=== PATIENT | female | born 1945 | race Caucasian/White ===

== ENCOUNTER 2024-08-25 22:38 | Emergency (ER) | payer MEDICARE, SELFPAY ==
[2024-08-25 22:47] VITALS: BP 171/92; PULSE 97; TEMP 36.4; O2SAT 100; BMI 27.4
--- NOTE | 2024-08-25 23:03 | ED_ITS ---
HPI HPI - General Adult General Chief complaint: Nausea/Vomiting/Diarrhea Stated complaint: HEADACHE, NAUSEA Time Seen by Provider: 08/25/24 22:52 Source: patient Mode of arrival: walk-in History of Present Illness HPI narrative: 79-year-old female to the emergency department with chief complaint of left- sided facial pressure, nasal congestion, nausea, and mild dizziness. Symptoms began this morning. They gradually got worse throughout the day. She denies any vision changes or eye pain. It is a pressure-like feeling in her frontal region. She has been sick for several days with URI type symptoms. She denies any vision changes, numbness, weakness, tingling, difficulty walking or speaking. She does have a history of migraines but reports that this is not a headache or similar to a migraine. She denies any fever, sweats, chills. She reports nausea without vomiting. Related Data Previous Rx's ?Medication ?Instructions ?Recorded amoxicillin 875 mg-potassium 1 tab PO Q12H #14 tabs 08/26/24 clavulanate 125 mg tablet ondansetron 4 mg disintegrating 4 mg PO Q8H PRN nausea and 08/26/24 tablet vomiting 4 days #16 tabs Allergies Allergy/AdvReac Type Severity Reaction Status Date / Time No Known Drug Allergies Allergy Verified 08/25/24 22:51 Opioid HPI Opioid Management Most Recent Opioid Data: No Data to Display Review of Systems ROS Status of ROS 10 or more systems reviewed and unremark able except as noted in history and below PFSH PFSH Social History Little interest or pleasure in doing things: not at all Feeling down, depressed, or hopeless: not at all Exam Narrative Exam Narrative: VITALS: I have reviewed the triage vital signs. GENERAL: Well developed, well appearing adult female in no acute distress. NEURO: Alert and oriented. Moves all extremities. Face is symmetric and expressive. EYES: PERRL. No scleral icterus or conjunctival injection. No discharge. Globes soft bilaterally. HENT: Normocephalic, atraumatic. Hearing is grossly intact. Nares grossly patent and without discharge. Mucous membranes moist. Tenderness with percussion over the frontal sinuses. Left TM effusion, right TM normal. No temporal tenderness. Cardio: Regular rate and rhythm. No JVD. No lower extremity swelling. Respiratory: Lung sounds clear. Easy respirations. No increased work of breathing. NECK: No JVD. Patient moves neck without restriction. EXTREMITIES: Symmetric muscle bulk. No joint swelling. No clubbing, cyanosis, or deformity. SKIN: Warm and dry. Normal turgor. No rash or lesions appreciated. PSYCH: Anxious Constitutional Vital Signs, click to edit/add: Last Vital Signs Temp 97.5 F L 08/25/24 22:47 Pulse 88 08/26/24 01:03 Resp 16 08/26/24 01:03 BP 138/90 08/26/24 01:03 Pulse Ox 96 08/26/24 01:04 O2 Del Method Room Air 08/26/24 01:04 O2 Flow Rate 0 08/25/24 23:53 Course Vital Signs Vital signs: Vital Signs Temperature 97.5 F L 08/25/24 22:47 Pulse Rate 97 H 08/25/24 22:47 Respiratory Rate 24 H 08/25/24 22:47 Blood Pressure 171/92 H 08/25/24 22:47 Pulse Oximetry 100 08/25/24 22:47 Oxygen Delivery Method Room Air 08/25/24 22:47 Temperature 97.5 F L 08/25/24 22:47 Pulse Rate 88 08/26/24 01:03 Respiratory Rate 16 08/26/24 01:03 Blood Pressure 138/90 08/26/24 01:03 Pulse Oximetry 96 08/26/24 01:04 Oxygen Delivery Method Room Air 08/26/24 01:04 Oxygen Delivery Flow Rate 0 08/25/24 23:53 Medical Decision Making MDM Narrative Medical decision making narrative: 79-year-old female to the emergency department with chief complaint of nasal congestion, left-sided sinus pain, dizziness. Vital stable, the patient is afebrile. History and exam are concerning for acute sinusitis. No other evidence of acute process. She is tender to percussion over the sinus, not a headache. Not tender over the adventism. Do not believe this represents giant cell arteritis. No focal neurologic deficits. I discussed my suspicion with the patient and her daughter. They are agreeable with treatment. Toradol and dexamethasone for symptoms. Augmentin for sinusitis. Zofran for mild nausea. While awaiting her medications the patient complained of some shortness of breath. When evaluated the patient at the bedside. She was very anxious and appeared to be having a panic attack. Her lungs were clear to auscultation. Her pulse ox was normal. After discussing with the patient and she was able to relax and was no longer experiencing shortness of breath. Chest x-ray and EKG were ordered to make sure we are not missing anything. Patient agreed with this plan. Chest x-ray without acute findings. EKG without evidence of ischemia. COVID test is positive Patient reexamined at the bedside. She feels much improved. She would like discharge which I believe is reasonable. Zofran for nausea. She is instructed to use Tylenol or ibuprofen for her pain and fever. Zofran for nausea. Return precautions were discussed. All questions were answered. The patient was discharged home Medical Records Medical records reviewed: Yes I reviewed the patient's medical records Lab Data Lab results reviewed: Yes I reviewed the patient's lab results Labs: Lab Results 08/25/24 Range/Units 23:57 Influenza Type A Ag Negative Influenza Type B Ag Negative SARS-CoV-2 Ag (CV2AG) Positive A (NEGATIVE) Imaging Data Chest x-ray: Radiologist's impression: ITS Impressions Chest X-Ray 08/25/24 23:19 IMPRESSION: 1. No acute cardiopulmonary process. 2. Hyperexpanded lungs suggestive of COPD. Electronically authenticated by: REGAN HERMAN Date: 08/25/2024 23:53 ECG Data Attestation: I personally reviewed and interpreted this ECG as follows: (Normal sinus rhythm at a rate of 78. No STEMI. Normal QTc) Discharge Plan Discharge Chief Complaint: Nausea/Vomiting/Diarrhea Clinical Impression: Acute frontal sinusitis, COVID-19 Patient Disposition: Home, Self-Care Time of Disposition Decision: 01:15 Condition: Good Mode of Transportation: Private Vehicle Prescriptions / Home Meds: New ondansetron 4 mg tablet,disintegrating 4 mg PO Q8H PRN (Reason: nausea and vomiting) 4 Days Qty: 16 0RF amoxicillin-pot clavulanate 875-125 mg tablet 1 tab PO Q12H Qty: 14 0RF Print Language: [place] Instructions: Sinusitis (ED), COVID-19 (Coronavirus Disease 2019) (ED) Additional Instructions: Call the office of your primary care doctor to arrange for follow-up within the above-stated timeframe. Your ED visit was focused on your acute issue and does not replace primary care. You should review your labs, imaging, and diagnoses from this ED visit with your primary care physician. There may be non-emergent/ incidental findings that need further evaluation. You should review your vital signs including blood pressure with your PCP. If you were prescribed medications you should discuss possible side-effects and drug interactions with your pharmacist. Call 911 or go to the nearest Emergency Department if you develop any new or worsening symptoms. Seek immediate medical attention if you develop: worsening shortness of breath, difficulty breathing, chest pain, nausea, vomiting, weakness, numbness, tingling, excessive sweating, loss of motion in your arms or legs, or any new or worsening symptoms. Referrals: MUSHTAQ FERRARO [Primary Care Provider] - 1 week
[2024-08-25 23:07] VITALS: O2SAT 100
--- NOTE | 2024-08-25 23:19 | ECG_ITS ---
The [facility] Test Date: 2024-08-25 Pat Name: MIHAI FENTON Department: Room: - Gender: Female Educational Psychologist: : 1945 Requested By: MUSHTAQ FERRARO Order Number: [id number] Reading MD: KATIE SEAY Measurements Intervals [place] Rate: 78 P: 69 MA: 146 QRS: 79 QRSD: 82 T: 65 QT: 382 QTc: 416 Interpretive Statements 1100 Sinus rhythm 9110 normal ECG Compared to ECG 12/14/2020 08:28:28 No significant changes Electronically Signed On 08-28-2024 8:13:24 EST by KATIE SEAY
--- NOTE | 2024-08-25 23:19 | XR_ITS ---
The [address] [address] Patient Name: MIHAI FENTON MRN: [id number] date: 1945 Sex: F Assigned Patient Location: ER Current Patient Location: ER Accession/Order Number: [id number] Exam Date: 08/25/2024 23:30 Report Date: 08/25/2024 23:53 At the request of: FRAN TRACEY Procedure: XR chest 2V EXAMINATION: XR chest 2V HISTORY: shortness of breath COMPARISON: No relevant comparison available. FINDINGS: LUNGS: No significant pulmonary parenchymal abnormalities. VASCULATURE: No increased pulmonary vasculature. PLEURA: No pneumothorax, effusion, or pleural thickening. CARDIAC: No cardiomegaly or cardiac silhouette abnormality. MEDIASTINUM: No visible mass or adenopathy. BONES: No fracture or visible bone lesion. OTHER: Negative. XR/XR chest 2V IMPRESSION: 1. No acute cardiopulmonary process. 2. Hyperexpanded lungs suggestive of COPD. Electronically authenticated by: REGAN HERMAN Date: 08/25/2024 23:53
[2024-08-25] MEDS: ONDANSETRON 4 MG RAPDIS TABLET SL (23:50)
[2024-08-25] MEDS: DEXAMETHASONE SOD PHOS 10 MG/ML VIAL PO (23:51)
[2024-08-25] MEDS: AMOXICILLIN/POT CLAV 875-125 MG TABLET 1 TAB PO (23:52)
[2024-08-25] MEDS: KETOROLAC TROMETHAMINE 30 MG/ML VIAL IM (23:52)
[2024-08-25 23:53] VITALS: O2SAT 95
--- NOTE | 2024-08-25 23:53 | PC.NURSE ---
placed on 1L nc for comfort
[2024-08-26 00:44] LABS: Influenza Virus A Antigen Negative; Influenza Virus B Antigen Negative; Internal Control Within Normal Limits
[2024-08-26 00:45] LABS: SARS-CoV-2 Ag POSITIVE (NEGATIVE)
[2024-08-26 01:03] VITALS: BP 138/90; PULSE 88; O2SAT 96
[2024-08-26 01:04] VITALS: O2SAT 96
--- NOTE | 2024-08-26 01:04 | PC.NURSE ---
NC removed to monitor pt, pt states feeling better at this time
== END 2024-08-26 01:30 | disposition home or self-care (01) ==
PROVIDERS: Emergency Provider Student in an Organized Health Care Education/Training Program; PCP Family Medicine
DX: U07.1 COVID-19 (principal); J01.10 Acute frontal sinusitis, unspecified
CPT/HCPCS: 71046; 87804; 87811; 93005; 96372; 99285; J1100; J1885; Q0162

== ENCOUNTER 2025-06-17 18:19 | Emergency (ER) | payer MEDICARE, SELFPAY ==
[2025-06-17 18:28] VITALS: BP 159/98; PULSE 91; TEMP 37.3; O2SAT 96; BMI 21.6
--- NOTE | 2025-06-17 18:42 | ED.EXTPRO1 ---
HPI - Extremity Problem General Chief complaint: Extremity Problem, Nontraumatic Stated complaint: RIGHT FOOT HURTS Time Seen by Provider: 06/17/25 18:29 Source: patient Mode of arrival: walk-in History of Present Illness HPI Narrative: Patient presents to the emergency department with complaints of right foot and ankle pain that is began to radiate into the calf and lower leg. Patient states that symptoms been ongoing over the past 2 months. Patient initially had seen her doctor who prescribed a cream which she applied however pain was not improving so he obtained x-rays approximately 1 week ago that showed no obvious fracture. Patient referred to podiatry and has a follow-up appointment on Friday however she states that the pain is persisting despite the use of Tylenol and was looking up possibilities online and is concerned that it could be a blood clot. Patient denies any chest pain or shortness of breath MD Complaint: Reports extremity pain Onset (ago): month(s) Pain Consistency: Reports intermittent Location: Reports right and lower extremity Radiation: Reports proximal Relieving factors: Reports rest Exacerbating factors: Reports range of motion, weight bearing and walking Associated symptoms: Reports denies other symptoms; Denies chest pain or shortness of breath Related Data Previous Rx's ?Medication ?Instructions ?Recorded amoxicillin 875 mg-potassium 1 tab PO Q12H #14 tabs 08/26/24 clavulanate 125 mg tablet ondansetron 4 mg disintegrating 4 mg PO Q8H PRN nausea and 08/26/24 tablet vomiting 4 days #16 tabs Allergies Allergy/AdvReac Type Severity Reaction Status Date / Time No Known Drug Allergies Allergy Verified 08/25/24 22:51 Review of Systems ROS Status of ROS 10 or more systems reviewed and unremarkable except as noted in history and below Constitutional Denies: fever or chills Cardiovascular Denies: chest pain Respiratory Denies: shortness of breath Musculoskeletal Reports: joint pain and joint swelling; Denies: muscle weakness Integumentary/Breast Denies: rash, redness, skin pain, skin tenderness or skin swelling PFSH PFSH Social History Little interest or pleasure in doing things: not at all Feeling down, depressed, or hopeless: not at all Exam Constitutional Vital Signs, click to edit/add: Last Vital Signs Temp 99.1 F 06/17/25 18:28 Pulse 91 H 06/17/25 18:28 Resp 18 06/17/25 18:28 BP 159/98 H 06/17/25 18:28 Pulse Ox 96 06/17/25 18:28 O2 Del Method Room Air 06/17/25 18:28 Documenting provider has reviewed patient's vital signs: yes Common normals: no apparent distress, oriented x3, no limitations, healthy appearing and alert Respiratory Common normals: normal respiratory effort Cardio Peripheral pulses: pulses 2+ throughout, posterior tibial pulses present and dorsalis pedis pulses present Extremity Common normals: normal to inspection, full ROM, normal capillary refill and no clubbing, cyanosis or edema Course Vital Signs Vital signs: Vital Signs Temperature 99.1 F 06/17/25 18:28 Pulse Rate 91 H 06/17/25 18:28 Respiratory Rate 18 06/17/25 18:28 Blood Pressure 159/98 H 06/17/25 18:28 Pulse Oximetry 96 06/17/25 18:28 Oxygen Delivery Method Room Air 06/17/25 18:28 Temperature 99.1 F 06/17/25 18:28 Pulse Rate 91 H 06/17/25 18:28 Respiratory Rate 18 06/17/25 18:28 Blood Pressure 159/98 H 06/17/25 18:28 Pulse Oximetry 96 06/17/25 18:28 Oxygen Delivery Method Room Air 06/17/25 18:28 MDM - Extremity (Nontraumatic) MDM Narrative Medical decision making narrative: Patient presented to the emergency department with a 2-month history of right foot and ankle pain. Patient had outpatient x-rays done 1 week ago without acute fractures. Patient presented due to persisting pain with difficulty with ambulation and associated pain and swelling moving proximal to the ankle. Ultrasound of the right lower extremity was obtained and negative for DVT. Patient will be placed in orthotic boot advised to keep her follow-up with podiatry scheduled for Friday Differential Diagnosis Differential diagnosis: Likely gout, deep vein thrombosis of lower extremity and other Imaging Data Venous US: Attestation: I have reviewed the pertinent imaging results. Radiologist's impression: Negative for DVT Discharge Plan Discharge Chief Complaint: Extremity Problem, Nontraumatic Clinical Impression: Moderate right ankle sprain Patient Disposition: Home, Self-Care Time of Disposition Decision: 19:42 Condition: Good Mode of Transportation: Private Vehicle Prescriptions / Home Meds: No Action ondansetron 4 mg tablet,disintegrating 4 mg PO Q8H PRN (Reason: nausea and vomiting) 4 Days Qty: 16 0RF amoxicillin-pot clavulanate 875-125 mg tablet 1 tab PO Q12H Qty: 14 0RF Print Language: Ma[place] Instructions: Ankle Sprain (ED), Walking Boot (ED) Referrals: MUSHTAQ FERRARO [Primary Care Provider, Family Practice] - 1 week Discharge Date/Time: 06/17/25 20:13
--- OUTSIDE RECORDS SUMMARY | 2025-06-17 19:01 | XMS_ITS | CCD ---
Author Organization [facility] CliniSynj Care Team Providers Care Curtain Stitcher Name Role Phone RUFINA, DR AMANDA Galicia Attending Unavailable RUFINA, DR AMANDA Galicia Consulting Unavailable JASMINE, DR LANDIN Primary Care Unavailable RUFINA, DR AMANDA Galicia Admitting Unavailable ZIEBER, DR REGAN Mcgregor Consulting Unavailable TERESA, LUIS FELIPE Consulting Unavailable Onel, Brennon Consulting Unavailable Jennifer, Amira Consulting Unavailable YAMEL FERRARI Consulting Unavailable SHAWN FERRARO Primary Care Physician SHAWN FERRARO Primary Care Physician Unavail able Amira Flaherty Attending Unavailable Flaherty, Amira Walsh Admitting Unavailable Flaherty, Amira Walsh Referring Unavailable Flaherty, Amira Walsh Attending Unavailable Flaherty, Amira Walsh Admitting Unavailable Flaherty, Amira T Referring Unavailable Flaherty, Amira Walsh Attending Unavailable Flaherty, Amira Walsh Admitting Unavailable Flaherty, Amira Walsh Referring Unavailable Shawn Ferraro MD Primary Care Provider Shawn Ferraro MD Unavailable Shawn Ferraro MD Primary Care Provider Shawn Ferraro MD Unavailable Anthony Lopez DO Emergency Provider Shawn Ferraro MD Primary Care Provider Isha Salazar APRN Emergency Provider Amira Sparks MD Emergency Provider [phone] Shawn Ferraro Primary Care Unavailable Anthony Lopez Admitting Unavailable Anthony Lopez Attending Unavailable Isha Salazar Attending Unavailable Shawn Ferraro Primary Care Unavailable Isha Salazar Admitting Unavailable Amira Sparks Admitting Unavailable Amira Sparks Attending Unavailable Shawn Ferraro Primary Care Unavailable Black CLARITY DEVELOPER, Ruthy Unavailable Shawn Ferraro MD Unavailable [phone] SHAWN FERRARO Attending Unavailable SAMANTHA BAIN Attending Unavailable AMIRA FLAHERTY Attending Unavailable AMIRA FLAHERTY Referring Unavailable AMIRA FLAHERTY Referring Unavailable RAIMUNDO LOMAX Attending Unavailable SAMANTHA BAIN Attending Unavailable SAMANTHA BAIN Attending Unavailable RAIMUNDO LOMAX Attending Unavailable SHAWN FERRARO Attending Unavailable SHAWN FERRARO Referring Unavailable SHAWN FERRARO Referring Unavailable Medications Current Medications MedicationDrug Class(es)DatesSig (Normalized)Sig (Original)acetaminophen 325 mg / oxyCODONE hydrochloride 5 mg oral tablet (1 source)Opioid AgonistStart: 28-80-5093fjns 1-2 tablets by mouth every four hours as needed for painPercocet 5 mg-325 mg oral tablet See Instructions, 50 tab(s), Refill(s) 0, Take 1-2 po q 4 hours prn knee surgery pain, [id number], 157, cm, 09/30/22 11:59:00 EST, Height/Length Dosing, 54.6,kg, 09/30/22 11:59:00 EST, Weight Dosing Start Date: 10/17/22 Status: OrderedAgilease (2 sources)Start: 14-38-0051pncz 1 tablet by mouth twice dailyAgilease Agilease, 1 tab, Oral, BID Start Date: 09/30/22 Status: Orderedamoxicillin 875 mg / clavulanate 125 mg oral tablet (5 sources)Penicillin-class AntibacterialStart: 26-37-2123skag 1 tablet by mouth twice dailyAmoxicillin-Pot Clavulanate 875-125 mg tablet Active 1 TAB PO Twice daily August 29, 2024 12:00amStart: 08-26-2024 End: 50-84-9969zhsn 1 tablet by mouth in the morningamoxicillin-clavulanate (Augmentin) 875-125 MG tablet Take 875 mg by mouth in the morning and 875 mg before bedtime. 08/26/2024 09/14/2024 Discontinued (Therapy completed)ascorbic acid 1000 mg oral tablet (20 sources)Vitamin CAscorbic Acid (vitamin C) 1000 MG tablet 1 (one) time each day at the same time Activeascorbic acid 60 mg / beta carotene 5000 unt / copper sulfate 40 mg / dl-alpha tocopheryl acetate 30 unt / sodium selenite 0.04 mg / zinc oxide 40 mg oral tablet (20 sources)Vitamin CMultiple Vitamin (Multivitamin Adult) tablet 1 (one) time each day at the same time Activeaspirin 325 mg oral tablet (1 source)Platelet Aggregation Inhibitor, Nonsteroidal Anti-inflammatory Drug Start: 10-17-2022 End: 76-48-0442keod 1 tablet by mouth once dailyaspirin 325 mg Tab 325 mg = 1 tab(s), Oral, Daily, Start the day after surgery, X 30 day(s), # 30 tab(s), Refills(s) 0, Pharmacy: [id number], 157, cm, 09/30/22 11:59:00 EST, Height/Length Dosing, 54.6, kg, 09/30/22 11:59:00 EST, Weight Dosing Start Date: 10/17/22 Stop Date: 11/16/22 Status: Orderedatropine sulfate 10 mg/ml ophthalmic solution (15 sources)Anticholinergic, Cholinergic Muscarinic AntagonistStart: 09-16-2024 take 1 drop(s) into the eye(s) in the morningatropine 1 % ophthalmic solution Administer 1 drop into the left eye in the morning and 1 drop before bedtime. 09/16/2024 Activeb complex vitamins capsule (20 sources)take 1 capsule by mouth once dailyb complex vitamins capsule Take 1 capsule by mouth Daily Activebiotin 10 mg oral capsule (5 sources)Start: 11-03-2024 End: 25-43-8926xjua 1 capsule by mouth once dailybiotin 10 MG capsule Indications: PHN (postherpetic neuralgia) (CMS/HCC) Take 1 capsule (10 mg) by m outh Daily 30 capsule 2 11/03/2024 02/01/2025 ActiveBLM (2 sources)Start: 22-47-9426tcsa 1 tablet by mouth once dailyBLM BLM, 1 tab, Oral, Daily Start Date: 09/30/22 Status: Orderedcalcium citrate 950 mg oral tablet (20 sources)take 1 tablet by mouth in the morningcalcium citrate (Calcitrate) 950 (200 Ca) MG tablet Take 475 mg by mouth in the morning and 475 mg before bedtime. Activecarbidopa 10 mg / levodopa 100 mg oral tablet (20 sources)Aromatic Amino Acid Decarboxylation Inhibitor, Aromatic Amino Acid Start: 60-16-8223qism 1 tablet by mouth three times dailyCarbidopa-Levodopa 10- 100 mg tablet Active 1 TAB PO Three times daily August 29, 2024 12:00amStart: 04-09-2024 End: 67-04-3344gwof 1 tablet by mouth in the morning, then take 1 tablet by mouth in the evening, then take 1 tablet by mouth at bedtimecarbidopa-levodopa (Sinemet) 10-100 MG tablet Indications: Parkinson's disease 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 (HCC) Take 1 tablet by mouth in the morning and 1 tablet in the evening and 1 tablet before bedtime. 90 tablet 11 08/04/2024 ActiveCelebrate Multivitamin oral capsule (2 sources)Start: 41-84-6493atrp 1 tablet by mouth once dailyCelebrate Multivitamin oral capsule 1 tab, Oral, Daily, Prophylaxis Start Date: 09/30/22 Status: Orderedcephalexin 500 mg oral capsule (1 source)Cephalosporin AntibacterialStart: 10-17-2022 End: 68-38-1059yyfy 1 capsule by mouth four times dailyKeflex 500 mg Cap 500 mg = 1 cap(s), Oral, QID, Start the day after surgery, X 5 day(s), # 20 cap(s), Refills(s) 0, Pharmacy: [facility]/pharmacy #[id number], 157, cm, 09/30/22 11:59:00 EST, Height/Length Dosing,54.6, kg, 09/30/22 11:59:00 EST, Weight Dosing Start Date: 10/17/22 Stop Date: 10/22/22 Status: Orderedcholecalciferol 0.125 mg oral capsule (20 sources)Vitamin Dtake 1 capsule by mouth once dailycholecalciferol (Vitamin D-3) 125 MCG (5000 UT) capsule Take 5,000 Units by mouth Daily Activetake 1 capsule by mouth in the morningcholecalciferol (Vitamin D-3) 125 MCG (5000 UT) capsule Take 5,000 Units by mouth in the morning. ActiveCitracal Regular 250 mg- 200 intl units oral tablet (2 sources)Start: 96-39-1990gbnd 1 tablet by mouth three times dailyCitracal Regular 250 mg-200 intl units oral tablet 1 tab(s), Oral, TID, Prophylaxis Start Date: 09/30/22 Status: Ordereddocusate sodium 100 mg oral capsule (3 sources)Start: 66-87-8200eqol 1 capsule by mouth twice dailyColace 100 mg Cap 100 mg = 1 cap(s), Oral, BID, # 20 cap(s), Refills(s) 0, Pharmacy: [facility]/pharmacy #[id number], 157, cm, 09/30/22 11:59:00 EST, Height/Length Dosing, 54.6, kg, 09/30/22 11:59:00 EST, Weight Dosing Start Date: 10/17/22 Status: OrderedStart: 09-30-2022 take 1 capsule by mouth once daily as needed for constipationDulcolax Stool Softener 100 mg oral capsule 100 mg = 1 cap(s), Oral, Daily, PRN for constipation Start Date: 09/30/22 Status: Orderedgabapentin 100 mg oral capsule (3 sources)Anti-epileptic AgentStart: 21-44-0350cpqdeyjdfj (Neurontin) 100 MG capsule Indications: Post herpetic neuralgia (CMS/HCC) Titrate from 1to 4 capsules three times daily as needed for pain 100 capsule 09/14/2024 ActiveKRILL OIL PO (20 sources)take 1 capsule by mouth once dailyKRILL OIL PO Take 1 capsule by mouth Daily Activelife 9 (2 sources)Start: 84-47-7033ndyt 9 tablets by mouth once dailylife 9 life 9, 1 tab, Oral, Daily Start Date: 09/30/22 Status: Orderedmagnesium oxide 500 mg oral capsule (2 sources)Start: 76-05-6249pqpj 1 capsule by mouth once dailymagnesium oxide 500 mg oral capsule 500 mg = 1 cap(s), Oral, Daily, Prophylaxis Start Date: 09/30/22 Status: Orderedmeloxicam 7.5 mg oral tablet (8 sources)Nonsteroidal Anti-inflammatory DrugStart: 08-04-2024 End: 63-28-8887pwvc 1 tablet by mouth once dailymeloxicam (Mobic) 7.5 MG tablet Indications: Primary osteoarthritis of right foot Take 1 tablet (7.5 mg) by mouth Daily 30 tablet 11 04/28/2025 04/28/2026 ActiveNature's Bounty Red Krill Oil 500 mg oral capsule (2 sources)Start: 96-97-0345dvhf 1 capsule by mouth once dailyNature's Bounty Red Krill Oil 500 mg oral capsule 500 mg, 1 cap(s), Oral, Daily, Prophylaxis Start Date: 09/30/22 Status: Orderedondansetron 4 mg oral tablet (6 sources)Serotonin-3 Receptor AntagonistStart: 08-27-2024 End: 94-36-1594Tqttvnuqrdm Hcl 4 mg tablet Active 4 MG PO every 6 to 8 hours as needed for nausea and vomiting August 27, 2024 12:00ampolyvinyl alcohol 0.005 ml/ml / povidone 6 mg/ml ophthalmic solution (8 sources)Start: 61-04-2987yvgy 5-6 mg into the eye(s) every four hours Polyvinyl Alcohol-Povidone (Clear Eyes Natural Tears) 5-6 MG/ML solution Indications: PHN (postherpetic neuralgia) Administer 2 drops into affected eye(s) every 4 (four) hours if needed (dry eye) 15 mL 3 11/03/2024 Active predniSONE 50 mg oral tablet (3 sources)Start: 23-21-1995eemf 1 tablet by mouth once dailyPrednisone 50 mg tablet Active 50 MG PO Daily 5 5 August 27, 2024 12:00ampsyllium 400 mg oral capsule (2 sources)Start: 27-43-4197khcx 1 capsule by mouth once dailyMetamucil 400 mg oral capsule 400 mg = 1 cap(s), Oral, Daily, Refills(s) 0, Constipation Start Date: 09/30/22 Status: OrderedStrontium (2 sources)Start: 15-23-3399ilxl 1 tablet by mouth once dailyStrontium Strontium, 1 tab, Oral, Daily Start Date: 09/30/22 Status: OrderedSuper B-50 oral capsule (2 sources)Start: 43-21-6291vcdk 1 capsule by mouth once dailySuper B-50 oral capsule 1 cap(s), Oral, Daily, Prophylaxis Start Date: 09/30/22 Status: Ordered thiamine 100 mg oral tablet (11 sources)Start: 10-11-2024 End: 52-47-0216ikan 1 tablet by mouth once dailythiamine (Vitamin B-1) 100 MG tablet Indications: PHN (postherpetic neuralgia) Take 1 tablet (100 mg) by mouth Daily 90 tablet 3 10/11/2024 10/11/2025 ActivetraMADol hydrochloride 50 mg oral tablet (3 sources)Opioid AgonistStart: 09-14-2024 End: 84-29-2720ronu 1 tablet by mouth three times daily as needed for pain traMADol (Ultram) 50 MG tablet Indications: Post herpetic neuralgia (CMS/HCC) Take 1 tablet (50 mg)by mouth 3 (three) times a day as needed for moderate pain for up to 7 days 21 tablet 09/14/2024 09/21/2024 ActivevalACYclovir 1000 mg oral tablet (5 sources)Herpesvirus Nucleoside Analog DNA Polymerase Inhibitor, Herpes Simplex Virus Nucleoside Analog DNA Polymerase Inhibitor, Herpes Zoster Virus Nucleoside Analog DNA Polymerase InhibitorStart: 84-52-2080axiOKFprjbuu (Valtrex) 1 g tablet Take 1,000 mg by mouth in the morning and 1,000 mg in the eveningand 1,000 mg before bedtime. 09/03/2024 ActiveVitamin C 100 mg oral tablet, chewable (2 sources)Start: 17-14-7964iwqp 1 tablet by mouth once dailyVitamin C 100 mg oral tablet, chewable 1 tab, Oral, Daily, Prophylaxis Start Date: 09/30/22 Status: OrderedVitamin D3 5000 intl units (125 mcg) oral tab (2 sources)Start: 98-69-0635nrbc 1 tablet by mouth once dailyVitamin D3 5000 intl units (125 mcg) oral tab 125 mcg = 1 tab(s), Oral, Daily, Prophylaxis Start Date: 09/30/22 Status: OrderedVitamin K2 100 mcg oral tablet (2 sources)Start: 77-47-2767fmfq 1 tablet by mouth once dailyVitamin K2 100 mcg oral tablet 100 mcg, 1 tab(s), Oral, Daily, Prophylaxis Start Date: 09/30/22 Status: Orderedzinc acetate 25 mg oral capsule (2 sources)Start: 35-13-9853nzco 1 capsule by mouth once dailyzinc acetate 25 mg oral capsule 25 mg = 1 cap(s), Oral, Daily, on an empty stomach 1 hour before or 2 hours after eating, Prophylaxis Start Date: 09/30/22 Status: Ordered Completed/Discontinued Medications MedicationDrug Class(es)DatesSig (Normalized)Sig (Original)12 hr carBAMazepine 100 mg extended release oral tablet (8 sources)Mood StabilizerStart: 11-03-2024 End: 17-43-5319qkqu 1 tablet by mouth in the morning, then take 1 tablet by mouth every twelve hours at bedtimecarBAMazepine XR (TEGretol XR) 100 MG 12 hr tablet Indications: PHN (postherpetic neuralgia) Take 1tablet (100 mg) by mouth in the morning and 1 tablet (100 mg) before bedtime. Do not crush, chew, or split.. 60 tablet 2 11/03/2024 05/02/2025 Discontinued (Med list cleanup) dexamethasone 2 mg oral tablet (11 sources)CorticosteroidStart: 10-11-2024 End: 05-49-5145rxog 1 tablet by mouth once dailydexAMETHasone (Decadron) 2 MG tablet Indications: PHN (postherpetic neuralgia) Take 1 tablet (2 mg)by mouth Daily for 7 days 7 tablet 10/11/2024 05/02/2025 Discontinued (Med list cleanup) difluprednate 0.5 mg/ml ophthalmic suspension (15 sources)Start: 09-15-2024 End: 54-77-3809oixbgpmffjbgc (Durezol) 0.05 % ophthalmic solution Administer 1 drop into the left eye 09/15/2024 05/02/2025 Discontinued (Med list cleanup) erythromycin 0.005 mg/mg ophthalmic ointment (17 sources)Macrolide, Macrolide AntimicrobialStart: 09-10-2024 End: 02-55-4445stxqrfokyziy (Romycin) 5 MG/GM ophthalmic ointment Apply to left eye 3 (three) times a day 09/10/2024 05/02/2025 Discontinued (Med list cleanup) moxifloxacin 5 mg/ml ophthalmic solution (17 sources)Quinolone AntimicrobialStart: 09-10-2024 End: 26-31-7042zedxxkcydfcr (Vigamox) 0.5 % ophthalmic solution Administer 1 drop into the left eye in the morningand 1 drop at noon and 1 drop in the evening and 1 drop before bedtime. 09/10/2024 05/02/2025 Discontinued (Med list cleanup)prednisoLONE acetate 10 mg/ml ophthalmic suspension (17 sources)CorticosteroidStart: 09-10-2024 End: 35-68-1757jczt 1 drop(s) into the eye(s) every two hoursprednisoLONE acetate (Pred-Forte) 1 % ophthalmic suspension Administer 1 drop into the left eye Seeadministration instructions Every 2 hours 09/10/2024 05/02/2025 Discontinued (Med list cleanup)pregabalin 25 mg oral capsule (13 sources)Start: 09-27-2024 End: 27-74-7858jqlk 1 capsule by mouth in the morningpregabalin (Lyrica) 25 MG capsule Indications: PHN (postherpetic neuralgia) Take 1 capsule (25 mg) by mouth in the morning and 1 capsule (25 mg) before bedtime. 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; Translations: [Zoster iridocyclitis]22-71-5714MvrzqkobGvshknercwh deficiencies (20 sources)Vitamin D deficiency; Translations: [Vitamin D deficiency, unspecified]Onset: 676946-66-4457RchbbdxYssrsdkqagfomr (20 sources)Osteoarthritis of knee; Translations: [Unilateral primary osteoarthritis, right knee]Onset: 752553-59-9408ZevkgdnDqyuxvimraof (20 sources)Osteoporosis; Translations: [Age-related osteoporosis without current pathological fracture]Onset: 320510-11-7102WqmuwjvQulcd connective tissue disease (20 sources)Artificial knee joint present; Translations: [Presence of right artificial knee joint]Onset: 503884-02-5070ZbgnjjzGwpti lower respiratory disease (1 source)Wheezing; Translations: [Wheezing]Onset: 20-59-2503TdkaurpiGnzyy lower respiratory disease (1 source)Shortness of breath; Translations: [Shortness of breath]Onset: 81-40-3058OmljbpngCtjzn nervous system disorders (4 sources)Perez's palsy; 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]Onset: 67-69-9979Aoxzjyxu Other non-traumatic joint disorders (2 sources)Pain in left knee; Translations: [Pain in joint, lower leg]10-14-2024 EpisodicOther non-traumatic joint disorders (2 sources)Acute ankle pain; Translations: [Pain in right ankle and joints of right foot]06-12-2610JoqhaszkZxljz non-traumatic joint disorders (2 sources)Swollen ankle region; Translations: [Effusion, right ankle]05-02-2025 EpisodicOther skin disorders (1 source)Rash and other nonspecific skin eruption; Translations: [Rash and other nonspecific skin eruption]Onset: 17-33-2229OxonaogtJxgnosij codes; unclassified (2 sources)Body mass index 20-24 - normal; Translations: [Body mass index (BMI) 22.0-22.9, adult]56-53-9742IihcjxtpHzkpyvfehchi (20 sources)Parkinson's disease; Translations: [Parkinson's disease 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]Onset: hronic Unclassified (1 source)CONTACT W/AND (SUSP) EXPOS COVID-19; Translations: [CONTACT W/AND (SUSP) EXPOS COVID-19]Onset: 12-18-2020 Past or Other Problems Problem ClassificationProblemDateDocumented DateEpisodic/ChronicBlindness and vision defects (16 sources)Photophobia; Translations: [Visual discomfort, unspecified]Onset: 900037-40-0910SyochjuuCaymx valve disorders (20 sources)Heart murmur; Translations: [Cardiac murmur, unspecified]Onset: 937544-72-7364UkulbjwxSeke disorders (20 sources)Mood disordersOnset: Other aftercare (20 sources)Long-term current use of antiplatelet drug; Translations: [halfway (current) use of antithrombotics/antiplatelets]Onset: 08-14-2016 Resolved: 968767-79-7361SwjknintXqenk bone disease and musculoskeletal deformities (20 sources)Disorder of bone; Translations: [Other specified disorders of bone density and structure, right thigh]Onset: 061640-88-5404WjlslinzVhaoa connective tissue disease (20 sources)History of right total knee replacement; Translations: [Presence of right artificial knee joint]Onset: 02-17-2023 Resolved: 177764-87-6793DjnntsuOnecn connective tissue disease (20 sources)Muscle weakness; Translations: [Muscle weakness (generalized)]Onset: 822203-38-4154UrpfkikgArwvewpw codes; unclassified (20 sources)Postmenopausal state; Translations: [Asymptomatic menopausal state] Onset: 285158-13-8933KsqnicndKisrm infection (20 sources)Disease caused by 2019-nCoV; Translations: [COVID-19]Onset: 805166-52-8005Vatehmno Results Test NameValueInterpretationReference RangeFacilityXR ANKLE 3+ VIEWS RIGHTon 20-17-7148WF ANKLE 3+ VIEWS RIGHTXR ANKLE 3+ VIEWS RIGHT : 05/26/2025 9:25 AM CLINICAL HISTORY: ankle pain. COMPARISON: None available. TECHNIQUE: ROUTINE FINDINGS: There is swelling seen over the ankle. Is most prominent over the medial aspect of the ankle. The mortise joint is preserved. No radiopaque foreign body is seen. No periostitis is noted to suggest stress fracture. No radiopaque foreign body is seen in the soft tissues. A small spur is seen over theplantar aspect of the calcaneus. IMPRESSION: NO ACUTE FRACTURE OR DISLOCATION IS SEEN. THERE IS SWELLING SEEN OVER THE ANKLE AND LIGAMENTOUS INJURY CANNOT BE EXCLUDED. A SMALL HEEL SPUR IS NOTED. ELECTRONICALLY SIGNED BY: Spike FinleymalNot AvailableXR Knee - left 3 Viewson 11-92-8515Hcoivbo Result: Xrays taken in the office today saved to the permanent record, AP, sunrise and lateral weightbearing films, show stable position and alignment of the right TKA prosthesis. No sign of loosening, fracture or infection. Left knee moderate [facility] HealthcareRadiology Study observation (narrative)[facility] HealthcareXR Knee - right 3 Viewson 68-32-0594Flrswdr Result: Xrays taken in the office today saved to the permanent record, AP, sunrise and lateral weightbearing films, show stable position and alignment of the right TKA prosthesis. No sign of loosening, fracture or infection. Left knee moderate [facility] HealthcareRadiology Study observation (narrative)[facility] HealthcareAlanine aminotransferase [Enzymatic activity/volume] in Serum or PlasmaOrdered By: Amira Sparks on 47-69-7167CON [Catalytic activity/Vol]Alanine aminotransferase [Enzymatic activity/volume] in Serum or Plasma7-52[facility] Health SystemAlbumin [Mass/volume] in Serum or Plasma by Bromocresol green (BCG) dye binding methoOrdered By: Amira Sparks on 39-79-4648Eqqrskh BCG dye [Mass/Vol]Albumin [Mass/volume] in Serum or Plasma by Bromocresol green (BCG) dye binding metho3.5-5.7FOhioHealth Berger HospitalAlkaline phosphatase [Enzymatic activity/volume] in Serum or PlasmaOrdered By: Amira Sparks on 37-17-8669WGO [Catalytic activity/Vol]Alkaline phosphatase [Enzymatic activity/volume] in Serum or Cnbcjq66-601ZltalrktiOhio State Health SystemAmphetamine Screen Ql (U)Ordered By: Amira Sparks on 09-22-2024 Amphetamines Ql (U)Amphetamines screenNegativeOhio State Health System Appearance of UrineOrdered By: Amiar Sparks on 52-09-8466Oxztvvrdtd (U)Urine appearanceAbnormalClearOhio State Health SystemAspartate aminotransferase [Enzymatic activity/volume] in Serum or PlasmaOrdered By: Amira Sparks on 95-24-4631EOW [Catalytic activity/Vol]Aspartate aminotransferase [Enzymatic activity/volume] in Serum or BtrurxFih97-39UsageklnrOhio State Health SystemBacteria [Presence] in Urine by AutomatedOrdered By: Amira Sparks on 89-53-6456Fcebewzo Auto Ql (U)Bacteria [Presence] in Urine by AutomatedNone SeenOhio State Health SystemBarbiturates [Presence] in Urine by Screen methodOrdered By: Amira Sparks on 16-64-9328Mgrpbezoedri Screen Ql (U)Barbiturates [Presence] in Urine by Screen methodNegativeOhio State Health SystemBasophils Auto (Bld) [#/Vol]Ordered By: Amira Sparks on 14-32-2176Qcnizwpyi (Bld) [#/Vol]Automated basophil count0.0-0.2FOhioHealth Berger HospitalBasophils/100 WBC Auto (Bld)Ordered By: Amira Sparks on 51-56-2899Bwmqdrgra/100 WBC (Bld)Automated basophil %.Ohio [facility] Health SystemBenzodiazepines Screen Ql (U)Ordered By: Amira Sparks on 95-76-0881Gktziyyzdnplyub Ql (U)Benzodiazepines [Presence] in Urine by Screen methodNegativeOhio State Health SystemBenzoylecgonine [Presence] in Urine by Screen methodOrdered By: Amira Sparks on 07-56-7153Wxygjwueafosvap Screen Ql (U)Benzoylecgonine [Presence] in Urine by Screen methodNegative [facility] SystemBilirubin Test strip Ql (U)Ordered By: Amira Sparks on 85-94-2109Fgioxkvcl Ql (U)Bilirubin.total [Presence] in Urine by Test stripNegativeOhio State Health SystemBilirubin.total [Mass/volume] in Serum or PlasmaOrdered By: Amira Sparks on 12-69-3311Gljuqrodf [Mass/Vol] Bilirubin.total [Mass/volume] in Serum or Plasma0.3-1.0[facility] Health SystemCT head/brain wo conon 48-91-9364WQ head/[place] [address] CT Scan Report Signed Patient: Gela Fenton MR#: [id number] : 1945 Acct:[id number] Age/Sex: 79 / F ADM Date: 09/22/24 Loc: ER Room: Type: [facility] ER Attending Dr: Copies to: Amira Sparks MD Ordering Provider: Amira Sparks MD Date of Service: 09/22/24 CT/CT head/brain wo con: altered mental status Unenhanced head CT TECHNIQUE: Contiguous axial imaging of the head. The CT exam was performed using one or more the following dose reduction techniques: Automated exposure control, adjustment of the MA and/or Kv according to patient size, or use of the iterative reconstruction technique. COMPARISON: None HISTORY: Altered mental status. VENTRICLES: Within normal limits ATROPHY: None BRAIN PARENCHYMA: Adequate rg-white matter differentiation identified. HEMORRHAGE: None HERNIATION: No mass effect or herniation INFARCTION: No recent vascular distribution infarction is seen. EXTRA-AXIAL FLUID COLLECTIONS None MIDBRAIN: Unremarkable [place]: Unremarkable MEDULLA: Unremarkable SINUSES: Unremarkable ORBITS: Grossly unremarkable MASTOIDS: Unremarkable BONY STRUCTURES Intact ADDITIONAL FINDINGS: CT/CT head/brain wo con IMPRESSION: No acute findings. Impression dictated by: Lawson Mckeon M.D.09/22/2024 4:32 PM Dictation Location: [place] [address] Transcribed By: [facility] [facility] 09/22/24 1632 Dictated By: Lawson Mckeon DO 09/22/24 1631 Signed By: 09/22/24 1632[facility] Phys[facility] GroupCalcium [Mass/volume] in Serum or PlasmaOrdered By: Amira Sparks on 11-46-0780Vksijur [Mass/Vol]Calcium [Mass/volume] in Serum or Plasma8.6-10.3FOhioHealth Berger Hospital Cannabinoids [Presence] in Urine by Screen methodOrdered By: Amira Sparks on 42-01-6200Biwniudjtojg Screen Ql (U)Cannabinoids [Presence] in Urine by Screen methodNegativeOhio State Health SystemComment on above:These are unconfirmed results and should not be used for legal purposes. Drug Cut-Off Concentration: AMPH 1000 ng/mL RONI 200 ng/mL TIAGO 200 ng/mL COCM 300 ng/mL OP 300 ng/mL PCP 25 ng/mL THC 20 ng/mLCarbon dioxide, total [Moles/volume] in Serum or PlasmaOrdered By: Amira Sparks on 24-68-7127BQ6 [Moles/Vol]Carbon dioxide, total [Moles/volume] in Serum or Mjlhmg95.0-31.0[facility] Health SystemChloride [Moles/volume] in Serum or PlasmaOrdered By: Amira Sparks on 56-23-1226Csssftcu [Moles/Vol]Chloride [Moles/volume] in Serum or PlasmaLow 98-107[facility] Health SystemColor Auto (U)Ordered By: Amira Spraks on 97-66-7397Vxgcg (U)Color of Urine by AutoYellowOhio State Health SystemComplete Blood Count Auto Diffon 72-19-9676Ysspxtgqt (Bld) [#/Vol]0.0 10*3/uLNormal0.0-0.2The [facility] Physician GroupComment on above:Performed By: #### CK, BNP, HS TROP, CBC, CMP #### [place] [address] USABasophils/100 WBC (Bld)0.6 %Normal.[facility] Physician GroupComment on above:Performed By: #### CK, BNP, HS TROP, CBC, CMP #### [place] [address] USAEosinophils (Bld) [#/Vol]0.1 10*3/uLNormal0.0-0.45The [facility] Physician GroupComment on above:Performed By: #### CK, BNP, HS TROP, CBC, CMP #### [place] [address] USAEosinophils/100 WBC (Bld)1.4 %Normal.[facility] Physician GroupComment on above:Performed By: #### CK, BNP, HS TROP, CBC, CMP #### [place] [address] USAErythrocyte distribution width (RBC) [Ratio]14.3 %Normal 11.9-15.3The [facility] Physician GroupComment on above:Performed By: #### CK, BNP, HS TROP, CBC, CMP #### [place] [address] USAHematocrit (Bld) [Volume fraction]39.2 %Aqxqri70.0-46.4The [facility] Physician GroupComment on above:Performed By: #### CK, BNP, HS TROP, CBC, CMP #### [place] [address] USAHemoglobin (Bld) [Mass/Vol]13.6 g/wXPvpvqh75.8-15.4The [facility] Physician GroupComment on above:Performed By: #### CK, BNP, HS TROP, CBC, CMP #### [place] [address] USALymphocytes (Bld) [#/Vol]0.9 10*3/uLLow1.00-4.8The [facility] Physician GroupComment on above:Performed By: #### CK, BNP, HS TROP, CBC, CMP #### [place] [address] USALymphocytes/100 WBC (Bld)16.6 %Normal.The [facility] Physician GroupComment on above:Performed By: #### CK, BNP, HS TROP, CBC, CMP #### [address] (RBC) [Entitic mass]32.8 aaPtfsin95.7-34.3The [facility] Physician GroupComment on above:Performed By: #### CK, BNP, HS TROP, CBC, CMP #### [address] (RBC) [Entitic vol]94.6 kIVffscx65-300Wsr [facility] Physician GroupComment on above:Performed By: #### CK, BNP, HS TROP, CBC, CMP #### [place] [address] USAMean Corpuscular HGB Conc34.7 g/zLQgkkxx32.0-35.0The [facility] Physician GroupComment on above:Performed By: #### CK, BNP, HS TROP, CBC, CMP #### [place] [address] USAMonocytes (Bld) [#/Vol]0.8 10*3/uLNormal0.0-0.8The [facility] Physician GroupComment on above:Performed By: #### CK, BNP, HS TROP, CBC, CMP #### [place] [address] USAMonocytes/100 WBC (Bld)15.66 %Normal0.00-20.00The [facility] Physician GroupComment on above:Performed By: #### CK, BNP, HS TROP, CBC, CMP #### [place] [address] USAMonocytes/100 WBC (Bld)14.7 %Normal.[facility] Physician GroupComment on above:Performed By: #### CK, BNP, HS TROP, CBC, CMP #### [place] [address] USANeutrophils (Bld) [#/Vol]3.7 10*3/uLNormal1.8-7.7The [facility] Physician GroupComment on above:Performed By: #### CK, BNP, HS TROP, CBC, CMP #### [place] [address] USANeutrophils/100 WBC (Bld)66.7 %Normal.The [facility] Physician GroupComment on above:Performed By: #### CK, BNP, HS TROP, CBC, CMP #### [place] [address] USANRBC%0.1 /100{WBC}Normal0-0.5The [facility]ician Group Comment on above:Performed By: #### CK, BNP, HS TROP, CBC, CMP #### [place] [address] USAPlatelet mean volume (Bld) [Entitic vol]6.8 fLNormal 6.3-10.7The [facility] Physician GroupComment on above:Performed By: #### CK, BNP, HS TROP, CBC, CMP #### [place] [address] USAPlatelets (Bld) [#/Vol]235 10*3/zAEtxpgh758-866Chk [facility] Physician GroupComment on above:Performed By: #### CK, BNP, HS TROP, CBC, CMP #### [place] [address] USARBC (Bld) [#/Vol]4.14 10*6/uLNormal3.60-5.00The [facility] Physician GroupComment on above:Performed By: #### CK, BNP, HS TROP, CBC, CMP #### [place] [address] USAWBC (Bld) [#/Vol]5.6 10*3/uLNormal3.8-11.6The [facility] Physician GroupComment on above:Performed By: #### CK, BNP, HS TROP, CBC, CMP #### [place] [address] USAComprehensive Metabolic Panelon 69-68-8491Aelejuk [Mass/Vol]4.2 g/dLNormal3.5-5.7The [facility] Physician GroupComment on above: Performed By: #### CK, BNP, HS TROP, CBC, CMP #### [place] [address] USAAlbumin/Globulin [Mass ratio]1.4 {ratio}NormalThe [facility] Physician GroupComment on above:Performed By: #### CK, BNP, HS TROP, CBC, CMP #### [place] [address] USAALP [Catalytic activity/Vol]49 U/PVehzix06-383Zxt [facility] Physician GroupComment on above:Performed By: #### CK, BNP, HS TROP, CBC, CMP #### [place] [address] USAALT [Catalytic activity/Vol]7 U/LNormal7-52The [facility] Physician GroupComment on above:Performed By: #### CK, BNP, HS TROP, CBC, CMP #### [place] [address] USAAnion gap [Moles/Vol]8.8 mmol/LNormal6.0-15.0The [facility] Physician GroupComment on above:Performed By: #### CK, BNP, HS TROP, CBC, CMP #### [place] [address] USAAST [Catalytic activity/Vol]12 U/KYbm04-71Drw [facility] Physician GroupComment on above:Performed By: #### CK, BNP, HS TROP, CBC, CMP #### [place] [id number] USABilirubin [Mass/Vol]0.4 mg/dLNormal0.3-1.0The [facility] Physician GroupComment on above:Performed By: #### CK, BNP, HS TROP, CBC, CMP #### [facility] [address] [place] [address] USACalcium [Mass/Vol]9.2 mg/dLNormal8.6-10.3The [facility] Physician GroupComment on above:Performed By: #### CK, BNP, HS TROP, CBC, CMP #### [place] [address] USAChloride [Moles/Vol]97 mmol/IRih91-011Nxq [facility] Physician GroupComment on above:Performed By: #### CK, BNP, HS TROP, CBC, CMP #### [place] [address] USACO2 [Moles/Vol]28.3 mmol/HGwfgwk14.0-31.0The [facility] Physician GroupComment on above:Performed By: #### CK, BNP, HS TROP, CBC, CMP #### [place] [address] USACreatinine [Mass/Vol]0.71 mg/dLNormal0.60-1.20The [facility] Physician GroupComment on above:Performed By: #### CK, BNP, HS TROP, CBC, CMP #### [place] [address] USACreatinine Clr Calc Klaotexk05.58NormalThe [facility] Physician GroupComment on above:Performed By: #### CK, BNP, HS TROP, CBC, CMP #### [place] [address] USAGFR/1.73 sq M.predicted MDRD (S/P/Bld) [Vol rate/Area] mL/min/{1.73_m2}NormalThe [facility] Physician GroupComment on above:Performed By: #### CK, BNP, HS TROP, CBC, CMP #### [place] [address] USAGlobulin (S) [Mass/Vol]3.0 g/dLNormalThe [facility] Physician GroupComment on above:Performed By: #### CK, BNP, HS TROP, CBC, CMP #### [place] [address] USAGlucose [Mass/Vol]96 mg/nNKgsgjt49-916Bdq [facility] Physician GroupComment on above:Result Comment: Random Glucose Reference Range is dependent on time and content of last meal. Glucose of more than 200 mg/dL in a nonstressed, ambulatory subject supports the diagnosis of Diabetes Mellitus. ADA recommended reference rangePerformed By: #### CK, BNP, HS TROP, CBC, CMP #### [place] [address] USAPotassium [Moles/Vol]4.1 mmol/LNormal3.5-5.1The [facility] Physician GroupComment on above:Performed By: #### CK, BNP, HS TROP, CBC, CMP #### [place] [address] USAProtein [Mass/Vol]7.2 g/dLNormal6.4-8.9The [facility] Physician GroupComment on above:Performed By: #### CK, BNP, HS TROP, CBC, CMP #### [place] [address] USASodium [Moles/Vol]130 mmol/NWgc823-571Sek [facility] Physician GroupComment on above:Performed By: #### CK, BNP, HS TROP, CBC, CMP #### [place] [address] USAUrea nitrogen [Mass/Vol]17 mg/dLNormal7-25The [facility] Physician GroupComment on above:Performed By: #### CK, BNP, HS TROP, CBC, CMP #### [place] [address] USACreatine Kinaseon 78-96-4413VE [Catalytic activity/Vol]18 U/UNdn43-093Tdi [facility] Physician GroupComment on above:Result Comment: PERFORMED BY: [place] [address] PATHOLOGIST PETROLOGIST HANNAH EMERSON M.D.Performed By: #### CK, BNP, HS TROP, CBC, CMP #### [facility] [address] [place] [address] USACreatine kinase [Enzymatic activity/volume] in Serum or PlasmaOrdered By: Amira Sparks on 66-16-3188IM [Catalytic activity/Vol] Creatine kinase [Enzymatic activity/volume] in Serum or NrmlqpVsf61-265MyotzfspzOhio State Health SystemCreatinine [Mass/volume] in Serum or PlasmaOrdered By: Amira Sparks on 48-87-1240Vowoqzjodm [Mass/Vol]Creatinine [Mass/volume] in Serum or Plasma0.60-1.20[facility] Health SystemDipstick and Microscopicon 12-46-1293Trxexrobwr (U)CloudyCritically abnormalClearThe [facility] Physician GroupComment on above:Order Comment: Name Collection Type:: Clean-Voided MidstreamPerformed By: #### CUU, ADDONUAPLUS, URDS #### [place] [address] USABacteria,UrineNone SeenNormalNone SeenThe [facility] Physician GroupComment on above:Order Comment: Name Collection Type:: Clean- Voided MidstreamPerformed By: #### CUU, ADDONUAPLUS, URDS #### [place] [address] USABilirubin,UrineNegativeNormalNegativeThe [facility] Physician GroupComment on above:Order Comment: Name Collection Type:: Clean- Voided MidstreamPerformed By: #### CUU, ADDONUAPLUS, URDS #### [place] [address] USAColor (U)Light-YellowNormalYellowThe [facility] Physician GroupComment on above:Order Comment: Name Collection Type:: Clean-Voided MidstreamPerformed By: #### CUU, ADDONUAPLUS, URDS #### [place] [address] USAGlucose Ql (U)NormalNormalNormalThe [facility] Physician GroupComment on above:Order Comment: Name Collection Type:: Clean-Voided MidstreamPerformed By: #### CUU, ADDONUAPLUS, URDS #### [place] [address] USAHyaline Casts,UrineNoneNormal0-8The [facility] Physician GroupComment on above:Order Comment: Name Collection Type:: Clean-Voided MidstreamPerformed By: #### CUU, ADDONUAPLUS, URDS #### [place] [address] USAKetones Ql (U)NegativeNormalNegativeSouth [facility] Hospital Physician GroupComment on above:Order Comment: Name Collection Type:: Clean- Voided MidstreamPerformed By: #### CUU, ADDONUAPLUS, URDS #### [place] [address] USALeukocyte esterase Test strip Ql (U)3+HighNegativeThe [facility] Physician GroupComment on above:Order Comment: Name Collection Type:: Clean-Voided MidstreamPerformed By: #### CUU, ADDONUAPLUS, URDS #### [place] [address] USAMucus,UrineRareNormalThe [facility] Physician GroupComment on above:Order Comment: Name Collection Type:: Clean-Voided MidstreamResult Comment: PERFORMED BY: [place] [address] PATHOLOGIST PETROLOGIST HANNAH EMERSON M.D.Performed By: #### CUU, ADDONUAPLUS, URDS #### [place] [address] USANitrite,UrineNegativeNormalNegativeSouth [facility] Physician GroupComment on above:Order Comment: Name Collection Type:: Clean-Voided MidstreamPerformed By: #### CUU, ADDONUAPLUS, URDS #### [place] [address] USAOccult Blood,UrineNegativeNormalNegativeThe [facility] Physician GroupComment on above:Order Comment: Name Collection Type:: Clean- Voided MidstreamResult Comment: PERFORMED BY: [place] [address] PATHOLOGIST PETROLOGIST HANNAH EMERSON M.D.Performed By: #### CUU, ADDONUAPLUS, URDS #### [place] [address] USApH (U)6.5 [pH]Normal5.0-9.0The [facility]ician Group Comment on above:Order Comment: Name Collection Type:: Clean-Voided Midstream Performed By: #### CUU, ADDONUAPLUS, URDS #### [place] [address] USAProtein,UrineNegativeNormalNegativeThe [facility] Physician GroupComment on above:Order Comment: Name Collection Type:: Clean-Voided MidstreamPerformed By: #### CUU, ADDONUAPLUS, URDS #### [place] [address] USARBC,Urine1 [HPF]Normal0-4The [facility]ician Group Comment on above:Order Comment: Name Collection Type:: Clean-Voided Midstream Performed By: #### CUU, ADDONUAPLUS, URDS #### [place] [address] USASpecificy Eden,Urine1.374Owzewm8.001-1.030The [facility] Physician GroupComment on above:Order Comment: Name Collection Type:: Clean- Voided MidstreamPerformed By: #### CUU, ADDONUAPLUS, URDS #### [place] [address] USASquamous Epithelial Cell,Urine1 [HPF]Normal0-2The [facility] Physician GroupComment on above:Order Comment: Name Collection Type:: Clean-Voided MidstreamPerformed By: #### CUU, ADDONUAPLUS, URDS #### [place] [address] USAUrobilinogen,UrineNormalNormalNormalThe [facility] Physician GroupComment on above:Order Comment: Name Collection Type:: Clean- Voided MidstreamPerformed By: #### CUU, ADDONUAPLUS, URDS #### [place] [address] USAWBC,Urine5 [HPF]High0-4The [facility]ician Group Comment on above:Order Comment: Name Collection Type:: Clean-Voided Midstream Performed By: #### CUU, ADDONUAPLUS, URDS #### [place] [address] USADrug Screen,Urineon 52-39-7681Pfmvavctzxc Screen,Urine NegativeNormalNegativeThe [facility] Physician GroupComment on above:Performed By: #### CK, BNP, HS TROP, CBC, CMP #### [place] [address] USABarbiturate Screen,UrineNegativeNormalNegativeThe [facility] Physician GroupComment on above:Performed By: #### CK, BNP, HS TROP, CBC, CMP #### [place] [address] USABenzodiazepines Screen,UrineNegativeNormalNegativeThe [facility] Physician GroupComment on above:Performed By: #### CK, BNP, HS TROP, CBC, CMP #### [place] [address] USACannabinoid Screen,UrineNegativeNormalNegativeThe [facility] Physician GroupComment on above:Result Comment: These are unconfirmed results and should not be used for legal purposes. Drug Cut-Off Concentration: AMPH 1000 ng/mL RONI 200 ng/mL TIAOG 200 ng/mL COCM 300 ng/mL OP 300 ng/mL PCP 25 ng/mL THC 20 ng/mL PERFORMED BY: [place] [address] PATHOLOGIST PETROLOGIST HANNAH EMERSON M.D.Performed By: #### CK, BNP, HS TROP, CBC, CMP #### [place] [address] USACocaine Screen,UrineNegativeNormalNegativeThe [facility] Physician GroupComment on above:Performed By: #### CK, BNP, HS TROP, CBC, CMP #### [facility] [address] [place] [address] USAOpiate Screen,UrineNegativeNormalNegativeThe [facility] Physician GroupComment on above:Performed By: #### CK, BNP, HS TROP, CBC, CMP #### [facility] [address] [place] [address] USAPhencyclidine Screen,UrineNegativeNormalNegativeThe [facility] Physician GroupComment on above:Performed By: #### CK, BNP, HS TROP, CBC, CMP #### [facility] [address] [place] [address] USAEosinophils Auto (Bld) [#/Vol]Ordered By: Amira Sparks on 35-92-3163Xsncfionuxm (Bld) [#/Vol]Automated eosinophil count0.0-0.45 [facility] SystemEosinophils/100 WBC Auto (Bld)Ordered By: Amira Sparks on 61-69-5401Kjfgoncgtay/100 WBC (Bld)Automated eosinophil %. [facility] Health SystemEpithelial cells.squamous [#/area] in Urine sediment by Automated countOrdered By: Amira Sparks on 63-77-9270Dhpoupqapr cells.squamous Auto (Urine sed) [#/Area]Epithelial cells.squamous [#/area] in Urine sediment by Automated count0-2FOhioHealth Berger HospitalErythrocyte Sedimentation Rateon 86-45-9243ORS (Bld) [Velocity]18 mm/hNormalThe [facility] Physician GroupComment on above:Result Comment: PERFORMED BY: [place] [address] PATHOLOGIST PETROLOGIST HANNAH EMERSON M.D.Performed By: #### CK, BNP, HS TROP, CBC, CMP #### [place] [address] USAErythrocyte distribution width Auto (RBC) [Ratio]Ordered By: Amira Sparks on 09-08-4860Aubudxpgoao distribution width (RBC) [Ratio] Erythrocyte distribution width [Ratio] by Automated count11.9-15.3FOhioHealth Berger HospitalErythrocyte sedimentation rate by Photometric method Ordered By: Amira Sparks on 86-02-3219FHF Photometric method (Bld) [Velocity] Erythrocyte sedimentation rate by Photometric methodOhio State Health SystemErythrocytes [#/area] in Urine sediment by Automated countOrdered By: Amira Sparks on 15-33-3457AZT Auto (Urine sed) [#/Area]Erythrocytes [#/area] in Urine sediment by Automated count0OhioHealth Berger HospitalGlobulin Calc (S) [Mass/Vol]Ordered By: Amira Sparks on 09-22-2024 Globulin (S) [Mass/Vol]Serum globulin measurement by calculation (mass/volume) [facility] Health SystemGlucose [Mass/volume] in Serum or PlasmaOrdered By: Amira Sparks on 29-38-3199Nmpnzyy [Mass/Vol]Glucose [Mass/volume] in Serum or Bdsxqg63-052ZbnofjtcnOhio State Health SystemComment on above:ADA recommended reference rangeRandom Glucose Reference Range is dependent on time and content of last meal. Glucose of more than 200 mg/dL in a nonstressed, ambulatory subject supports the diagnosisof Diabetes Mellitus.Glucose [Mass/volume] in Urine by Test stripOrdered By: Amira Sparks on 09-22-2024 Glucose Test strip (U) [Mass/Vol]Glucose [Mass/volume] in Urine by Test strip NormalOhio State Health SystemHematocrit Auto (Bld) [Volume fraction] Ordered By: Amira Sparks on 55-36-8908Bjlnvcgdtc (Bld) [Volume fraction] Hematocrit [Volume Fraction] of Blood by Automated count34.0-46.4FOhioHealth Berger HospitalHemoglobin Test strip Ql (U)Ordered By: Amira Sparks on 60-30-9214Wwvopiynlr Ql (U)Hemoglobin [Presence] in Urine by Test stripNegative [facility] SystemHemoglobin [Mass/volume] in BloodOrdered By: Amira Sparks on 12-09-0717Igxfogcmbw (Bld) [Mass/Vol]Hemoglobin [Mass/volume] in Blood11.8-15.4FOhioHealth Berger HospitalHyaline casts [#/area] in Urine sediment by Automated countOrdered By: Amira Sparks on 89-97-4340Skjpjnr casts Auto (Urine sed) [#/Area]Hyaline casts [#/area] in Urine sediment by Automated count0-8[facility] Health SystemKetones Test strip Ql (U) Ordered By: Amira Spraks on 76-64-3042Yonwsvr Ql (U)Ketones [Presence] in Urine by Test stripNegUniversity Hospitals St. John Medical CenterLeukocyte esterase [Presence] in Urine by Test stripOrdered By: Amira Sparks on 09-22-2024 Leukocyte esterase Test strip Ql (U)Leukocyte esterase [Presence] in Urine by Test stripHighNegUniversity Hospitals St. John Medical CenterLeukocytes [#/area] in Urine sediment by Automated countOrdered By: Amira Sparks on 98-76-8186NRK Auto (Urine sed) [#/Area]Leukocytes [#/area] in Urine sediment by Automated countHigh04FOhioHealth Berger HospitalLeukocytes [#/volume] corrected for nucleated erythrocytes in Blood by Automated counOrdered By: Amira Sparks on 98-82-9430JXE corrected for nucl RBC Auto (Bld) [#/Vol]Leukocytes [#/volume] corrected for nucleated erythrocytes in Blood by Automated coun3.8-11.6FOhioHealth Berger HospitalLymphocytes Auto (Bld) [#/Vol]Ordered By: Amira Sparks on 24-05-9009Qlgwlxbabtd (Bld) [#/Vol]Lymphocytes [#/volume] in Blood by Automated countLow1.00-4.8[facility] SystemLymphocytes/100 WBC Auto (Bld)Ordered By: Amira Sparks on 02-21-2504Znobnfetbfi/100 WBC (Bld) Lymphocytes/100 leukocytes in Blood by Automated count.[facility] Auto (RBC) [Entitic mass]Ordered By: Amira Sparks on 08-72-5949CKY (RBC) [Entitic mass]MCH [Entitic mass] by Automated count24.7-34.3 [facility] SystemHC Auto (RBC) [Mass/Vol]Ordered By: Amira Sparks on 98-55-9308VMFE (RBC) [Mass/Vol]MCHC [Mass/volume] by Automated count 32.0-35.0[facility] SystemMCV Auto (RBC) [Entitic vol]Ordered By: Amira Sparks on 71-81-2193BRC (RBC) [Entitic vol]MCV [Entitic volume] by Automated ipsfs43-499FplpqsckeOhio State Health SystemMonocyte distribution width [Entitic volume] in Blood by AutomatedOrdered By: Amira Sparks on 25-02-8899Pnnqgqze distribution width Auto (Bld) [Entitic vol]Monocyte distribution width [Entitic volume] in Blood by Automated0.00-20.00[facility] SystemMonocytes Auto (Bld) [#/Vol]Ordered By: Amira Sparks on 59-86-6813Emicfnflx (Bld) [#/Vol]Automated blood monocyte count0.0-0.8[facility] SystemMonocytes/100 WBC Auto (Bld)Ordered By: Amira Sparks on 32-47-5556Expinlkdb/100 WBC (Bld)Automated monocyte %.[facility] Health SystemMucus [Presence] in Urine by AutomatedOrdered By: Amira Sparks on 99-21-5472Bhdrf Auto Ql (U)Mucus [Presence] in Urine by AutomatedOhio State Health SystemNeutrophils Auto (Bld) [#/Vol]Ordered By: Amira Sparks on 80-13-7085Ejjxeybvtsw (Bld) [#/Vol]Neutrophils [#/volume] in Blood by Automated count1.8-7.7FOhioHealth Berger HospitalNeutrophils/100 WBC Auto (Bld)Ordered By: Amira Sparks on 51-96-9829Wyrrekzjecn/100 WBC (Bld)Automated neutrophil %.[facility] Health SystemNitrite Test strip Ql (U)Ordered By: Amira Sparks on 69-77-3647Hxsukwg Ql (U)Nitrite [Presence] in Urine by Test stripNegativeOhio State Health SystemNo Panel InformationOrdered By: Amira Sparks on 46-84-6149Vxepdrmae GFR (CKD-EPI)> 60.0 mL/MinOhio State Health SystemPharmacy Creatinine Clearance (Chem46.58[facility] Health SystemNucleated erythrocytes [Presence] in Blood by Automated countOrdered By: Amira Sparks on 68-16-9900Njumjlcox RBC Auto Ql (Bld) Nucleated erythrocytes [Presence] in Blood by Automated count0-0.5[facility] Medical CenterOpiates [Presence] in Urine by Screen methodOrdered By: Amira Sparks on 36-24-2435Olmihtd Screen Ql (U)Opiates [Presence] in Urine by Screen methodNegativeOhio State Health SystemPhencyclidine Screen Ql (U)Ordered By: Amira Sparks on 28-17-6518Qkibiemykvqfh Ql (U)Phencyclidine [Presence] in Urine by Screen methodNegativeOhio State Health System Platelet mean volume Auto (Bld) [Entitic vol]Ordered By: Amira Sparks on 49-15-6245Upelortt mean volume (Bld) [Entitic vol]Platelet mean volume [Entitic volume] in Blood by Automated count6.3-10.7FOhioHealth Berger Hospital Platelets Auto (Bld) [#/Vol]Ordered By: Amira Sparks on 53-83-7676Hajsnhdjr (Bld) [#/Vol]Platelets [#/volume] in Blood by Automated ciyvg071-229RhkaqtebdOhio State Health SystemPotassium [Moles/volume] in Serum or PlasmaOrdered By: Amira Sparks on 48-05-1629Xcfbzkuxy [Moles/Vol]Potassium [Moles/volume] in Serum or Plasma3.5-5.1FOhioHealth Berger HospitalProtein Test strip (U) [Mass/Vol]Ordered By: Amira Sparks on 17-01-8366Uawtgtr (U) [Mass/Vol]Protein [Mass/volume] in Urine by Test stripNegUniversity Hospitals St. John Medical Center Protein [Mass/volume] in Serum or PlasmaOrdered By: Amira Sparks on 09-22-2024 Protein [Mass/Vol]Protein [Mass/volume] in Serum or Plasma6.4-8.9[facility] Health SystemRBC Auto (Bld) [#/Vol]Ordered By: Amira Sparks on 45-89-9422SBU (Bld) [#/Vol]Erythrocytes [#/volume] in Blood by Automated count 3.60-5.00TriHealtherum or plasma albumin/globulin mass ratioOrdered By: Amira Sparks on 32-92-6071Ymspsxe/Globulin [Mass ratio]Serum or plasma albumin/globulin mass ratioTriHealtherum or plasma anion gap determinationOrdered By: Amira Sparks on 09-85-3794Kdofo gap [Moles/Vol]Serum or plasma anion gap determination6.0-15.0TriHealthodium [Moles/volume] in Serum or PlasmaOrdered By: Amira Sparks on 37-73-6465Dbvlcp [Moles/Vol]Sodium [Moles/volume] in Serum or PlasmaLow 136-145TriHealthpecific gravity Test strip (U) [Rel density]Ordered By: Amira Sparks on 51-49-8253Dfmefzxp gravity (U) [Rel density]Specific gravity of Urine by Test strip1.001-1.030[facility] Health SystemThyroid Stimulating Hormoneon 89-98-9251RFJ Qn1.35 m[IU]/LNormal 0.45-5.33[facility] Physician GroupComment on above:Result Comment: PERFORMED BY: [address] [address] PATHOLOGIST PETROLOGIST HANNAH EMERSON M.D.Performed By: #### CK, BNP, HS TROP, CBC, CMP #### [facility] [address] [place] [address] USAThyrotropin [Units/volume] in Serum or PlasmaOrdered By: Amira Sparks on 83-91-2085GME QnThyrotropin [Units/volume] in Serum or Plasma 0.45-5.33[facility] Health SystemUrea nitrogen [Mass/volume] in Serum or PlasmaOrdered By: Amira Sparks on 61-30-6929Lzlx nitrogen [Mass/Vol]Urea nitrogen [Mass/volume] in Serum or Plasma7-25[facility] Urine Cultureon 17-62-6405Dssksuwb identified Cx Nom (U)<9,000 colonies/ml mixed bacterial skin contaminants 2 Days PERFORMED BY: [address] [address] PATHOLOGIST PETROLOGIST HANNAH EMERSON M.D.NormalThe [facility] Physician GroupComment on above: Performed By: #### CK, BNP, HS TROP, CBC, CMP #### [facility] [address] [place] [address] USAUrobilinogen Test strip (U) [Mass/Vol]Ordered By: Amira Sparks on 38-79-3342Nnyjgafysiyx (U) [Mass/Vol]Urobilinogen [Mass/volume] in Urine by Test stripNoMartin Memorial HospitalWBC Auto (Bld) [#/Vol] Ordered By: Amira Sparks on 63-36-6665YXI (Bld) [#/Vol]Leukocytes [#/volume] in Blood by Automated count3.8-11.6FOhioHealth Berger HospitalpH Test strip (U)Ordered By: Amira Sparks on 33-61-9019qK (U)pH of Urine by Test strip 5.0-9.0[facility] Health SystemECG 12 lead ECGon 29-43-6294ZFG 12 lead ECGDUNLAP [place] [place] [address] Electrocardiograph Report Signed Patient: Gela Fenton MR#: [id number] : 1945 Acct:[id number] Age/Sex: 79 / F ADM Date: 08/29/24 Loc: ER Room: Type: [facility] ER Attending Dr: Ordering Provider: Isha Salazar APRN Date of Service: 08/29/2401/16/1349 ECG/ECG 12 lead ECG: Skin/Abscess/Foreign Body Copies to: Test Reason : Blood Pressure : */* mmHG Vent. Rate : 108 BPM Atrial Rate : 108 BPM P-R Int : 138 ms QRS Dur : 74 ms QT Int : 346 ms P-R-T Axes : 69 89 64 degrees QTcB Int : 463 ms Sinus tachycardia with premature supraventricular complexes Confirmed by Brandon Allan DO ([id number]) on 08/29/2024 8:00:27 PM Referred By: Electronically Signed By: Brandon Allan DO Transcribed By: MUS Signed By Brandon Allan DO [address] [place] [address] Physician GroupAlanine aminotransferase [Enzymatic activity/volume] in Serum or PlasmaOrdered By: Anthony Lopez on 78-23-8872STV [Catalytic activity/Vol]Alanine aminotransferase [Enzymatic activity/volume] in Serum or Plasma[address] [place], [place] [address]Albumin [Mass/volume] in Serum or Plasma by Bromocresol green (BCG) dye binding metho Ordered By: Anthony Lopez on 07-92-6357Hsjcmoh BCG dye [Mass/Vol]Albumin [Mass/volume] in Serum or Plasma by Bromocresol green (BCG) dye binding metho 3.5-5.7FOhioHealth Berger HospitalAlkaline phosphatase [Enzymatic activity/volume] in Serum or PlasmaOrdered By: Anthony Lopez on 95-90-8956IGG [Catalytic activity/Vol]Alkaline phosphatase [Enzymatic activity/volume] in Serum or Mvfiik08-057EbinhnmypOhio State Health SystemAspartate aminotransferase [Enzymatic activity/volume] in Serum or PlasmaOrdered By: Anthony Lopez on 38-75-4883YZL [Catalytic activity/Vol]Aspartate aminotransferase [Enzymatic activity/volume] in Serum or Fzuofj57-96JfsaosofwOhio State Health SystemB-Type Natriuretic Peptideon 59-02-2734Syciurxqftx peptide B (Bld) [Mass/Vol]157.0 pg/mLHigh5-100The [facility] Physician GroupComment on above:Result Comment: PERFORMED BY: [place] [address] PATHOLOGIST PETROLOGIST HANNAH EMERSON M.D.Performed By: #### CK, BNP, HS TROP, CBC, CMP #### [place] [address] USABasophils Auto (Bld) [#/Vol]Ordered By: Anthony Lopez on 64-02-3366Llmtmegod (Bld) [#/Vol]Automated basophil count0.0-0.2FOhioHealth Berger HospitalBasophils/100 WBC Auto (Bld)Ordered By: Anthony Lopez on 13-21-3438Tvwlhjtfd/100 WBC (Bld)Automated basophil %.[facility] Health SystemBilirubin.total [Mass/volume] in Serum or PlasmaOrdered By: Anthony Lopez on 41-57-0751Ersevebhz [Mass/Vol]Bilirubin.total [Mass/volume] in Serum or Plasma0.3-1.0[facility] Health SystemCalcium [Mass/volume] in Serum or PlasmaOrdered By: Anthony Lopez on 35-27-1988Alimpyg [Mass/Vol]Calcium [Mass/volume] in Serum or Plasma8.6-10.3FOhioHealth Berger HospitalCarbon dioxide, total [Moles/volume] in Serum or PlasmaOrdered By: Anthony Lopez on 22-24-1663GR9 [Moles/Vol]Carbon dioxide, total [Moles/volume] in Serum or Plasma 21.0-31.0[facility] Health SystemChloride [Moles/volume] in Serum or PlasmaOrdered By: Anthony Lopez on 90-41-2652Bgymfmnt [Moles/Vol]Chloride [Moles/volume] in Serum or Klejch34-503BabmeycojOhio State Health SystemComplete Blood Count Auto Diffon 74-15-7396Mhhmeyrmx (Bld) [#/Vol]0.0 10*3/uLNormal 0.0-0.2[facility] Physician GroupComment on above:Result Comment: PERFORMED BY: [place] [address] PATHOLOGIST PETROLOGIST HANNAH EMERSON M.D.Performed By: #### CK, BNP, HS TROP, CBC, CMP #### [facility] [address] [place] [address] USABasophils/100 WBC (Bld)0.2 %Normal.[facility] Physician GroupComment on above:Performed By: #### CK, BNP, HS TROP, CBC, CMP #### [facility] [address] [place] [address] USAEosinophils (Bld) [#/Vol]0.0 10*3/uLNormal0.0-0.45The [facility] Physician GroupComment on above:Performed By: #### CK, BNP, HS TROP, CBC, CMP #### [facility] [address] [place] [address] USAEosinophils/100 WBC (Bld)0.1 %Normal.[facility] Physician GroupComment on above:Performed By: #### CK, BNP, HS TROP, CBC, CMP #### [facility] [address] [place] [address] USAErythrocyte distribution width (RBC) [Ratio]13.1 %Normal 11.9-15.3[facility] Physician GroupComment on above:Performed By: #### CK, BNP, HS TROP, CBC, CMP #### [place] [address] USAHematocrit (Bld) [Volume fraction]36.9 %Lebjfd91.0-46.4The [facility] Physician GroupComment on above:Performed By: #### CK, BNP, HS TROP, CBC, CMP #### [place] [address] USAHemoglobin (Bld) [Mass/Vol]12.6 g/eSKlvjkt52.8-15.4The [facility] Physician GroupComment on above:Performed By: #### CK, BNP, HS TROP, CBC, CMP #### [place] [address] USALymphocytes (Bld) [#/Vol]0.6 10*3/uLLow1.00-4.8The [facility] Physician GroupComment on above:Performed By: #### CK, BNP, HS TROP, CBC, CMP #### [place] [address] USALymphocytes/100 WBC (Bld)6.6 %Normal.The [facility] Physician GroupComment on above:Performed By: #### CK, BNP, HS TROP, CBC, CMP #### [address]H (RBC) [Entitic mass]31.2 otZlamjw62.7-34.3The [facility] Physician GroupComment on above:Performed By: #### CK, BNP, HS TROP, CBC, CMP #### [place] [address] USAV (RBC) [Entitic vol]91.0 fTQfztdz34-648Uvp [facility] Physician GroupComment on above:Performed By: #### CK, BNP, HS TROP, CBC, CMP #### [place] [address] USAMean Corpuscular HGB Conc34.3 g/xNTtcdgg82.0-35.0The [facility] Physician GroupComment on above:Performed By: #### CK, BNP, HS TROP, CBC, CMP #### [place] [address] USAMonocytes (Bld) [#/Vol]0.5 10*3/uLNormal0.0-0.8The [facility] Physician GroupComment on above:Performed By: #### CK, BNP, HS TROP, CBC, CMP #### [place] [address] USAMonocytes/100 WBC (Bld)15.19 %Normal0.00-20.00The [facility] Physician GroupComment on above:Performed By: #### CK, BNP, HS TROP, CBC, CMP #### [place] [address] USAMonocytes/100 WBC (Bld)5.8 %Normal.[facility] Physician GroupComment on above:Performed By: #### CK, BNP, HS TROP, CBC, CMP #### [place] [address] USANeutrophils (Bld) [#/Vol]7.9 10*3/uLHigh1.8-7.7The [facility] Physician GroupComment on above:Performed By: #### CK, BNP, HS TROP, CBC, CMP #### [place] [address] USANeutrophils/100 WBC (Bld)87.3 %Normal.The [facility] Physician GroupComment on above:Performed By: #### CK, BNP, HS TROP, CBC, CMP #### [place] [address] USANRBC%0.1 /100{WBC}Normal0-0.5The [facility] Physician Group Comment on above:Performed By: #### CK, BNP, HS TROP, CBC, CMP #### [place] [address] USAPlatelet mean volume (Bld) [Entitic vol]7.3 fLNormal 6.3-10.7The [facility] Physician GroupComment on above:Performed By: #### CK, BNP, HS TROP, CBC, CMP #### [facility] [address] [place] [address] USAPlatelets (Bld) [#/Vol]238 10*3/xLCnsaxg210-253Kab [facility] Physician GroupComment on above:Performed By: #### CK, BNP, HS TROP, CBC, CMP #### [place] [address] USARBC (Bld) [#/Vol]4.05 10*6/uLNormal3.60-5.00The [facility] Physician GroupComment on above:Performed By: #### CK, BNP, HS TROP, CBC, CMP #### [place] [address] USAWBC (Bld) [#/Vol]9.1 10*3/uLNormal3.8-11.6The [facility] Physician GroupComment on above:Performed By: #### CK, BNP, HS TROP, CBC, CMP #### [place] [address] USAComprehensive Metabolic Panelon 64-01-7482Qtlzteo [Mass/Vol]4.2 g/dLNormal3.5-5.7The [facility] Physician GroupComment on above: Performed By: #### CK, BNP, HS TROP, CBC, CMP #### [place] [address] USAAlbumin/Globulin [Mass ratio]1.3 {ratio}NormalThe [facility] Physician GroupComment on above:Performed By: #### CK, BNP, HS TROP, CBC, CMP #### [place] [address] USAALP [Catalytic activity/Vol]56 U/VQqzhqj29-418Wnb [facility] Physician GroupComment on above:Performed By: #### CK, BNP, HS TROP, CBC, CMP #### [place] [address] USAALT [Catalytic activity/Vol]16 U/LNormal7-52The [facility] Physician GroupComment on above:Performed By: #### CK, BNP, HS TROP, CBC, CMP #### [facility] [address] [place] [address] USAAnion gap [Moles/Vol]11.8 mmol/LNormal6.0-15.0The [facility] Physician GroupComment on above:Performed By: #### CK, BNP, HS TROP, CBC, CMP #### [facility] [address] [place] [address] USAAST [Catalytic activity/Vol]15 U/RNdimrv66-41Vpv [facility] Physician GroupComment on above:Performed By: #### CK, BNP, HS TROP, CBC, CMP #### [facility] [address] [place] [address] USABilirubin [Mass/Vol]0.6 mg/dLNormal0.3-1.0The [facility] Physician GroupComment on above:Performed By: #### CK, BNP, HS TROP, CBC, CMP #### [facility] [address] [place] [address] USACalcium [Mass/Vol]9.3 mg/dLNormal8.6-10.3The [facility] Physician GroupComment on above:Performed By: #### CK, BNP, HS TROP, CBC, CMP #### [place] [address] USAChloride [Moles/Vol]103 mmol/CAzkfxl40-476Rxf [facility] Physician GroupComment on above:Performed By: #### CK, BNP, HS TROP, CBC, CMP #### [facility] [address] [place] [address] USACO2 [Moles/Vol]23.1 mmol/HMqwqyb90.0-31.0The [facility] Physician GroupComment on above:Performed By: #### CK, BNP, HS TROP, CBC, CMP #### [facility] [address] [place] [address] USACreatinine [Mass/Vol]0.73 mg/dLNormal0.60-1.20The [facility] Physician GroupComment on above:Performed By: #### CK, BNP, HS TROP, CBC, CMP #### [place] [address] USACreatinine Clr Calc Jxyvzyot62.58NormBaptist Medical Center Physician GroupComment on above:Result Comment: PERFORMED BY: [place] [address] PATHOLOGIST PETROLOGIST HANNAH EMERSON M.D.Performed By: #### CK, BNP, HS TROP, CBC, CMP #### [place] [address] USAGFR/1.73 sq M.predicted MDRD (S/P/Bld) [Vol rate/Area] mL/min/{1.73_m2}NormalThe [facility] Physician GroupComment on above:Performed By: #### CK, BNP, HS TROP, CBC, CMP #### [place] [address] USAGlobulin (S) [Mass/Vol]3.3 g/dLNoLifeBrite Community Hospital of Stokes Physician GroupComment on above:Performed By: #### CK, BNP, HS TROP, CBC, CMP #### [place] [address] USAGlucose [Mass/Vol]130 mg/yHDxlp52-545Qya [facility] Physician GroupComment on above:Result Comment: Random Glucose Reference Range is dependent on time and content of last meal. Glucose of more than 200 mg/dL in a nonstressed, ambulatory subject supports the diagnosis of Diabetes Mellitus. ADA recommended reference rangePerformed By: #### CK, BNP, HS TROP, CBC, CMP #### [place] [address] USAPotassium [Moles/Vol]3.9 mmol/LNormal3.5-5.1The [facility] Physician GroupComment on above:Performed By: #### CK, BNP, HS TROP, CBC, CMP #### [place] [address] USAProtein [Mass/Vol]7.5 g/dLNormal6.4-8.9The [facility] Physician GroupComment on above:Performed By: #### CK, BNP, HS TROP, CBC, CMP #### [facility] [address] [place] [address] USASodium [Moles/Vol]134 mmol/PCtu927-574Vhe [facility] Physician GroupComment on above:Performed By: #### CK, BNP, HS TROP, CBC, CMP #### [facility] [address] [place] [address] USAUrea nitrogen [Mass/Vol]28 mg/dLHigh7-25The [facility] Physician GroupComment on above:Performed By: #### CK, BNP, HS TROP, CBC, CMP #### [facility] [address] [place] [address] USACreatine Kinaseon 16-82-0788ZJ [Catalytic activity/Vol]36 U/PKwpjjm71-806Rpg [facility] Physician GroupComment on above:Performed By: #### CK, BNP, HS TROP, CBC, CMP #### [facility] [address] [place] [address] USACreatine kinase [Enzymatic activity/volume] in Serum or PlasmaOrdered By: Anthony Lopez on 55-53-8376YW [Catalytic activity/Vol]Creatine kinase [Enzymatic activity/volume] in Serum or Xlhids17-971PttqxojljOhio State Health SystemCreatinine [Mass/volume] in Serum or PlasmaOrdered By: Anthony Lopez on 66-55-2962Pfwlnphuvd [Mass/Vol]Creatinine [Mass/volume] in Serum or Plasma 0.60-1.20[facility] Health SystemECG 12 lead ECGon 67-38-3016YVD 12 lead ECGDUNLAP MEMORIAL [facility] [place] [address] [place] [address] Electrocardiograph Report Signed Patient: Gela Fenton MR#: [id number] : 1945 Acct:[id number] Age/Sex: 79 / F ADM Date: 08/27/24 Loc: ER Room: Type: [facility] ER Attending Dr: Ordering Provider: Anthony Lopez DO Date of Service: 08/27/2411/17/551 ECG/ECG 12 lead ECG: Shortness of Breath/Dyspnea Copies to: Test Reason : Blood Pressure : 183/89 mmHG Vent. Rate : 74 BPM Atrial Rate : 74 BPM P-R Int : 150 ms QRS Dur : 80 ms QT Int : 390 ms P-R-T Axes : 71 80 71 degrees QTcB Int : 432 ms Normal sinus rhythm Normal ECG No previous ECGs available Confirmed by Anthony Lopez DO ([id number]) on 08/27/2024 2:48:02 PM Referred By: Electronically Signed By: Anthony Lopez DO Transcribed By: MUS Signed By Anthony Lopez DO 5 [address] Physician GroupEosinophils Auto (Bld) [#/Vol]Ordered By: Anthony Lopez on 84-05-4483Jahglhjvtbw (Bld) [#/Vol]Automated eosinophil count 0.0-0.45[facility] Health SystemEosinophils/100 WBC Auto (Bld)Ordered By: Anthony Lopez on 39-39-0536Jidavuuxlft/100 WBC (Bld)Automated eosinophil %. [facility] Health SystemErythrocyte distribution width Auto (RBC) [Ratio]Ordered By: Anthony Lopez on 67-03-7008Awtxyrjtsrl distribution width (RBC) [Ratio]Erythrocyte distribution width [Ratio] by Automated count11.9-15.3 [facility] Health SystemGlobulin Calc (S) [Mass/Vol]Ordered By: Anthony Lopez on 80-42-7874Txrbjsee (S) [Mass/Vol]Serum globulin measurement by calculation (mass/volume)[facility] Health SystemGlucose [Mass/volume] in Serum or PlasmaOrdered By: Anthony Lopez on 99-82-2514Nkjigmh [Mass/Vol]Glucose [Mass/volume] in Serum or LayzmuGqms56-039WdeyvtbbvOhio State Health System Comment on above:ADA recommended reference rangeRandom Glucose Reference Range is dependent on time and content of last meal. Glucose of more than 200 mg/dL in a nonstressed, ambulatory subject supports the diagnosisof Diabetes Mellitus. Hematocrit Auto (Bld) [Volume fraction]Ordered By: Anthony Lopez on 08-27-2024 Hematocrit (Bld) [Volume fraction]Hematocrit [Volume Fraction] of Blood by Automated count34.0-46.4FOhioHealth Berger HospitalHemoglobin [Mass/volume] in BloodOrdered By: Anthony Lopez on 75-97-9100Fapksykzit (Bld) [Mass/Vol]Hemoglobin [Mass/volume] in Blood11.8-15.4FOhioHealth Berger HospitalLeukocytes [#/volume] corrected for nucleated erythrocytes in Blood by Automated counOrdered By: Anthony Lopez on 58-00-6236RBF corrected for nucl RBC Auto (Bld) [#/Vol]Leukocytes [#/volume] corrected for nucleated erythrocytes in Blood by Automated coun3.8-11.6FOhioHealth Berger HospitalLymphocytes Auto (Bld) [#/Vol]Ordered By: Anthony Lopez on 37-29-8169Zcepfrdmtno (Bld) [#/Vol] Lymphocytes [#/volume] in Blood by Automated countLow1.00-4.8[facility] Health SystemLymphocytes/100 WBC Auto (Bld)Ordered By: Anthony Lopez on 51-92-7558Ykgdsyagpzh/100 WBC (Bld)Lymphocytes/100 leukocytes in Blood by Automated count.[facility] Health SystemMCH Auto (RBC) [Entitic mass] Ordered By: Anthony Lopez on 75-02-2100CQM (RBC) [Entitic mass]MCH [Entitic mass] by Automated count24.7-34.3FOhioHealth Berger HospitalMCHC Auto (RBC) [Mass/Vol]Ordered By: Anthony Lopez on 91-29-5283YCOH (RBC) [Mass/Vol]MCHC [Mass/volume] by Automated count32.0-35.0[facility] Health SystemMCV Auto (RBC) [Entitic vol]Ordered By: Anthony Lopez on 47-76-8554PGJ (RBC) [Entitic vol]MCV [Entitic volume] by Automated fugwj68-178MdepadycbOhio State Health SystemMonocyte distribution width [Entitic volume] in Blood by AutomatedOrdered By: Anthony Lopez on 71-81-6058Cgtxipwy distribution width Auto (Bld) [Entitic vol]Monocyte distribution width [Entitic volume] in Blood by Automated0.00-20.00 [facility] SystemMonocytes Auto (Bld) [#/Vol]Ordered By: Anthony Lopez on 36-59-0491Nlebhlrcp (Bld) [#/Vol]Automated blood monocyte count0.0-0.8 [facility] SystemMonocytes/100 WBC Auto (Bld)Ordered By: Anthony Lopez on 54-17-9690Zfsempoew/100 WBC (Bld)Automated monocyte %.[facility] Health SystemNatriuretic peptide B [Mass/Vol]Ordered By: Anthony Lopez on 41-99-4554Anzzdsuzfxo peptide B (Bld) [Mass/Vol]BNP ser/plasHigh5-100 [facility] SystemNeutrophils Auto (Bld) [#/Vol]Ordered By: Anthony Lopez on 23-69-0782Kvpeygtbqso (Bld) [#/Vol]Neutrophils [#/volume] in Blood by Automated countHigh1.8-7.7FOhioHealth Berger HospitalNeutrophils/100 WBC Auto (Bld)Ordered By: Anthony Lopez on 32-44-3535Dpldbptgpjp/100 WBC (Bld) Automated neutrophil %.[facility] SystemNo Panel Information Ordered By: Anthony Lopez on 79-28-6414Zasiztgfz GFR (CKD-EPI)> 60.0 mL/Min [facility] SystemPharmacy Creatinine Clearance (Chem46.58 [facility] SystemNucleated erythrocytes [Presence] in Blood by Automated countOrdered By: Anthony Lopez on 21-49-6330Sfxrwsdlz RBC Auto Ql (Bld) Nucleated erythrocytes [Presence] in Blood by Automated count0-0.5FOhioHealth Berger HospitalPlatelet mean volume Auto (Bld) [Entitic vol]Ordered By: Anthony Lopez on 13-85-5049Ghgjnzic mean volume (Bld) [Entitic vol]Platelet mean volume [Entitic volume] in Blood by Automated count6.3-10.7FOhioHealth Berger HospitalPlatelets Auto (Bld) [#/Vol]Ordered By: Anthony Lopez on 08-27-2024 Platelets (Bld) [#/Vol]Platelets [#/volume] in Blood by Automated igofu566-280 [facility] SystemPotassium [Moles/volume] in Serum or Plasma Ordered By: Anthony Lopez on 90-02-3764Ppasmoipq [Moles/Vol]Potassium [Moles/volume] in Serum or Plasma3.5-5.1FOhioHealth Berger HospitalProtein [Mass/volume] in Serum or PlasmaOrdered By: Anthony Lopez on 77-88-9367Botsrvu [Mass/Vol]Protein [Mass/volume] in Serum or Plasma6.4-8.9[facility] Health SystemRBC Auto (Bld) [#/Vol]Ordered By: Anthony Lopez on 39-90-1473MXT (Bld) [#/Vol]Erythrocytes [#/volume] in Blood by Automated count3.60-5.00 TriHealtherum or plasma albumin/globulin mass ratio Ordered By: Anthony Lopez on 52-06-6668Axrjdsc/Globulin [Mass ratio]Serum or plasma albumin/globulin mass ratioTriHealtherum or plasma anion gap determinationOrdered By: Anthony Lopez on 54-84-7210Ikizq gap [Moles/Vol]Serum or plasma anion gap determination6.0-15.0TriHealthodium [Moles/volume] in Serum or PlasmaOrdered By: Anthony Lopez on 03-64-3192Gfqoxy [Moles/Vol]Sodium [Moles/volume] in Serum or VjlgpjUtt739-696 [facility] SystemTroponin I High Sensitivityon 08-27-2024 Troponin I High Sensitivity3.1 pg/mLNormal0.0-15.0[facility] Comment on above:Result Comment: PERFORMED BY: [place] [address] PATHOLOGIST PETROLOGIST HANNAH EMERSON M.D.Performed By: #### CK, BNP, HS TROP, CBC, CMP #### [place] [address] USATroponin I.cardiac [Mass/volume] in Serum or Plasma by Detection limit <= 0.01 ng/Ordered By: Anthony Lopez on 57-29-4804Oxrlwice I.cardiac DL <= 0.01 ng/mL [Mass/Vol]Troponin I.cardiac [Mass/volume] in Serum or Plasma by Detection limit <= 0.01 ng/0.0-15.0[facility] Health SystemUrea nitrogen [Mass/volume] in Serum or PlasmaOrdered By: Anthony Lopez on 80-27-8167Gcmw nitrogen [Mass/Vol]Urea nitrogen [Mass/volume] in Serum or Plasma High7-25[facility] Health SystemWBC Auto (Bld) [#/Vol]Ordered By: Anthony Lopez on 69-70-3185LNX (Bld) [#/Vol]Leukocytes [#/volume] in Blood by Automated count3.8-11.6FOhioHealth Berger HospitalX-ray reportOrdered By: Lawson Mckeon on 37-59-6591Qzvbv reportDUNLAP MEM[place]IAL [place] [address] XRay Report Signed Patient: Gela Fenton MR#: [id number] : 1945 Acct:[id number] Age/Sex: 79 / F ADM Date: 5 Loc: ER Room: Type: [facility] ER Attending Dr: Copies to: Anthony Lopez DO~ Ordering Provider: Anthony Lopez DO Date of Service: 08/27/24 XR/XR chest 1V portable: Shortness of Breath/Dyspnea Plain film chest Single view HISTORY: History of Covid. Difficulty breathing COMPARISON: None FINDINGS: SUPPORT DEVICES: None POSTSURGICAL CHANGES: None HEART: Within normal limits PULMONARY ULICES: Within normal limits MEDIASTINUM: Unremarkable LUNGS AND PLEURA: No acute lung process, pleural effusion or pneumothorax identified. BONY STRUCTURES: Intact ADDITIONAL FINDINGS None XR/XR chest 1V portable IMPRESSION: No acute process. Impression dictated by: Lawson Mckeon M.D.08/27/2024 9:26 AM Dictation Location: [facility] Transcribed By: [facility] 08/27/24925 Dictated By: Lawson Mckeon DO 08/27/24924 Signed By: 08/27/24925 [facility] SystemXR chest 1V portableon 20-68-2000AJ chest 1V portableDUNLAP MEMORIAL HOSPITAL Main [address] [address] XRay Report Signed Patient: Gela Fenton MR#: [id number] : 1945 Acct:[id number] Age/Sex: 79 / F ADM Date: 08/27/24 Loc: ER Room: Type: [facility] ER Attending Dr: Copies to: Anthony Lopez DO Ordering Provider: Anthony Lopez DO Date of Service: 08/27/24 XR/XR chest 1V portable: Shortness of Breath/Dyspnea Plain film chest Single view HISTORY: History of Covid. Difficulty breathing COMPARISON: None FINDINGS: SUPPORT DEVICES: None POSTSURGICAL CHANGES: None HEART: Within normal limits PULMONARY ULICES: Within normal limits MEDIASTINUM: Unremarkable LUNGS AND PLEURA: No acute lung process, pleural effusion or pneumothorax identified. BONY STRUCTURES: Intact ADDITIONAL FINDINGS None XR/XR chest 1V portable IMPRESSION: No acute process. Impression dictated by: Lawson Mckeon M.D.08/27/2024 9:26 AM Dictation Location: [facility] Transcribed By: [facility] 08/27/24925 Dictated By: Lawson Mckeon DO 08/27/24924 Signed By: 08/27/24 0926[facility] Physician GroupOutside Records Officeon 88-82-2319Luernkl Records Office [id number]#1.00CD:127[facility] HospitalIntraOperative Documentson 29-57-0316GlougLxkautefr Documents [id number]#1.00CD:127Holzer HospitalBlood Bank Slipon 20-88-1269Nvnza Bank Slip [id number]#1.00CD:[address] [place], [place] [address]Coding Summary.on 98-44-2562Losjsh Summary. CD:[id number]+PGhlYWQ+YQ8CYXOaQ36bkMInuL[id number] WP8LUptA1EqxnQk [file] JScg (more content not included)...NormalOn License Of [facility] HospitalConsent for Anesthesiaon 70-06-2581Pxubtib for Anesthesia [id number]#1.00CD:127NoPremier Health Upper Valley Medical CenterDischarge Instructionson 39-01-6049Hfuodomiw Instructions [id number]#1.00CD:127NoPremier Health Upper Valley Medical CenterIntraOperative Documentson 09-68-8381OqucgNtrobemtw Documents [id number]#1.00CD:127NoPremier Health Upper Valley Medical CenterIntraOperative Documents [id number]#1.00CD:127Holzer HospitalOperative Reporton 63-14-6139Ackfhfizb ReportSURGERY DATE: 10/21/2022 PREOPERATIVE DIAGNOSIS: Postoperative pain control requested by patient and surgeon POSTOPERATIVE DIAGNOSIS: Postoperative pain control requested by patient and surgeon OPERATION: Right adductor canal block utilizing ultrasound guidance ANESTHESIA: Local with monitored anesthesia care PROCEDURE: The patient was interviewed and examined. The anesthesia options were discussed including adductor canal block for postoperative analgesia. The discussion included the procedure, risks andbenefits and alternatives to the procedure. The patient's questions were all answered and the patient elected to proceed with the adduction canal block for postoperative pain relief. The patient was placed on the monitors, electrocardiogram, noninvasive blood pressure machine and pulse oximetry. I.V. sedation was then administered with a total of 1 mg of Versed. The mid thigh wasprepped with ChloraPrep and sterilely draped. The anatomy was identified with ultrasound and then under ultrasound guidance, the femoral nerve was identified with a 21 gauge 100 mm needle. After attempted aspiration for blood, a solution of 20 mL of 0.25% ropivacaine was slowly injected with frequent aspirations without signs or symptoms of intravascular injection. The patient tolerated the procedure well. There were signs and symptoms of a block within minutes after completion of the procedure. The patient then proceeded to undergo general anesthesia for the proposed procedure. This block was requested by Dr. Flaherty. LYNN Stanley Dictated: 10/21/2022 [id number] Transcribed: 10/21/2022NoPremier Health Upper Valley Medical CenterComment on above:Result Comment: Electronically Signed By: Zay Bar CRNA\Date and Time Signed: 10/22/2306:55 ESTPreoperative Documentson 05-77-2851Tuglouzxtaer [id number]#1.00CD:127Holzer HospitalPreoperative Documents [id number]#1.00CD:127[facility] HospitalPreoperative [id number]#1.00CD:127 [facility]zer HospitalPreoperative Documents [id number]#1.00CD:127Holzer HospitalABO/Rhon 79-21-5167FCJ/RhPositiveInvalid Interpretation [facility] HospitalComment on above:Performed By: #### [id number], [id number], [id number], [id number] ####[address] [address]YTZ/Rh History Checkon 24-23-9757ORT/Rh History CheckVerified Hx Blood Type [facility]zer HospitalComment on above:Performed By: #### [id number], [id number], [id number], [id number] ####[facility] [address] [employer] [place] [employer], [place] [address]ZVHFjd 99-59-3235RHUX Gel InterpNegativeNoal [facility] HospitalComment on above:Performed By: #### [id number], [id number], [id number], [id number] ####[address] [employer] [place] [employer], [place] [address]KHKYF BANKOrdered By: Magdalena Batres on 60-03-3845DNK/Rh InterpPositiveInvalid Interpretation [facility] SubsectionABSC Gel InterpNegative (10/21/22 9:57 AM)[facility] BB SubsectionBlood Bank ID#on [id number]#[id number] Invalid Interpretation [facility] HospitalComment on above:Performed By: #### [id number], [id number], [id number], [id number] ####[facility] [address] [employer] [place] [employer], [place] [address]Ivrygpm for Treatmenton 10-21-2022 Consent for [id number]#1.00CD:127Normal [facility] HospitalH&P Updateon 10-21-2022H&P Update [id number]#1.00CD:127NormalCleveland Clinic Euclid HospitalInpatient Patient Summaryon 89-42-9911Jkzhkjgun Patient Summary [facility] [address], [place] [address] [facility] Clinical Discharge Instructions PERSON INFORMATION Name: GELA FENTON PHYSICIANS Admitting Physician: Amira Flaherty DO Attending Physician: Amira Flaherty DO PCP: JASMINE COTE, SHAWN Pinedo Discharge Diagnosis: Localized osteoarthritis of right knee Comment: PATIENT EDUCATION INFORMATION Instructions: Post Op Patient Instructions - FT (CUSTOM); Knee Cryocuff Patient Instructions - FT (CUSTOM) Medication Leaflets: Follow up: With: Address: When: Amira Flaherty [address] [place] [address] [facility] (1) 11/19/2022 1:30 PM Comments: Keep scheduled appointment Type Location Start [facility] FT [facility] [place] [facility] 10/21/2022 12:30 PM 10/21/2022 1:45 PM Confirmed MEDICATION LIST New Medications [id number], [address], [place] [id number], [phone] acetaminophen-oxycodone (Percocet 5 mg-325 mg oral tablet) Take 1-2 po q 4 hours prn knee surgery pain. Refills: 0. aspirin (aspirin 325 mg Tab) 1 Tablets By Mouth every day for 30 Days. Start the day after surgery.Refills: 0. cephalexin (Keflex 500 mg Cap) 1 Capsules By Mouth 4 times a day for 5 Days. Start the day after surgery. Refills: 0. docusate (Colace 100 mg Cap) 1 Capsules By Mouth 2 times a day. Refills: 0. Medications to Continue with No Changes Other Medications ascorbic acid (Vitamin C 100 mg oral tablet, chewable) 1 tab By Mouth every day. calcium-vitamin D (Citracal Regular 250 mg-200 intl units oral tablet) 1 Tablets By Mouth 3 times aday. cholecalciferol (Vitamin D3 5000 intl units (125 mcg) oral tab) 1 Tablets By Mouth every day. docusate (Dulcolax Stool Softener 100 mg oral capsule) 1 Capsules By Mouth every day as needed for constipation. magnesium oxide (magnesium oxide 500 mg oral capsule) 1 Capsules By Mouth every day. menaquinone (Vitamin K2 100 mcg oral tablet) 1 Tablets By Mouth every day. multivitamin (Super B-50 oral capsule) 1 Capsules By Mouth every day. multivitamin with minerals (Celebrate Multivitamin oral capsule) 1 tab By Mouth every day. Non-Formulary Medication (Agilease) 1 tab By Mouth 2 times a day., health Non-Formulary Medication (BLM) 1 tab By Mouth every day., health Non-Formulary Medication (life 9) 1 tab By Mouth every day., health Non-Formulary Medication (Strontium) 1 tab By Mouth every day., health omega-3 polyunsaturated fatty acids (Nature's Bounty Red Krill Oil 500 mg oral capsule) 1 Capsules By Mouth every day. psyllium (Metamucil 400 mg oral capsule) 1 Capsules By Mouth every day. zinc acetate (zinc acetate 25 mg oral capsule) 1 Capsules By Mouth every day. on an empty stomach 1hour before or 2 hours after eating. Comment:[facility] HospitalMain OR Intraoperative Recordon 21-46-9843Gtxs OR Intraoperative RecordIntraOp Document Type FT Summary Primary Physician: Amira Flaherty DO Finalized Date/Time: 10/31/22 11:01:54 Pt. Name: GELA FENTON/Sex: 1945 Female Med Rec #: [id number] Physician: Amira Flaherty DO Financial #: [id number] Pt. Type: A Room/Bed: [facility] Admit/Disch: 10/21/22 09:22:45 - 10/21/22 18:20:00 Institution: Case Times FT Entry 1 Patient Times In Room 10/21/22 12:08:00 Out Room 10/21/22 13:22:00 Procedure Times Start 10/21/22 12:29:00 Stop 10/21/22 13:09:00 Anesthesia Times Start 10/21/22 12:08:00 Stop 10/21/22 13:22:00 Block Timeout w10/21/22 11:16:00 Anesthesia Last Modified By: Codie Landaverde CST 10/31/22 11:01:35 General Comments: PREOP BLOCK BY Elisabeth BAR PUBLIC HEALTH EDUCATOR WITH Grayson LITTLEJOHN RN ASSISTING. PATIENT TOLERATED WELL WITH HEART RATE AT 88, AND SPO2 AT 97% ON ROOM AIR. Nico BRAMBILA RN. 10/22/22 Chart opened to review and send charges LRoth CSFA Case Attendance FT Entry 1 Entry 2 Entry 3 Case Attendee Zay Bar CRNA, DO, Michael T Wilhelm CST, Benjamin Role Performed PUBLIC HEALTH EDUCATOR Surgeon - Primary CITY DISPATCHER/SA Time In 10/21/22 12:08:00 10/21/22 12:08:00 10/21/22 12:08:00 Time Out 10/21/22 13:22:00 10/21/22 13:22:00 10/21/22 13:22:00 Procedure KNEE TOTAL KNEE TOTAL KNEE TOTAL ARTHROPLASTY(Right) ARTHROPLASTY(Right) ARTHROPLASTY(Right) Comments Last Modified By: Codie Landaverde CST, Terry T Sweene, Terry T 10/22/22 10:29:46 10/21/22 13:28:04 10/21/22 13:28:04 Entry 4 Entry 5 Entry 6 Case Attendee Juan Brambila Jessica D Troike, Kendall R Role Performed Credit Interviewer - Primary Scrub - Primary Scrub - Primary Time In 10/21/22 12:08:00 10/21/22 12:08:00 10/21/22 12:08:00 Time Out 10/21/22 13:22:00 10/21/22 13:22:00 10/21/22 13:22:00 Procedure KNEE TOTAL KNEE TOTAL KNEE TOTAL ARTHROPLASTY(Right) ARTHROPLASTY(Right) ARTHROPLASTY(Right) Comments IN ORIENTATION PRECEPTOR Last Modified By: Juan Brambila Terry T Sweene, Terry T 10/21/22 13:28:04 10/21/22 13:28:04 10/21/22 13:28:04 Entry 7 Entry 8 Case Attendee Bartolo NELSON, Nik Moreno PA-C Role Performed Staff - Other PA/SEDIMENT REMEDIATION CONSULTANT Time In 10/21/22 12:08:00 10/21/22 12:08:00 Time Out 10/21/22 13:22:00 10/21/22 12:45:00 Procedure KNEE TOTAL KNEE TOTAL ARTHROPLASTY(Right) ARTHROPLASTY(Right) Comments Last Modified By: Juan Brambila Terry T 10/21/22 13:28:04 10/21/22 13:28:04 General Comments: GENA BEE - Traackr REP HERE FOR CASE. Nico BRAMBILA RN. Perioperative Protocols FT Pre-Care Text: Implements protective measures prior to operative or invasive procedure, confirms identity before the operative or invasive procedure, verifies operative procedure, surgical site, and laterality Entry 1 Procedure(s) KNEE TOTAL Patient Identity Birthday, Blood Band, ARTHROPLASTY(Right) Verified (select at ID Band Check, Patient least 2): Participation Consents / H and P Anesthesia Consent, Operative Site Present Verified HandP, Surgery/Procedure Marking Verified Consent, Transfusion Consent Surgical Site Yes Laterality Verified Yes Verified Procedure Verified Yes Correct Patient Yes Position Verified Availability Equipment, Implant, Prep Dry n/a Verified (If Medication Applicable) PreOp Antibiotic Yes Time Out Zay Bar CRNA, Given Participants Cooper AARON, Harjinder Mason CST, Kosta Gold Terry T, Mely Snider, Jeff Srivastava Krupp RN, Nikhil Judd PA-C, Todd D Time Out Complete 10/21/22 12:29:00 Outcomes Met? Yes Last Modified By: Juan Brambila 10/21/22 12:38:43 Post-Care Text: The patient is free from signs and symptoms of injury caused by extraneous objects Allergy Information FT Pre-Care Text: Verifies allergies Entry 1 Allergies Reviewed? Yes Allergies Reviewed Self/Patient With Outcomes Met? Yes Last Modified By: Juan Brambila 10/21/22 11:58:25 Post-Care Text: The patient received appropriate medication(s) safely administered during the perioperative period Surgical Procedures FT Entry 1 Procedure Description Procedure KNEE TOTAL ARTHROPLASTY Modifiers Right Surgeon Description RIGHT TOTAL KNEE ARTHROPLASTY Primary Procedure Yes Primary Surgeon Amira Flaherty DO Start 10/21/22 12:29:00 Stop 10/21/22 13:09:00 Anesthesia Type General Surgical Service Orthopedics Wound Class 1 - Clean Last Modified By: Juan Brambila 10/21/22 13:28:08 General Case Data FT Pre-Care Text: Classifies surgical wound, implements aseptic technique, initiates traffic control Entry 1 Case Information OR OR 7 FT Case Level Level 6 Wound Class 1 - Clean Specialty Orthopedics ASA Class 2 Preop Diagnosis RIGHT KNEE Postop Same As Preop Yes OSTEOARTHRITIS Postop Diagnosis RIGHT KNEE Outcomes Met? Yes OSTEOARTHRITIS Last Modified By: Juan Brambila 10/21/22 13:30:17 Post-Care Text: The patient is free from signs and symptoms of infection Sk (more content not included)...Invalid Interpretation [id number] 21[facility] I Recordon [id number] OR PACU I RecordPACU Phase I Document Type FT Summary Primary Physician: Amira Flaherty DO Finalized Date/Time: 10/21/22 14:45:13 Pt. Name: GELA FENTON/Sex: 1945 Female Med Rec #: [id number] Physician: Amira Flaherty DO Financial #: [id number] Pt. Type: A Room/Bed: [facility]/ Admit/Disch: 10/21/22 09:22:45 - Institution: Case Times PACU I FT Pre-Care Text: Identifies barriers to communication and implements measures to provide psychological support Develops individualized plan of care, and ensures continuity of care Maintains patient's dignity and privacy, and maintains patient confidentiality Identifies and reports philosophical, cultural, and spiritual beliefs and values Identifies individual values and wishes concerning care Implements aseptic technique, and administers prescribed antibiotic therapy and immunizing agents as ordered Evaluates postoperative tissue perfusion Implements thermoregulation measures, and monitors body temperature Evaluates postoperative respiratory status Evaluates postoperative cardiac status Evaluates postoperative neurological status Assesses pain control, collaborated in initiating patient-controlled analgesia and implements alternative methods of pain control Verifies allergies, administers prescribed medications and solutions, evaluates response to medications Entry 1 In PACU I 10/21/22 13:23:00 Discharge from PACU 10/21/22 14:18:00 I Outcomes Met? Yes Last Modified By: Shannan Durbin RN 10/21/22 14:45:03 Post-Care Text: The patient demonstrates knowledge of the expected response to the operative or invasive procedure The patient's care is consistent with the individualized perioperative plan of care The patient's rightto privacy is maintained The patient's value system, lifestyle, ethnicity, and culture are considered, respected, and incorporated into the perioperative plan of care The patient participates in decisions affecting his or her perioperative plan of care The patient is free from signs and symptoms of infection The patient has wound/tissue perfusion consistent with or improved from baseline levels established preoperatively The patient is at or returning to normothermia at the conclusion of the immediate postoperative period The patient's respiratory function is consistent with or improved from baseline levels established preoperativelyThe patient's cardiovascular status is consistent with or improved from baseline levels established preoperatively The patient's cardiovascular status is consistent with or improved from baseline levels established preoperatively The patient demonstrates and/or reports adequate pain control throughout the perioperative period The patient received appropriate medication(s), safely administered during the perioperativeperiod Acuity Level PACU I FT Entry 1 Start Time 10/21/22 13:23:00 Stop Time 10/21/22 14:18:00 Acuity Level Acuity Level I Last Modified By: Shannan Durbin RN 10/21/22 14:45:12 Finalized By: Shannan Durbin RN Document Signatures Signed By: Shannan Durbin RN 10/21/22 14:45[facility]Main OR PACU II Recordon [id number] OR PACU II RecordPACU Phase II Document Type FT Summary Primary Physician: Amira Flaherty DO Finalized Date/Time: 10/21/22 18:24:46 Pt. Name: GELA FENTON/Sex: 1945 Female Med Rec #: [id number] Physician: Amira Flaherty DO Financial #: [id number] Pt. Type: A Room/Bed: [facility] Admit/Disch: 10/21/22 09:22:45 - Institution: Case Times PACU II FT Pre-Care Text: Identifies barriers to communication and implements measures to provide psychological support and determines knowledge level Develops individualized plan of care, and ensures continuity of care Maintains patient's dignity and privacy, and maintains patient confidentiality Identifies and reports philosophical, cultural, and spiritual beliefs and values Identifies individual values and wishes concerning care administers prescribed antibiotic therapy and immunizing agents as ordered, Evaluates postoperative tissue perfusion Implements thermoregulation measures, and monitors body temperature Evaluates postoperative respiratory statusEvaluates postoperative cardiac status Evaluates postoperative neurological status Assesses pain control, collaborated in initiating patient-controlled analgesia and implements alternative methods of pain control Verifies allergies, administers prescribed medications and solutions, evaluates response to medications Entry 1 In PACU II 10/21/22 14:20:00 Discharge from PACU 10/21/22 18:20:00 II Outcomes Met? Yes Last Modified By: Shira Singh 10/21/22 18:24:45 Post-Care Text: The patient demonstrates knowledge of the expected response to the operative or invasive procedure The patient's care is consistent with the individualized perioperative plan of care The patient's rightto privacy is maintained The patient's value system, lifestyle, ethnicity, and culture are considered, respected, and incorporated into the perioperative plan of care The patient participates in decisions affecting his or her perioperative plan of care. The patient is free from signs and symptoms of infection The patient has wound/tissue perfusion consistent with or improved from baseline levels established preoperatively The patient is at or returning to normothermia at the conclusion of the immediate postoperative period The patient's respiratory function is consistent with or improved from baseline levels established preoperativelyThe patient's cardiovascular status is consistent with or improved from baseline levels established preoperatively The patient's neurological status is consistent with or improved from baseline levels established preoperatively The patient demonstrates and/or reports adequate pain control throughout the perioperative period The patient received appropriate medication(s), safely administered during the perioperativeperiod Finalized By: Shira Singh Document Signatures Signed By: Shira Singh 10/21/22 18:24NormalCleveland Clinic Euclid HospitalMonitor Record on 69-48-5461Bcfldif [id number]#1.00CD:127 PaulieCleveland Clinic Euclid HospitalOperative Reporton [id number] Report SURGERY DATE: 10/21/2022 STAPLE CUTTER: Nik Tejeda PA-C PREOPERATIVE DIAGNOSIS: Right knee end-stage osteoarthritis with antalgic gait with varus deformity, failure of conservative injection care POSTOPERATIVE DIAGNOSIS: 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 She had severe grade 4 findings on the x- ray. The pros, cons, risks, benefits, reasonable expectations of above procedure were discussed. Consent form signed and charted. The site is marked preoperatively. All questions were answered preoperatively. Antibiotics provided weight-basedper protocol. Physician housekeeper/laundry assistant Nik Tejeda was integral in the case improving time, flow and efficiency diminishing Gela's risk to anesthesia and operative time. He was involved with positioning,intraoperative prep and drape, exposure, implantation. The pros, cons, risks, benefits reviewed. Consent form signed and witnessed. Antibiotics are weight-based. PROCEDURE: Gela is taken to the Operating Room and placed in supine position. Anesthesia provided. A well-padded tourniquet was placed on the right upper thigh. The leg was prepped and draped in sterile fashion. A time-out procedure occurred consistent with the consent form, History and Physical,preoperative marked site. Landmarks were identified. Once the leg was exsanguinated, tourniquet wasinflated to 300 mmHg. A time-out procedure is confirmed consistent with the consent form, History and Physical, preoperative marked site. Landmarks were identified. Midline incision was made. Of note, she does have fairly thin skin as well as subcutaneous tissue. Medial parapatellar arthrotomy was performed and moderate sized sterile appearing effusion was evacuated. There was cryl-bm-lpjh disease throughout all three compartments but in particular the medial patellofemoral joint with exposed grade 4 bone. The patella was appropriately cut and retracted. The Irrisept antibiotic solution was allowed to soak per protocol. The knee was flexed. Intramedullary drill and jig device was placed in the femur. A 5 degree valgus cut taking off 11 mm was performed. This was sized at a DePuy Attune size 5 PS. Anterior, posterior chamfer cuts as well as posterior stabilized box cut was performed. Anterior cruciate ligament and posterior cruciate ligament were resected. Collateral ligaments were protected and balanced. Meniscal remnants removed. Intramedullary drill and jig device was placed to the tibia. The tibia was cut. Gaps were symmetrical. Posterior gutters were cleaned and free. Tibia was prepared for a #4 fixed tray. Trial components were placed with full extension, excellent flexion.Patellofemoral tracking and height were appropriate with a 32 mm trial. All trial components were removed. Copious irrigation was performed with a pulse lavage fan installer. Irrisept antibiotic solutionas well as the Exparel was injected and applied per protocol. The Kai Simplex cement was mixed.All components were cemented in place and allowed to harden for 16 minutes. All cement osteophytes were removed. It was taken through an arc of motion and deemed stable. After copious irrigation, 2 gm of tranexamic acid was placed subfascially. Fascial layer was closed with #2 Quill suture in a running fashion, 2-0 Quill suture closed the subcutaneous tissues and zaire were applied. A 10-inch Mepilex dressing with soft roll wrap was provided. The tourniquet was deflated. The patient was awaken from anesthesia and transferred to the Recovery Room in stable and satisfactory condition. CASE: Clean and elective COUNTS: Sponge and needle count correct SPECIMEN: Bone CONDITION: The patient's condition satisfactory Bella Savage Dictated: 10/21/2022 [id number] Transcribed: 10/21/2022NoPremier Health Upper Valley Medical CenterComment on above:Result Comment: Electronically Signed By: Amira Flaherty DO\.br\Date and Time Signed: 10/21/22 14:59 ESTOutpatient Surgery Discharge Instructionon 10-21-2022 Outpatient Surgery Discharge Instruction [address] [address] Patient Discharge Instructions PERSON INFORMATION Name: GELA FENTON Date of : 1945 Current Date: 10/21/2022 08:42:47 PHYSICIANS Admitting Physician: Amira Flaherty DO Discharge Diagnosis: Localized osteoarthritis of right knee GELA FENTON has been given the following list of follow-up instructions, prescriptions, and patient education materials: PATIENT FOLLOW-UP INFORMATION Diet: Regular, Drink liquids and eat a light meal Discharge Activity: Ambulate as tolerated, Arrange for a responsible adult supervision for 24 hours, Expect mild pain, Expect minimal amount of drainage and/or bleeding, Do not lift more than 5 lbs Discharge Restrictions: No driving, Do not operate machinery or tools, Do not make important decisions for 24 hours, Do not drink alcoholic beverages for 24 hours Call Your Doctor For: Persistent or heavy bleeding, Temperature above 101.5 degrees, Redness, swelling, or pus at operative site, Severe pain at the operative site, Persistent vomiting Wound Care Instructions: Remove dressing as instructed Remove Your Dressing In 10 Days IF UNABLE TO CONTACT YOUR PHYSICIAN AND YOU FEEL IT IS AN EMERGENCY, GO TO THE NEAREST EMERGENCY ROOM OR CALL 911 I, GELA FENTON, have received the attached patient education materials/instructions and have verbalized understanding: May we do a follow up call? Yes No I was present when discharge instructions were given Patient Signature Date Clinican/Nurse Signature Date Follow up: With: Address: When: Amira Flaherty [address] [place] [address] Business (1) 11/19/2022 1:30 PM Comments: Keep scheduled appointment Type Location Start [facility] Surgery [facility] 10/21/2022 12:30 PM 10/21/2022 1:45 PM Confirmed Pharmacy Information: You may receive a survey from Josefina Parham asking you to rate your care experience. Your feedback is important and will help us understand what we do well and how we can improve the quality of care we provide to you, your loved ones and our community. It?s an honor to serve you. Thank you for choosing [facility] HERE ARE THE MEDICATION CHANGES THAT OCCURRED DURING YOUR HOSPITAL STAY New Medications [id number], [address], [place] [id number], [phone] acetaminophen-oxycodone (Percocet 5 mg-325 mg oral tablet) Take 1-2 po q 4 hours prn knee surgery pain. Refills: 0. aspirin (aspirin 325 mg Tab) 1 Tablets By Mouth every day for 30 Days. Start the day after surgery.Refills: 0. cephalexin (Keflex 500 mg Cap) 1 Capsules By Mouth 4 times a day for 5 Days. Start the day after surgery. Refills: 0. docusate (Colace 100 mg Cap) 1 Capsules By Mouth 2 times a day. Refills: 0. Medications to Continue with No Changes Other Medications ascorbic acid (Vitamin C 100 mg oral tablet, chewable) 1 tab By Mouth every day. calcium-vitamin D (Citracal Regular 250 mg-200 intl units oral tablet) 1 Tablets By Mouth 3 times aday. cholecalciferol (Vitamin D3 5000 intl units (125 mcg) oral tab) 1 Tablets By Mouth every day. docusate (Dulcolax Stool Softener 100 mg oral capsule) 1 Capsules By Mouth every day as needed for constipation. magnesium oxide (magnesium oxide 500 mg oral capsule) 1 Capsules By Mouth every day. menaquinone (Vitamin K2 100 mcg oral tablet) 1 Tablets By Mouth every day. multivitamin (Super B-50 oral capsule) 1 Capsules By Mouth every day. multivitamin with minerals (Celebrate Multivitamin oral capsule) 1 tab By Mouth every day. Non-Formulary Medication (Agilease) 1 tab By Mouth 2 times a day., health Non-Formulary Medication (BLM) 1 tab By Mouth every day., health Non-Formulary Medication (life 9) 1 tab By Mouth every day., health Non-Formulary Medication (Strontium) 1 tab By Mouth every day., health omega-3 polyunsaturated fatty acids (Nature's Bounty Red Krill Oil 500 mg oral capsule) 1 Capsules By Mouth every day. psyllium (Metamucil 400 mg oral capsule) 1 Capsules By Mouth every day. zinc acetate (zinc acetate 25 mg oral capsule) 1 Capsules By Mouth every day. on an empty stomach 1hour before or 2 hours after eating. PATIENT EDUCATION INFORMATION Instructions: Medication Leaflets:[facility] HospitalPatient Education - Texton [phone] Education - Text [facility] HospitalProgress Note-Physicianon [id number] Note-PhysicianPatient: GELA FENTON Age: 77 years Sex: Female : 1945 Associated Diagnoses: None Author: Juan Jose Lucero Jr., DO Postoperative Information Postoperative disposition: Postoperative disposition: Home. Optimetrix number: Optimetrix number [id number]. Anesthetic utilized: General. Physical Examination Vital Signs 10/21/2022 14:24 EST Heart Rate Monitored 89 bpm SpO2 100 % 10/21/2022 14:23 EST Systolic Blood Pressure 151 mmHg HI Diastolic Blood Pressure 77 mmHg Mean Arterial Pressure, Monitered 102 mmHg 10/21/2022 14:23 EST Temperature Oral 36.5 DegC 10/21/2022 14:12 EST SpO2 88 % LOW 10/21/2022 14:08 EST Heart Rate Monitored 81 bpm Respiratory Rate Monitored 10 br/min Systolic Blood Pressure 155 mmHg HI Diastolic Blood Pressure 73 mmHg Blood Pressure Location Right arm Mean Arterial Pressure, Cuff 100 mmHg SpO2 100 % 10/21/2022 13:53 EST Heart Rate Monitored 82 bpm Respiratory Rate Monitored 12 br/min Systolic Blood Pressure 144 mmHg HI Diastolic Blood Pressure 73 mmHg Blood Pressure Location Right arm Mean Arterial Pressure, Cuff 97 mmHg SpO2 98 % 10/21/2022 13:43 EST Heart Rate Monitored 92 bpm Respiratory Rate Monitored 11 br/min Systolic Blood Pressure 146 mmHg HI Diastolic Blood Pressure 76 mmHg Blood Pressure Location Right arm Mean Arterial Pressure, Cuff 99 mmHg SpO2 99 % 10/21/2022 13:41 EST SpO2 88 % LOW 10/21/2022 13:38 EST Heart Rate Monitored 91 bpm Respiratory Rate Monitored 11 br/min Systolic Blood Pressure 135 mmHg Diastolic Blood Pressure 73 mmHg Blood Pressure Location Right arm Mean Arterial Pressure, Cuff 94 mmHg SpO2 94 % 10/21/2022 13:33 EST Heart Rate Monitored 78 bpm Respiratory Rate Monitored 17 br/min Systolic Blood Pressure 126 mmHg Diastolic Blood Pressure 71 mmHg Blood Pressure Location Right arm Mean Arterial Pressure, Cuff 89 mmHg SpO2 98 % 10/21/2022 13:28 EST Heart Rate Monitored 81 bpm Respiratory Rate Monitored 16 br/min Systolic Blood Pressure 115 mmHg Diastolic Blood Pressure 71 mmHg Blood Pressure Location Right arm Mean Arterial Pressure, Cuff 86 mmHg SpO2 100 % 10/21/2022 13:23 EST Temperature Axillary 36.3 DegC Heart Rate Monitored 66 bpm Respiratory Rate Monitored 19 br/min Systolic Blood Pressure 92 mmHg Diastolic Blood Pressure 52 mmHg LOW Blood Pressure Location Right arm Mean Arterial Pressure, Cuff 65 mmHg SpO2 99 % Pain Assessment: Controlled, Pain assessment from flowsheet : Results 10/21/2022 14:23 EST Pain Symptoms Self Report No, able to self report Preliminary Pain Scale 0 Patient Preferred Pain Tool Numeric rating Numeric Pain Scale 0 = No pain Numeric Pain Score 0 10/21/2022 14:08 EST Pain Symptoms Self Report No, able to self report 10/21/2022 13:43 EST Primary Pain Location Knee Primary Pain Laterality Right Patient Preferred Pain Tool Verbal descriptor scale Verbal Descriptor Pain Scale Mild pain FLACC Face No particular expression or smile FLACC Legs Normal position or relaxed FLACC Activity Lying quietly, normal position, moves easily FLACC Cry Moans or whimpers, occasional complaint FLACC Consolability Content, relaxed FLACC Score 1 10/21/2022 13:28 EST Pain Symptoms Self Report No, able to self report 10/21/2022 13:23 EST FLACC Face No particular expression or smile FLACC Legs Normal position or relaxed FLACC Activity Lying quietly, normal position, moves easily FLACC Cry No cry, awake or asleep FLACC Consolability Content, relaxed FLACC Score 0 . General: Awake, Alert, Appropriate. Respiratory: Adequate air exchange, Non-labored. Cardiovascular: Stable, Normal peripheral perfusion. Neurological: Neurologic exam at baseline. No changes.. Assessment Anesthetic outcome No anesthetic complications noted. No nausea/vomiting. Review / Management Condition: Stable. Plan Transfer/Discharge: Transfer/Discharge Discharge when meets criteria ( From PACU to Ambulatory Surgery Unit, and To home ).[facility] Comment on above:Result Comment: Electronically Signed By: Juan Jose Lucero Jr., DO\.br\Date and Time Signed: 10/21/22 14:41 ESTProgress Note-PhysicianPatient: GELA FENTON Age: 77 years Sex: Female : 1945 Associated Diagnoses: None Author: Juan Jose Lucero Jr., DO Preoperative Information Anesthesia Preop Info NPO since midnight Anesthesia history: Patient history: No prior anesthetic problems. Informed consent: Signed by patient. Re-evaluation prior to induction: Initial evaluation reviewed: No significant change. Health Status Allergies: Allergic Reactions (Selected) No Known Allergies, Allergies (1) Active Reaction No Known Allergies None Documented Current medications: (Selected) Inpatient Medications Ordered Arixtra 2.5 mg/0.5 mL Injection: 2.5 mg = 0.5 mL, Injection, SubCutaneous, qAM for 10 day(s), Stop date 11/01/22 6:29:00 EST, Routine, Start date 10/22/22 6:30:00 EST, Start AM postop day 1, 236:30:00 EST Colace 100 mg Cap: 100 mg = 1 cap(s), Cap, Oral, BID, Routine, Start date 10/21/22 21:00:00 EST, 10/21/22 12:00:00 EST Dulcolax 5 mg Tab-EC: 10 mg = 2 tab(s), Tab-EC, Oral, Daily PRN Constipation, Routine, Start date 10/23/22 12:00:00 EST, 10/23/22 12:00:00 EST HYDROmorphone 1 mg/mL injectable solution: 0.4 mg = 0.4 mL, Injection, IV Push, q4min PRN Pain for 5 dose(s), Stop date Limited # of times, Routine, Start date 10/21/22 10:26:00 EST, 10/21/22 10:26:00 EST HYDROmorphone 1 mg/mL injectable solution: 1 mg = 1 mL, Injection, IV Push, q2hr PRN Pain 8-10 for 5 day(s), Stop date 10/26/22 11:59:00 EST, Routine, Start date 10/21/22 12:00:00 EST, 10/21/22 12:00:00 EST Lactated Ringers IV Rachael 1000 mL 1,000 mL: 1,000 mL, IV, 100 mL/hr, Routine, Start date 10/21/22 10:26:00 EST, 10 hour(s), Total volume (mL): 1,000, 54.6 kg, 1.54, m2 Lactated Ringers IV Rachael 1000 mL 1,000 mL: 1,000 mL, IV, 150 mL/hr, Routine, Start date 10/21/22 9:30:00 EST, 6.7 hour(s), Total volume (mL): 1,000, 54.6 kg, 1.54, m2 Lactated Ringers IV Rachael 1000 mL 1,000 mL: 1,000 mL, IV, 80 mL/hr, Routine, Start date 10/21/22 12:00:00 EST, 12.5 hour(s), Total volume (mL): 1,000, 54.6 kg, 1.54, m2 Milk of Magnesia 8% Susp-Oral: 30 mL, Susp-Oral, Oral, BID PRN Constipation, Routine, Start date 10/21/22 12:00:00 EST Nozin 62% Bottle - POSTOP: 6 drop(s), Soln-Nasal, Nasal, BID, Routine, Start date 10/21/22 21:00:00EST Pantoprazole [address] Tab: 40 mg = 1 tab(s), Tab-DR, Oral, Daily, Routine, Start date 10/22/22 9:00:00 EST, 10/21/22 12:00:00 EST Phenergan 25 mg/mL Injection: 6.25 mg = 0.25 mL, Injection, IV Push, q2min PRN Other (see comment) for 2 dose(s), Stop date Limited # of times, Routine, Start date 10/21/22 10:26:00 EST, 10/21/22 10:26:00 EST Zofran 4 mg/2 mL Injection: 4 mg = 2 mL, Injection, IV Push, q6hr PRN Nausea/Vomiting, Routine, Start date 10/21/22 12:00:00 EST, 10/21/22 12:00:00 EST acetaminophen-oxycodone 325 mg-5 mg Tab: 1 tab(s), Tab, Oral, q4hr PRN Pain 4-7 for 5 day(s), Stop date 10/26/22 11:59:00 EST, Routine, Start date 10/21/22 12:00:00 EST acetaminophen-oxycodone 325 mg-5 mg Tab: 2 tab(s), Tab, Oral, q4hr PRN Pain 4-7 for 5 day(s), Stop date 10/26/22 11:59:00 EST, Routine, Start date 10/21/22 12:00:00 EST cefazolin additive + Sodium Chloride 0.9% intravenous solution 50 mL: 2 gram = 1 EA, IV Piggyback, q8hr for 2 dose(s), Stop date 10/22/22 3:59:00 EST, Routine, Start date 10/21/22 12:00:00 EST, 100 mL/hr, Infuse over 30 minute(s), 10/21/22 12:00:00 EST cefazolin additive + Sodium Chloride 0.9% intravenous solution 50 mL: 2 gram = 1 EA, Powder-Inj, IVPiggyback, PREOP, Routine, Start date 10/21/22 9:30:00 EST, 100 mL/hr, Infuse over 30 minute(s) morphine 2 mg/mL Inj: 2 mg = 1 mL, Injection, IV, q4hr PRN Pain 8-10 for 5 day(s), Stop date 10/26/22 11:59:00 EST, Routine, Start date 10/21/22 12:00:00 EST, 10/21/22 12:00:00 EST Prescriptions Prescribed Colace 100 mg Cap: 100 mg = 1 cap(s), Oral, BID, # 20 cap(s), Refills(s) 0, [id number], 157, cm, 09/30/22 11:59:00 EST, Height/Length Dosing, 54.6, kg, 09/30/22 11:59:00 EST, WeightDosing Keflex 500 mg Cap: 500 mg = 1 cap(s), Oral, QID, Start the day after surgery, X 5 day(s), # 20 cap(s), Refills(s) 0, [id number], 157, cm, 09/30/22 11:59:00 EST, Height/Length Dosing, 54.6, kg, 09/30/22 11:59:00 EST, Weight Dosing Percocet 5 mg-325 mg oral tablet: See Instructions, 50 tab(s), Refill(s) 0, Take 1-2 po q 4 hours prn knee surgery pain, [id number], 157, cm, 09/30/22 11:59:00 EST, Height/Length Dosing, 54.6, kg, 09/30/22 11:59:00 EST, Weight Dosing aspirin 325 mg Tab: 325 mg = 1 tab(s), Oral, Daily, Start the day after surgery, X 30 day(s), # 30 tab(s), Refills(s) 0, [id number], 157, cm, 09/30/22 11:59:00 EST, Height/Length Dosing, 54.6, kg, 09/30/22 11:59:00 EST, Weight Dosing Documented Medications Documented Agilease: Agilease, 1 tab, Oral, BID BLM: BLM, 1 tab, Oral, Daily Celebrate Multivitamin oral capsule: 1 tab, Oral, Daily, Prophylaxis Citracal Regular 250 mg-200 intl units oral tablet: 1 tab(s), Oral, TID, (more content not included)...[facility] HospitalComment on above:Result Comment: Electronically Signed By: Juan Jose Lucero Jr., DO\.br\Date and Time Signed: 10/21/22 13:09 ESTXR Knee 1 or 2 Views Righton 40-55-8547LT Knee 1 or 2 Views RightExam Date/Time: 10/21/2022 13:41 EST Reason for Exam: Post-op evaluation;Other (please specify) Report IMPRESSION: RIGHT TOTAL KNEE REPLACEMENT. CLINICAL INFORMATION: Postop. COMMENT: 2 views. There is a right total knee prosthesis, in good position and alignment. There is gas in the soft tissues from the surgery. There are metallic surgical zaire along the anterior skin incision. Ordering Provider: Amira Flaherty FINAL REPORT Dictated: 10/21/2022 3:58 pm Dio Carlson M.D. Signed (Electronic Signature): 10/21/2022 3:58 pm Signed by: Dio Carlson M.D. Transcribed by: PRITI Technologist: KATELYNN Technical Comments Radiation Dose: haily Benz in mGy = na DAP = naNormalCleveland Clinic Euclid HospitalConsent for Procedure/Surgeryon 30-37-6208Roxujdi for Procedure/Surgery [id number]:127[facility] HospitalOutside Recordson 44-17-7880Zqfgvdb Records [id number]#1.00CD:[address] [place], [place] [address]Coding Summary.on 83-36-4058Irfhsl Summary. CD:[id number]+PGhlYWQ+DB3FUEDlA97xqJHqrL1NX5yKJC7JWHBRADIBKX7CMK9cp YQ3DWgbP3QofiQz [file] b2xs (more content not included)...[facility] HospitalCOVID-19 ([facility])on 02-21-7921Rappwbpuzl [facility] access hospital 2NFulton County Health CenterComment on above:Performed By: #### [id number] ####[facility] Dnrzucosyt[address] Shipley [id number]-EkN-5 (COVID-19) RNA TORO+probe Ql (Resp)Not detectedNormalNot [facility] Comment on above:Result Comment: This test result should be correlated with clinical presentations and medical history by a healthcare provider to determine its clinical significance. This assay was performed by a reverse transcriptase real-time polymerase chain reaction (rt PCR) method on the [employer] system. This test has been authorized only for the detection of nucleic acid from SARS-CoV-2, not for any other viruses or pathogens. This test has not been FDA cleared or approved. This test has been authorized by FDA under an Emergency Use Authorization (EUA). This test is only authorized for the duration of time the declaration on that circumstances exist justifying the authorization emergency use of in vitro diagnostic tests for detection and/or diagnosis of COVID-19 infection under section 564 (b) (1) of the Act, 21 U.S.C. 360 bbb-3 (b) (1), unless authorization is terminated or revoked sooner.Performed By: #### [id number] ####[place] [address] [place] [facility], [id number]-AeE-3 (COVID-19) RNA TORO+probe Ql (Unsp spec)PassNormalSelect Medical Specialty Hospital - AkronComment on above:Performed By: #### [id number] ####[place] [address] [place] [facility], [id number] source Nom (Unsp spec)NasalNormTrinity Health SystemComment on above:Performed By: #### [id number] ####[address] [address] [place] [facility], [id number] TO INTENSIVE CARE UNIT FOR CONDITION OF INTEREST:FIND:PT:NONormalCleveland Clinic Euclid Hospital Comment on above:Performed By: #### [id number] ####[place] [address] [place] [facility], [id number] IN A HEALTHCARE SETTING:FIND:PT:UnknownNormalCleveland Clinic Euclid HospitalComment on above: Performed By: #### [id number] ####[facility] [address] [place] [address], [id number] TEST FOR CONDITION OF INTEREST:FIND:PT:Unknown NormalCleveland Clinic Euclid HospitalComment on above:Performed By: #### [id number] ####[address], OV[address]DKR SYMPTOMS RELATED TO CONDITION OF INTEREST:FIND:PT:UnknownNormalCleveland Clinic Euclid HospitalComment on above:Performed By: #### [id number] ####[address] [id number] FOR CONDITION OF INTEREST:FIND:PT:NONormalCleveland Clinic Euclid HospitalComment on above:Performed By: #### [id number] ####[address], HF90308DMWTDQOIH STATUS:FIND:PT:NONormal [facility] HospitalComment on above:Performed By: #### [id number] ####[address], [id number] RESIDES IN A [facility] CARE SETTING:FIND:PT:NONFulton [facility] Comment on above:Performed By: #### [id number] ####[address], CM130[address]Qelotzi for Treatmenton 10-14-2022 Consent for [id number]:127Normal [facility]uclid HospitalCoding Summary.on 60-71-8632Cyifom Summary. CD:[id number]+PGhlYWQ+EJ5XVFVtT24kwDYdiP1JH7nRQI2IKINCHIHYMB1KAU7bd FN1GTosY2TicfEr [file] Y29s (more content not included)...[facility] Urineon 07-79-4787Lahbztsl identified Cx Nom (U)Microbiology PROCEDURE: Urine Culture [R1] SOURCE: U CleanCatch BODY SITE: COLLECTED DATE/TIME: 09/30/2022 07:58 EST RECEIVED DATE/TIME: 09/30/2022 10:33 EST START DATE/TIME: 09/30/2022 10:34 EST FREE TEXT SOURCE: Amira Flaherty DO, DO, Amira Walsh FINAL REPORTS Final Report [] Verified Date/Time: 10/02/2022 09:12 EST >100,000 cfu/ml Escherichia coli SUSCEPTIBILITY RESULTS LEGEND: S=Susceptible, N/R=Not Reported, Blank=Data not available, or drug not advisable or tested, I=Intermediate, ESBL=Extended spectrum beta-lactamase, R=Resistant, TFG=Thymidine-dependent strain, EMI=Beta-lactamase positive, PETER=mcg/m;(mg/L), S*=Predicted susceptible interp, R*=Predicted resistant interp EC Antibiotic PETER Dilutn PETER Interp Amikacin <=16 S Ampicillin <=8 S Ampicillin/ <=8/4 S Sulbactam Aztreonam <=4 S Cefazolin <=2 S Cefepime <=2 S Cefoxitin <=8 S Ceftazidime <=1 S Ceftazidime/ <=8 S Avibactam Ceftriaxone <=1 S Ciprofloxacin <=1 S Ertapenem <=0.5 S Gentamicin <=4 S Levofloxacin <=2 S Meropenem <=1 S Nitrofurantoin <=32 S Piperacillin/ <=16 S Tazobactam Tetracycline <=4 S Tigecycline <=2 S Tobramycin <=4 S Trimethoprim/ <=2/38 S Sulfa Performing Locations R1: This test was performed at: [facility], [address] [place] [address], [address] , , XkqepnKvwkrqCleveland Clinic Euclid HospitalComment on above:Performed By: #### [id number], [id number] #### [facility] [address] [place] [address]MZF/Rh Retypeon 94-14-8621GZG/Rh Retype InterpPositiveInvalid Interpretation CodeCleveland Clinic Euclid HospitalComment on above:Performed By: #### [id number] ####[address] [employer] [address]KEKAT BANKOrdered By: Magdalena Batres on 06-91-6395BCZ/Rh Retype InterpPositiveInvalid Interpretation [facility] BB SubsectionBUNon 32-82-4807Bodp nitrogen [Mass/Vol]13 mg/dLNormal5-21C[facility]ucl[facility] HospitalComment on above:Performed By: #### [id number], 1040566, 4515911, 7854676, 9798379, 1090097 #### [facility] [address] [place] [address]TIW w/Indiceson 57-06-8429Gwbejxqinlg distribution width (RBC) [Ratio]12.5 %Neyrre64.9-14.2FCleveland Clinic Mercy HospitalComment on above: Performed By: #### [id number], 2063073, 2022212, 4941638, 5483192, 4940105 #### [facility] [address] [place] [address] 17399Sxfbrsikzk (Bld) [Volume fraction]37.9 %Rjicxe41.0-46.0C[facility] Euclid HospitalComment on above:Performed By: #### [id number], 9982638, 1493770, 8360491, 3638233, 8877459 #### [facility] [address] [place] [address]Pypcfyqzkf (Bld) [Mass/Vol]13.2 g/zIIzzrdt97.0-16.0[facility]ucl[facility] HospitalComment on above:Performed By: #### [id number], 7221808, 3044682, 1290470, 4349786, 5326792 #### [facility] [address] [place] [address] 73181EEZ (RBC) [Entitic mass]31.6 rjDlazcb51.0-34.0C[facility]ucl[facility] HospitalComment on above:Performed By: #### [id number], 8989511, 3166141, 0381161, 4917434, 6327515 #### [facility] [address] [place] [address] 12438OCZJ (RBC) [Mass/Vol]34.7 g/eSGanuru92.4-36.0C[facility] Euclid HospitalComment on above:Performed By: #### [id number], 3549571, 2298177, 2757270, 1060250, 4591155 #### [facility] [address] [place] [address] 95668BZH (RBC) [Entitic vol]91.0 qUHtekni20.0-100.0C[facility]ucl[facility] HospitalComment on above:Performed By: #### [id number], 7250613, 3348561, 1305512, 8131897, 6772115 #### [facility] [address] [place] [address]79[address]Kdefwngs mean volume (Bld) [Entitic vol]7.5 fLNormal6.4-10.8 [facility] HospitalComment on above:Performed By: #### [id number], 1450394, 9941493, 5417706, 0763689, 9849037 #### [facility] [address] [place] [address]98[address]Qoeshbjeg (Bld) [#/Vol]172.0 E9/YNgnlxf909.0-500.0[facility]ucl[facility] HospitalComment on above:Performed By: #### [id number], 0581460, 4021234, 4054649, 5399013, 3361239 #### [facility] [address] [place], [place] [address]ZGM (Bld) [#/Vol]4.2 E12/LLow4.3-5.9[facility] Comment on above:Performed By: #### [id number], 2695429, 9288821, 9329119, 2329382, 3351195 #### [facility] [address] [place], [place] [address]OZW corrected for nucl RBC Auto (Bld) [#/Vol]4.3 E9/LNormal 4.0-11.0[facility]ucl[facility] HospitalComment on above:Performed By: #### [id number], 9403972, 4508207, 0221377, 9374909, 9357610 #### [facility] [address] [place], [place] [address]YMFMEKBZPTxpwjmq By: SYSTEM SYSTEM on 93-34-9502Zzjvb gap [Moles/Vol]12 mmol/LNormal6 - 16 mEq/LFTMC RemisolChloride [Moles/Vol]101 mmol/L Jluevf581 - 111 mmol/LFTMC RemisolCO2 [Moles/Vol]26 mmol/WStlewx47 - 31 mmol/L [facility] RemisolCreatinine [Mass/Vol]0.8 mg/dLNormal0.5 - 1.3 mg/dLFTMC Remisol GFR/1.73 sq M.predicted among blacks MDRD (S/P/Bld) [Vol rate/Area]mL/min/1.73 h1Xgshfi>=59mL/min/1.73 m2FT Chem SGFR/1.73 sq M.predicted among non-blacks MDRD (S/P/Bld) [Vol rate/Area]mL/min/1.73 y3Rgjhut>=59mL/min/1.73 m2[facility] Chem S Glucose [Mass/Vol]94 mg/xUXvvyro00 - 199 mg/dLFT RemisolPotassium [Moles/Vol] 3.7 mmol/LNormal3.5 - 5.3 mmol/LFTMC RemisolSodium [Moles/Vol]135 mmol/LNormal 135 - 145 mmol/LFTMC RemisolUrea nitrogen [Mass/Vol]13 mg/dLNormal5 - 21 mg/dL [facility] RemisolConsent for Treatmenton 16-59-5983Gfxpnxt for Treatment [id number]:127NormalCleveland Clinic Euclid HospitalCreatinineon 27-29-5285Muunogzoub [Mass/Vol]0.8 mg/dLNormal0.5-1.3[facility] Agnes HospitalComment on above:Performed By: #### [id number], 1368790, 8170799, 2662867, 7706357, 0744692 ####[facility] [address] [employer], [place] [address]Tiubdgdky 32-58-7492Vwfhcfz [Mass/Vol]94 mg/dL Qfmgra94-638FetujgCleveland Clinic Euclid HospitalComment on above:Performed By: #### [id number], 1681701, 6291167, 1144226, 7982581, 0376233 #### [facility] Laboratory [address] [place], [place] [address]AQRBJCDOGKZhamtiy By: Lubna Giles on 24-81-4125Ihlymilazxf distribution width (RBC) [Ratio]12.5 %Jgbiyn14.9 - 14.2 %[facility] HemeAutoSS Hematocrit (Bld) [Volume fraction]37.9 %Stuzkc13.0 - 46.0 %[facility] HemeAutoSS Hemoglobin (Bld) [Mass/Vol]13.2 g/pTVbopcb69.0 - 16.0 gm/dLFTMC HemeAutoSSMCH (RBC) [Entitic mass]31.6 tiGubiaq73.0 - 34.0 pgFTMC HemeAutoSSMCHC (RBC) [Mass/Vol]34.7 g/tHImwrqh20.4 - 36.0 gm/dLFT HemeAutoSSMCV (RBC) [Entitic vol] 91.0 lHEjwxqq74.0 - 100.0 fLBRISTOW MEDICAL [facility] [place] HemeAutoSSPlatelet mean volume (Bld) [Entitic vol]7.5 fLNormal6.4 - 10.8 fLBRISTOW MEDICAL [facility] HemeAutoSSPlatelets (Bld) [#/Vol]172.0 E9/L Qbfqef064.0 - 500.0 E9/LFBRISTOW MEDICAL [facility] HemeAutoSSRBC (Bld) [#/Vol]4.2 E12/LLow4.3 - 5.9 E12/LFBRISTOW MEDICAL [facility] HemeAutoSSWBC corrected for nucl RBC Auto (Bld) [#/Vol]4.3 E9/LNormal 4.0 - 11.0 E9/LFBRISTOW MEDICAL [facility] HemeAutoSSLyteson 11-29-1114Ruilm gap [Moles/Vol]12 mmol/L Normal6-16[facility]ucl[facility] HospitalComment on above:Performed By: #### [id number], [id number], 3436663, 0831852, 1558694, 2332418 ####[facility] [address] [employer], [place] [address]Mjycoaxi [Moles/Vol]101 mmol/L Yifeat516-693GisivsCleveland Clinic Euclid HospitalComment on above:Performed By: #### [id number], 5243910, 0810373, 6451017, 2101750, 8242656 ####[facility] [address] [employer] [place] [employer] [place] [address]QG7 [Moles/Vol]26 mmol/LNormal 21-31[facility] HospitalComment on above:Performed By: #### [id number], 0849133, 1936339, 8599580, 7411578, 5139642 ####[facility] [address]NA[place], [place] [address]Oisviojlx [Moles/Vol]3.7 mmol/LNormal 3.5-5.3FCleveland Clinic Mercy HospitalComment on above:Performed By: #### [id number], 7972688, 3590947, 7550474, 4752952, 6537093 ####[facility] [address] [employer], [place] [address]Pgjdvf [Moles/Vol]135 mmol/LNormal 135-145[facility] HospitalComment on above:Performed By: #### [id number], 5956109, 8627107, 7810356, 4630483, 8442305 ####[facility] [address] [employer] [place] [employer], [place] [address]YQ With Cult Reflexon 09-30-2022 Bacteria LM Ql (Urine sed)1+ /HPFAbnormalTraceCleveland Clinic Euclid HospitalComment on above:Performed By: #### [id number], [id number] #### [facility] Laboratory [address] [place], [place] [address]Avgspjgpt Ql (U)NegativeNormalNegMagruder HospitalComment on above:Performed By: #### [id number], [id number] #### [facility] Laboratory [address] [place], [place] [address]Ssrowws (U)CLEARNormalClearCleveland Clinic Euclid HospitalComment on above:Performed By: #### [id number], [id number] #### [facility] Laboratory [address] [place], [place] [address]Xmxed (U)YELLOWNormalYellowCleveland Clinic Euclid HospitalComment on above:Performed By: #### [id number], [id number] #### [facility] Laboratory [address] [place], [place] [address]Ztkkaukt LM Ql (Urine sed)PresentNormalCleveland Clinic Euclid HospitalComment on above:Performed By: #### [id number], [id number] #### [facility] Laboratory [address] [place], [place] [address]Wrsuipkajo cells.squamous LM.HPF (Urine sed) [#/Area]0-2Normal 0-2Fisher St. Agnes HospitalComment on above:Performed By: #### [id number], [id number] #### [facility] Laboratory [address] [place], [place] [address]Ppxfipu Test strip (U) [Mass/Vol]NegativeNormalNegMagruder HospitalComment on above:Performed By: #### [id number], [id number] #### [facility] Laboratory [address] [place], [place] [address]Oofzjtyocy Ql (U)NegativeNormalNegativeCleveland Clinic Euclid HospitalComment on above:Performed By: #### [id number], [id number] #### [facility] Laboratory [address] [place], [place] [address]Wontegf (U) [Mass/Vol]NegativeNormalNegativeCleveland Clinic Euclid HospitalComment on above:Performed By: #### 7788028, [id number] #### [facility] Laboratory [address] [place], [place] [address]Ntvnxou.plasma/[place].RBC (Bld) [Mass ratio]2-3Ribcfz5-0Omejdc [facility]. Agnes HospitalComment on above:Performed By: #### [id number], [id number] #### [facility] Laboratory [address] [place], [place] [address]Siqrr Ql (Urine sed)TRACENoPremier Health [facility] Comment on above:Performed By: #### [id number], [id number] #### [facility] Laboratory [address] [place], [place] [address]Ssaoqzz Ql (U)[facility] Comment on above:Performed By: #### 9576313, [id number] #### [facility] Laboratory [address] [place], [place] [address]bE (U)7.5 [pH]Invalid Interpretation Code5.0-9.0[facility] HospitalComment on above:Performed By: #### [id number], [id number] #### [facility] Laboratory [address] [place], [place] [address]Pkrdcvh (U) [Mass/Vol]NegativeNormalNegMagruder HospitalComment on above:Performed By: #### 9695147, 56393485 #### [facility] Laboratory [address] [place], [place] [address]Kxbfxmdo gravity (U) [Rel density]1.015Invalid Interpretation Code1.005-1.030[facility] HospitalComment on above:Performed By: #### [id number], [id number] #### [facility] Laboratory [address] [place] [address]Ylrx of Urine collection methodClean CatchNormalCleveland Clinic Euclid HospitalComment on above:Performed By: #### [id number], [id number] #### [facility] Laboratory [address] [place] [address]Rzkpywaprkyd Qn (U)0.2 {Dmitry'U}/dLNormal0.0-1.0[facility] HospitalComment on above:Performed By: #### [id number], [id number] #### [facility] Laboratory [address] [place] [address]RQN Auto Ql (U)2+AbnormalNegativeCleveland Clinic [facility] Hospital Comment on above:Performed By: #### 7845109, [id number] #### [facility] Laboratory [address] [place] [address]OQT LM.HPF (Urine sed) [#/Area]5-19Ufeactes3-8Zpmkyo St. Agnes HospitalComment on above:Performed By: #### [id number], [id number] #### [facility] Laboratory [address] [place] [address]WPPTUTHZDPYvjofdr By: Magdalena Sharma on 21-59-3221Ltnunxfn LM Ql (Urine sed)1+ /HPFInvalid Interpretation CodeTrace/HPFBRISTOW [facility] UA Auto SS Bilirubin Ql (U)Negative (09/30/22 7:58 AM)NormalNegativeBRISTOW MEDICAL [facility] UA Auto SSClarity (U)Clear (09/30/22 7:58 AM)NormalClearFBRISTOW MEDICAL [facility]ENTER [facility] UA Auto SSColor (U)Yellow (09/30/22 7:58 AM)NormalYellowBRISTOW MEDICAL CENTER – [place] UA Auto SSCrystals LM Ql (Urine sed)Present (09/30/22 7:58 AM)NormalBRISTOW MEDICAL CENTER – [place] UA Auto SSEpithelial cells.squamous LM.HPF (Urine sed) [#/Area]0-2 /HPFNormal0-2/HPFBRISTOW MEDICAL CENTER [facility] UA Auto SSGlucose Test strip (U) [Mass/Vol]Negative (09/30/22 7:58 AM)NormalNegativeBRISTOW MEDICAL [facility]ENTER [facility] UA Auto SSHemoglobin Ql (U)Negative (09/30/22 7:58 AM)NormalNegativeBRISTOW MEDICAL [facility]ENTER [facility] UA Auto SSKetones (U) [Mass/Vol]Negative (09/30/22 7:58 AM)NormalNegativeBRISTOW MEDICAL [facility] UA Auto SSLithium.plasma/[place].RBC (Bld) [Mass ratio]0-3 /HPFNormal0-3/HPFBRISTOW MEDICAL CENTER [facility] UA Auto SSMucus Ql (Urine sed)Trace (09/30/22 7:58 AM)NormalBRISTOW MEDICAL CENTER [facility] UA Auto SSNitrite Ql (U)Negative (09/30/22 7:58 AM)NormalNegativeBRISTOW MED[facility] UA Auto SSpH (U)7.5 *NA* (09/30/22 7:58 AM)Invalid Interpretation Code5.0 - 9.0[facility] UA Auto SSProtein (U) [Mass/Vol]Negative (09/30/22 7:58 AM)NormalNegativeBRISTOW MEDICAL [facility]ENTER [facility] [place] UA Auto SSSpecific gravity (U) [Rel density] 1.015 *NA* (09/30/22 7:58 AM)Invalid Interpretation Code1.005 - 1.030[facility] UA Auto SSUA Spec DescClean Catch (09/30/22 7:58 AM)NormalBRISTOW MEDICAL CENTER – [facility] UA Auto SSUrobilinogen Qn (U)0.5444219 {Dmitry'U}/dL Normal0.0 - 1.0 EU/dLBRISTOW MEDICAL CENTER – [facility] UA Auto SSWBC Auto Ql (U)2+ *ABN* (09/30/22 7:58 AM)Invalid Interpretation CodeNegativeBRISTOW MEDICAL CENTER [facility] UA Auto SSWBC LM.HPF (Urine sed) [#/Area]6-15 /HPFInvalid Interpretation Code0-5/HPFBRISTOW MEDICAL CENTER – [facility] UA Auto SSXR Chest 2 Viewson 28-43-5950PQ Chest 2 ViewsExam Date/Time: 09/30/2022 08:18 EST Reason for Exam: Pre Op Report IMPRESSION: CLEAR HYPEREXPANDED LUNGS.. CLINICAL INFORMATION: Pre Op COMPARISON: None available. FINDINGS: 2 views. Osseous structures are intact. Cardiopericardial silhouette is normal. Pulmonary vasculature is normal. Lungs are clear and hyperexpanded. FINAL REPORT Dictated: 09/30/2022 9:03 am Asif Norman MD Signed (Electronic Signature): 09/30/2022 9:03 am Signed by: Asif Norman MD Transcribed by: PRITI Technologist: [facility] HospitaleGFRon 18-38-5045LVK/1.73 sq M.predicted among blacks MDRD (S/P/Bld) [Vol rate/Area] mL/min/{1.73_m2}Normal>=59C[facility]ucl[facility] HospitalComment on above:Order Comment: Order added by Discern Expert.Result Comment: eGFR is race adjusted. AA=.Performed By: #### [id number], [id number], 0925864, 4138657, 2534030, 3644479 ####[facility] [address] [employer] [place] [employer], [place] [address]QFS/1.73 sq M.predicted among non-blacks MDRD (S/P/Bld) [Vol rate/Area]mL/min/{1.73_m2}Normal>=59[facility] HospitalComment on above:Order Comment: Order added by Discern Expert.Result Comment: Chronic kidney disease could be indicated at eGFR's of less than 60 mL/min/1.73m2. K idney failure is indicated at less than 15 mL/min/1.73m2.Performed By: #### [id number], 6597955, 5260322, 4823927, 5206309, 5225945 ####[facility] [address] [employer] [place] [employer] [place], [place] [address]Knndqjoju Orderon 09-02-2022 Physician [id number]#1.00CD:127[facility] HospitalOutside Records Officeon 56-99-6641Mzqmsam Records Office [id number]#1.00CD:127[facility] HospitalReferrals Officeon 04-86-6077Pqaslgotj Office [id number]#1.00CD:127[facility]zer HospitalCBC AUTO DIFFon 10-12-6559XWVN #0.0 103/ulNormal0.0-0.1[facility] Osteopathic ClinicComment on above:Performed By: #### CBC #### [facility] Laboratory [address] [place] [address] Jaciel KarenBasophils/100 WBC (Bld)0.5 %Normal0.2-2.0The [facility] Comment on above:Performed By: #### CBC #### [facility] Laboratory [address] [place] [address] Jaciel KarenEO #0.1 103/ulNormal0.0-0.7The [facility] HospitalComment on above: Performed By: #### CBC #### [facility] Laboratory [address] [place] [address] Jaciel KarenEosinophils/100 WBC (Bld)2.5 %Normal0.9-7.0[facility] Comment on above:Performed By: #### CBC #### [facility] Laboratory [address] [place] [address] Jaciel KarenErythrocyte distribution width (RBC) [Ratio]12.2 %Fimrva15.0-15.0[facility]opathic ClinicComment on above:Performed By: #### CBC #### [facility] Laboratory [address] [place] [address] Jaciel KarenHematocrit (Bld) [Volume fraction]38.5 %Rsranf23.0-48.0[facility]opathic ClinicComment on above:Performed By: #### CBC #### [facility] Laboratory [address] [place] [address] Jaciel KarenHemoglobin (Bld) [Mass/Vol]13.1 g/kHIvsexl33.0-16.0[facility] ClinicComment on above:Performed By: #### CBC #### [facility] Laboratory [address] [place] [address] Jaciel KarenIG #0.01 10e3/ulNormal0.00-0.03[facility]opathic ClinicComment on above:Performed By: #### CBC #### [facility] Laboratory [address] [place] [address] Jaciel HiG %0.2 %Normal0.0-0.5ThHolmes County Joel Pomerene Memorial HospitalComment on above: Performed By: #### CBC #### [facility] Laboratory [address] [place] [address] Jaciel EasonLYMPH #1.1 103/ulCritically low1.2-3.8The [facility] HospitalComment on above:Performed By: #### CBC #### [facility] Laboratory [address] [place] [address] Jaciel EasonLymphocytes/100 WBC (Bld)24.7 %Kiqjrr90.5-60.0[facility] Comment on above:Performed By: #### CBC #### [facility] Laboratory [address] [place] [address] Jaciel EasonMANUAL DIFF REQNONormalThe [facility] HospitalComment on above: Performed By: #### CBC #### [facility] Laboratory [address] [place] [address] Jaciel KarenH (RBC) [Entitic mass]30.7 mtAmyldi00.7-34.0[facility] Comment on above:Performed By: #### CBC #### [facility] Laboratory [address] [place] [address] Jaciel KarenMCHC (RBC) [Mass/Vol]34.0 g/lTPmqrbx84.9-35.2[facility] Comment on above:Performed By: #### CBC #### [facility] Laboratory [address] [place] [address] Jaciel KarenV (RBC) [Entitic vol]90.2 yUVavbzl19.0-99.0[facility] Comment on above:Performed By: #### CBC #### [facility] Laboratory [address] [place] [address] Jaciel EasonMONO #0.6 103/ulNormal0.3-0.8ThHolmes County Joel Pomerene Memorial HospitalComment on above: Performed By: #### CBC #### [facility] Laboratory [address] [address] Jaciel KarenMonocytes/100 WBC (Bld)14.2 %Critically high1.7-12.0The [facility] HospitalComment on above:Performed By: #### CBC #### [facility] Laboratory [address] [address] Jaciel KarenNEUT #2.5 103/ulNormal1.4-6.5The [facility] HospitalComment on above: Performed By: #### CBC #### [facility] Laboratory [address] [address] Jaciel KarenNeutrophils/100 WBC (Bld)57.9 %Ycfzxb49.0-75.0The [facility] Comment on above:Performed By: #### CBC #### [facility] Laboratory [address] [address] Jaciel KarenPlatelet mean volume (Bld) [Entitic vol]9.2 fLCritically low9.5-13.5 The [facility] HospitalComment on above:Performed By: #### CBC #### [facility] Laboratory [address] [place] [address] Jaciel WniceBFM300 103/sgQhflrw803-922Vky [facility] HospitalComment on above: Performed By: #### CBC #### [facility] Laboratory [address] [address] Jaciel KarenRBC4.27 106/ulNormal4.20-5.40The [facility] HospitalComment on above: Performed By: #### CBC #### [facility] Laboratory [address] [place] [address] Jaciel KarenWBC4.4 103/ulNormal4.0-11.0The [facility] HospitalComment on above: Performed By: #### CBC #### [facility] Laboratory [address] [address] Jaciel KarenCT STROKE HEAD WOon [id number] STROKE HEAD WONONCONTRAST HEAD CT COMPARISON: None. CLINICAL HISTORY: Right facial droop. TECHNIQUE: Routine noncontrast images of the brain obtained. CT examination of the head without IV contrast. Dose reduction techniques were achieved by using: automated exposure control and/or adjustment of mA and /or kV according to patient size and/or use of iterative reconstruction technique. FINDINGS: Paranasal sinuses and mastoid air cells are clear. Intraorbital contents are unremarkable. No acute bony abnormality. Intracranially, there is no evidence of hemorrhage, mass effect, or midline shift. Ventricles and cisternal spaces are age appropriate. IMPRESSION: No acute intracranial abnormality. Electronically authenticated by: LUIS FELIPE MOORE Date: 2020-12-14 08:28[facility] HEAD WO W CONon 12-08-3723LXD HEAD WO W CONEXAMINATION: CTA HEAD WO W CON HISTORY: Right facial drooping, possible CVA. COMPARISON: Head CT performed earlier the same day. TECHNIQUE: A contrast-enhanced CTA scan was performed of the head and neck after administration 100 mL of Omnipaque 350 IV. Sagittal and coronal reformatted images were produced. MIP (maximum intensity projection) images were performed. Dose reduction techniques were achieved by using automated exposure control and/or adjustment of mA and/or kV according to patient size and/or use of iterative reconstruction technique. FINDINGS: There is a normal three-vessel arch. A small amount of calcified plaque is seen in the visualized aortic arch. The origins of the 3 vessels off the aortic arch show no significant atherosclerotic disease or narrowing. The common carotid arteries are symmetric in size and show no significant disease. Evaluation of a portion of the common carotid arteries is limited due to significant motion artifact. The carotid bulbs show no significant disease. The internal carotid arteries are symmetric in size and show no significant disease to the [place]. No significant narrowing is seen in the vertebral arteries. The left vertebral artery slightly larger than the right. The basilar artery is normal. No abnormality is seen in the [place]. Visualized intracerebral vasculature shows no asymmetry and no aneurysms are seen. Visualized venous drainage is normal. No suspicious or destructive bone lesions are seen. IMPRESSION: Normal exam. There is only minimal atherosclerotic disease in the visualized aortic arch. If clinical concern remains, consider further imaging with MRI. Electronically authenticated by: AMIRA ROGERS Date: 2020-12-14 09:35[facility] NECK WO W CONon [id number] NECK WO W CONEXAMINATION: CTA NECK WO W CON HISTORY: Cerebrovascular accident ; right facial droop, pain behind right ear COMPARISON: No relevant comparison available. TECHNIQUE: Axial, Coronal, and Sagittal CT images without and with IV contrast. Multi-planar/3-D imaging to optimize visualization of vascular anatomy. Percent stenosis is based on NASCET criteria. Dose reduction techniques were achieved by using automated exposure control and/or adjustment of mA and/or kV according to patient size and/or use of iterative reconstruction technique. FINDINGS: HEAD: VASCULATURE: Normal. No significant stenosis. No visible aneurysm or vascular malformation. VENTRICLES: Normal for age. No enlargement or displacement. CEREBRUM: Normal for age. No excessive atrophy, mass, or hemorrhage, or abnormal enhancement. CEREBELLUM: Normal for age. No excessive atrophy, mass, or hemorrhage, or abnormal enhancement. BRAINSTEM: Normal for age. No excessive atrophy, mass, or hemorrhage, or abnormal enhancement. BASAL CISTERNS: Normal. No subarachnoid hemorrhage or effacement. SKULL: Mild mucosal thickening within the maxillary sinuses.. NECK: RIGHT INTERNAL CAROTID: No hemodynamically significant stenosis or dissection. EXTERNAL CAROTID: No hemodynamically significant stenosis or dissection. COMMON CAROTID: No hemodynamically significant stenosis or dissection. VERTEBRAL: No hemodynamically significant stenosis or dissection. LEFT INTERNAL CAROTID: No hemodynamically significant stenosis or dissection. EXTERNAL CAROTID: No hemodynamically significant stenosis or dissection. COMMON CAROTID: No hemodynamically significant stenosis or dissection. VERTEBRAL: No hemodynamically significant stenosis or dissection. OTHER: The visualized soft tissues of the neck are also unremarkable. IMPRESSION: 1. Normal CT angiography of the head and neck. No acute or suspicious findings to account for the patient's symptoms. 2. Paranasal mild chronic sinusitis. Electronically authenticated by: REGAN HERMAN Date: 2020-12-14 10:32[facility] HospitalPROF 14(COMP METB)on 21-28-2934Qswsybo [Mass/Vol]4.3 g/dLNormal 3.5-5.0The [facility] HospitalComment on above:Performed By: #### HSTROPN, CMP #### [facility] Laboratory [address] [place] [address] Jaciel KarenAlbumin/Globulin [Mass ratio]1.0 {ratio}NormalThe [facility] Comment on above:Performed By: #### ARCADIO, CMP #### [facility] Laboratory [address] [id number] Jaciel KarenALP [Catalytic activity/Vol]47 U/DGawlwu45-028Hap [facility] Comment on above:Performed By: #### ARCADIO, CMP #### [facility] Laboratory [address] [address] Jaciel KarenALT [Catalytic activity/Vol]6 U/LCritically low9-52The [facility] HospitalComment on above:Performed By: #### ARCADIO, CMP #### [facility] Laboratory [address] [address] Jaciel KarenAnion gap [Moles/Vol]14.2 mmol/LNormalThe [facility] HospitalComment on above:Performed By: #### ARCADIO, CMP #### [facility] Laboratory [address] [address] Jaciel KarenAST [Catalytic activity/Vol]13 U/LCritically xer13-93Anp [facility] HospitalComment on above:Performed By: #### ARCADIO, CMP #### [facility] Laboratory [address] [address] Jaciel KarenBilirubin [Mass/Vol]0.6 mg/dLNormal0.2-1.3TClinton Memorial Hospital Comment on above:Performed By: #### ARCADIO, CMP #### [facility] Laboratory [address] [place] [address] Jaciel KarenCalcium [Mass/Vol]9.6 mg/dLNormal8.4-10.2[facility] Comment on above:Performed By: #### ARCADIO, CMP #### [facility] Laboratory [address] [place], [place] [address] Jaciel KarenChloride [Moles/Vol]101 mmol/OApafmq71-810Bzu [facility] Comment on above:Performed By: #### HSTROPEder, CMP #### [facility] Laboratory [address] [address] Jaciel KarenCO2 [Moles/Vol]28.7 mmol/MLhxfzm14.0-30.0The [facility] Comment on above:Performed By: #### ARCADIO, CMP #### [facility] Laboratory [address] [place] [address] Jaciel KarenCreatinine [Mass/Vol]0.88 mg/dLNormal0.52-1.04The [facility] Comment on above:Performed By: #### ARCADIO, CMP #### [facility] Laboratory [address] [place] [address] Jaciel KarenEGFR-AF MAURITANIAN>60Normal>=60The [facility] HospitalComment on above: Performed By: #### ARCADIO, CMP #### [facility] Laboratory [address] [place] [address] Jaciel KarenEGFR-NON AF MAURITANIAN>60Normal>=60The [facility] HospitalComment on above:Performed By: #### ARCADIO, CMP #### [facility] [address] [place] [address] Jaciel KarenGlobulin (S) [Mass/Vol]4.3 g/dLNormalThe [facility] HospitalComment on above:Performed By: #### ARCADIO, CMP #### [facility] Laboratory [address] [place] [address] Jaciel KarenGlucose [Mass/Vol]103 mg/uUNkmcqs64-877LmuMarietta Osteopathic ClinicComment on above:Performed By: #### ARCADIO, CMP #### [facility] Laboratory [address] [place] [address] Jaciel KarenPotassium [Moles/Vol]3.9 mmol/LNormal3.4-5.0The [facility] Comment on above:Performed By: #### ARCADIO, CMP #### [facility] Laboratory [address] [place] [address] Jaciel KarenProtein [Mass/Vol]8.6 g/dLCritically high6.1-8.2The [facility] HospitalComment on above:Performed By: #### ARCADIO, CMP #### [facility] Laboratory [address] [address] Jaciel KarenSodium [Moles/Vol]140 mmol/JQdrzoc493-860Wsr [facility] Comment on above:Performed By: #### HSTRRALEIGH, CMP #### [facility] Laboratory [address] [place] [address] Jaciel KarenUrea nitrogen [Mass/Vol]18.0 mg/dLCritically high7.0-17.0The [facility] HospitalComment on above:Performed By: #### HSTRRALEIGH, CMP #### [facility] Laboratory [address] [place] [address] Jaciel KarenUrea nitrogen/Creatinine [Mass ratio]20.5 mg/mgNoUniversity Hospitals Conneaut Medical CenterComment on above:Performed By: #### HSTRRALEIGH, CMP #### [facility] Laboratory [address] [place] [address] Jaciel KarenPROTIMEon 15-59-4034WWX Coag (PPP) [Relative time]1.00 {INR}Normal [facility] HospitalComment on above:Performed By: #### PT, PTT #### [facility] [address] [place] [address] Jaciel KarenINR GUIDELINESSEE BELOWMiddletown HospitalComment on above: Result Comment: DESIRED INR: 2.0 - 3.0 CONDITIONS NOT LISTED BELOW 2.5 - 3.5 FOR PROSTHETIC HEART VALVE REPLACEMENT 2.5 - 3.5 RECURRENT THROMBOSISPerformed By: #### PT, PTT #### [facility] [address] [place] [address] Jaciel KarenPT Coag (PPP) [Time]10.9 sNormal9.0-11.6[facility] on above:Performed By: #### PT, PTT #### [facility] [address] [place] [address] Jaciel KarenPTTon 05-44-9544lEMS Coag (Bld) [Time]26.7 zTqlhee32.3-36.2The [facility] HospitalComment on above:Performed By: #### PT, PTT #### [facility] [address] [id number] Jaciel EasonRapid Covid-19 PCR (CVDRPD)on 28-37-2279TUNC-CoV-2 (COVID-19) RNA TORO+probe Ql (Unsp spec)Not detectedNormalNOT DETECTEDThe [facility] Comment on above:Result Comment: This test is not yet approved or cleared by the [place] Food and Drug Administration (FDA). This test was developed by [employer], [place], [place]. The performance characteristics of this test were validated by [facility]. The results are not intended to be used as the sole means for clinical diagnosis or patient management decisions. [facility] is authorized under Clinical Laboratory Improvement Amendments (CLIA) to perform high- complexity testing. When diagnostic testing is negative, the possibility of a false negative should be considered in the context of a patient's recent exposures and the presence of clinical signs and symptoms consistent with SARS-CoV-2.Performed By: #### CVDRPD #### [facility] [address] [place] [address] Jaciel Lauren, HIGH SENSITIVITYon 18-49-6230JSSTRE2.4 pg/mLNormal4.0-35.5 [facility] HospitalComment on above:Result Comment: CUT-OFF POINTS HAVE BEEN ESTABLISHED BASED ON THE FOURTH UNIVERSAL DEFINITIONS OF MYOCARDIAL INFARCTION. THE UPPER REFERENCE LIMIT (URL) OF TROPONIN, DEFINED THE 99TH PERCENTILE OF cTnI DISTRIBUTION IN A REFERENCE POPULATION, HAS BEEN CONFIRMED THE DECISION THRESHOLD FOR OR DIAGNOSIS.Performed By: #### HSTROPN, CMP #### [facility] [address] [place] [address] Jaciel KarenXR CHEST 1 Von 26-03-4621IX CHEST 1 VEXAM: CHEST 1 VIEW HISTORY: Cerebrovascular accident TECHNIQUE: Chest, one view. COMPARISON: None. FINDINGS: Lungs are mildly hyperexpanded. No focal consolidation, pleural effusion, or pneumothorax. Pulmonary vasculature is within normal limits. Cardiomediastinal silhouette is normal. IMPRESSION: 1. No acute cardiopulmonary disease. Electronically authenticated by: BRENNON LEONARD Date: 2020-12-14 08:59NormalThe [facility] Vital Signs Date TimeVital SignValuePerforming TzeckxylyReppkemw72-65-8135 10:31-0400Body yqhndw853.5 cmEkarina Ferraro MD Work Phone: [facility] HealthcareSuoglsanhp88-53-4419 10:31-0400Body mass index (BMI) [Ratio]21.22 kg/b6BkmkliShawn Ferraro MD Work Phone: [facility] HealthcareTbtqvneckj86-10-8540 10:31-0400Body .62 kgShawn Ferraro MD Work Phone: [facility] HealthcareXoidozoizy66-83-2081 08:14-0400Body .5 cmFelicia Windnagel SEDIMENT REMEDIATION CONSULTANT Work Phone: [facility] HealthcareJkupsfgxgp87-95-9223 08:14-0400Body mass index (BMI) [Ratio]21.36 kg/s7Jfxglsh Windnagel SEDIMENT REMEDIATION CONSULTANT Work Phone: [facility] HealthcareKvoptrxmtk84-99-1864 08:14-0400Body selbxm83.98 kgFelicia Windnagel SEDIMENT REMEDIATION CONSULTANT Work Phone: [facility] HealthcarePpbajswgnz44-93-4006 08:14-0400Diastolic blood udsipxkj34 mm[Hg]Raimundo Windnagel SEDIMENT REMEDIATION CONSULTANT Work Phone: [address] [address]Rwlhvbgbsz39-53-6822 08:14-0400Systolic blood vudhedcz275 mm[Hg]Raimundo Windnagel SEDIMENT REMEDIATION CONSULTANT Work Phone: [facility] HealthcareVudiixuhkj14-94-4031 08:31-0400Body wjjbab620.5 cmFelicia Windnagel SEDIMENT REMEDIATION CONSULTANT Work Phone: [facility] HealthcareZbaqbcugfj10-40-9957 08:31-0400Body mass index (BMI) [Ratio]20.92 kg/h5Osozvmd Windnagel SEDIMENT REMEDIATION CONSULTANT Work Phone: [facility] HealthcareVokehjvuif68-95-1884 08:31-0400Body nufhze78.89 kgFelicia Windnagel SEDIMENT REMEDIATION CONSULTANT Work Phone: [place] [address] [address]Gjuvnghavo53-40-6986 08:31-0400Diastolic blood wyzkexae38 mm[Hg]Raimundo Windnagel SEDIMENT REMEDIATION CONSULTANT Work Phone: noLee[facility] HospitalAxcnvrafvt45-20-4884 08:31-0400Systolic blood dzjyenii610 mm[Hg]Raimundo Lomax SEDIMENT REMEDIATION CONSULTANT Work Phone: [facility] HealthcareCtoljksreh09-21-4534 07:56-0500Body .9 cmMichael Flaherty DO Work Phone: noLee[facility] Summit HospitalNpgrismlof63-30-7436 07:56-0500Body mass index (BMI) [Ratio]21.35 kg/c5Stqzxsi Flahrety DO Work Phone: [facility] HealthcareNzoxpbkajc52-11-7579 07:56-0500Body pzkgyl35.26 kgMichael Flaherty DO Work Phone: noLee's Summit HospitalClooscokvx73-93-8079 07:59-0500Body .9 cmSamantha Bain MD Work Phone: [facility] HealthcareLpjkeiaoqr13-95-3839 07:59-0500Body mass index (BMI) [Ratio]20.6 kg/y9BnuqzdwSamantha Bain MD Work Phone: [facility] HealthcareKvqtdbztsc61-29-3965 07:59-0500Body ukxrcq19.44 kgSamantha Bain MD Work Phone: [facility] HealthcareKbwjqdvxey14-83-3682 07:59-0500Diastolic blood rprpvhik35 mm[Hg]Samantha Bain MD Work Phone: [facility] HealthcareTjkabeiqmu59-76-9863 07:59-0500Systolic blood ztlzhlec679 mm[Hg]Samantha Bain MD Work Phone: [facility] HealthcareOhjnemhhuw03-78-1879 18:24-0500Diastolic blood qtbslvpe41 mm[Hg]Anthony Jessica DO Work Phone: [facility]01-29-2025 18:24-0500 Heart rate74 /minJared Jessica DO Work Phone: [facility]01-29-2025 18:24-0500 Respiratory rate16 /minJared Jessica DO Work Phone: [facility]01-29-2025 18:24-0500 SaO2% (BldA) [Mass fraction]98 %Anthony Jessica DO Work Phone: [facility]01-29-2025 18:24-0500 Systolic blood mm[Hg]Anthony Jessica DO Work Phone: [facility]01-29-2025 14:28-0500 Body aadivc408.48 cmJared Jessica DO Work Phone: 1(568)989-[address] [place], [place] 4520901-29-2025 14:28-0500 Body epfdibebyhi72 [degF]Anthony Jessica DO Work Phone: 1(910)805-[address] [place], [place] 4520901-29-2025 14:28-0500 Body .16 kgJared Jessica DO Work Phone: 1(027)631-[address] [place], [place] 4520901-21-2025 11:49-0500 Body tyclsx853.9 cmEkarina Ferraro MD Work Phone: [facility] HealthcareRggnierhhd98-84-8604 11:49-0500Body mass index (BMI) [Ratio]22.48 kg/k1JjbxsfShawn Ferraro MD Work Phone: [facility] HealthcareYbnhdbeqci02-11-6969 11:49-0500Body .98 kgShawn Ferraro MD Work Phone: [facility] HealthcareVhlbnetsqc22-13-0177 13:33-0500Body temperature 98.5 [degF]Anthony Jessica DO Work Phone: [facility]01-05-2025 13:33-0500 Diastolic blood dhtqmunm41 mm[Hg]Anthony Jessica DO Work Phone: [facility]01-05-2025 13:33-0500 Heart dtxm905 /minJared Jessica DO Work Phone: [facility]01-05-2025 13:33-0500 Respiratory rate16 /minJared Jessica DO Work Phone: [facility]01-05-2025 13:33-0500 SaO2% (BldA) [Mass fraction]97 %Anthony Ejssica DO Work Phone: [facility]01-05-2025 13:33-0500 Systolic blood mhpeqhlk055 mm[Hg]Anthony Jessica DO Work Phone: 1(168)727-[address] [place], [place] 4520901-03-2025 06:22-0500 Diastolic blood cibyvwwz62 mm[Hg]Anthony Jessica DO Work Phone: 1(590)690-[address] [place], [place] 4520901-03-2025 06:22-0500 Heart rate70 /minJared Jessica DO Work Phone: 1(771)863-[address] [place], [place] 4520901-03-2025 06:22-0500 Respiratory rate20 /minJared Jessica DO Work Phone: 1(123)166-[address] [place], [place] 4520901-03-2025 06:22-0500 SaO2% (BldA) [Mass fraction]95 %Anthony Jessica DO Work Phone: 1(231)960-[address] [place], [place] 4520901-03-2025 06:22-0500 Systolic blood mm[Hg]Anthony Jessica DO Work Phone: 1(169)216-[address] [place], [place] 4520901-03-2025 05:47-0500 Body vbffig716.48 cmJared Jessica DO Work Phone: 1(544)272-[address] [place], [place] 4520901-03-2025 05:47-0500 Body vrnvgajqens41 [degF]Anthony Jessica DO Work Phone: 1(559)139-[address] [place], [place] 4520901-03-2025 05:47-0500 Body inaqaq88.7 kgJared Jessica DO Work Phone: 1(753)548-[address] [place], [place] 4520912-11-2024 08:43-0500 Body royxet455.9 cmSamantha Bain MD Work Phone: [facility] HealthcareGdgtrajkaq10-41-0820 08:43-0500Body mass index (BMI) [Ratio]22.48 kg/q3TdxhmlxSamantha Bain MD Work Phone: 1(619)[address] [place], [place] 5764412-11-2024 08:43-0500Body xeygss35.98 kgSamantha Bain MD Work Phone: 1(585)[address] [place], [place] 5764412-11-2024 08:43-0500Diastolic blood ttexvbsn16 mm[Hg]Samantha Bain MD Work Phone: 1(640)[address] [place], [place] 5764412-11-2024 08:43-0500Systolic blood keshrkvq126 mm[Hg]Samantha Bain MD Work Phone: 1(644)[address] [place], [place] 5764410-16-2024 08:51-0400Body torqsj113.9 cmSamantha Bain MD Work Phone: 1(223)[address] [place], [place] 5764410-16-2024 08:51-0400Body mass index (BMI) [Ratio]21.92 kg/f7WtmmgbjSamantha Bain MD Work Phone: 1(002)[address] [place], [place] 5764410-16-2024 08:51-0400Body wadpos73.62 kgSamantha Bain MD Work Phone: 1(279)[address] [place], [place] 5764410-16-2024 08:51-0400Diastolic blood lftyypei96 mm[Hg]Samantha Bain MD Work Phone: 1(625)[address] [place], [place] 5764410-16-2024 08:51-0400Systolic blood mm[Hg]Samantha Bain MD Work Phone: 1(586)[address] [place], [place] 5764408-16-2024 09:48-0400Body qzjkzi473.9 cmSamantha Bain MD Work Phone: 1(028)[address] [place], [place] 5764408-16-2024 09:48-0400Body mass index (BMI) [Ratio]22.3 kg/k6TzhjdxeSamantha Bain MD Work Phone: 1(009)[address] [place], [place] 5764408-16-2024 09:48-0400Body .52 kgSamantha Bain MD Work Phone: 1(995)[address] [place], [place] 5764402-27-2023 18:13-0500Heart rate94 /min Amira Cooper [address] [place], [place] 4165002-27-2023 18:13-7437CcJ9% (BldA) [Mass fraction]94 %Amira Flaherty [address] [place], [place] 4165002-27-2023 18:13-0500 Respiratory rate16 /minMichael Flaheryt [address] [place], [place] 4165002-27-2023 18:13-0500 Diastolic blood mm[Hg]Amira Flaherty [address] [place], [place] 4165002-27-2023 18:13-0500Mean blood lheqnhlu53 mm[Hg]Amira Flaherty [address] [place], [place] 4165002-27-2023 18:13-0500 Systolic blood mm[Hg]Amira Flaherty [address] [place], [place] 4165002-27-2023 18:13-0500Body nhdfbikyqut49.06 [degF]Amira Flaherty [address] [place], [place] 4165002-27-2023 15:11-0500Heart rate92 /minMichael Flaherty [address] [place], [place] 4165002-27-2023 15:11-4200FhZ7% (BldA) [Mass fraction]97 %Amira Flaherty [address] [place], [place] 4165002-27-2023 15:10-0500 Diastolic blood gzkzejid67 mm[Hg]Amira Flaherty [address] [place], [place] 4165002-27-2023 15:10-0500Mean blood ufspibit79 mm[Hg]Amira Flaherty [address] [place], [place] 4165002-27-2023 15:10-0500 Systolic blood luoepanu592 mm[Hg]Amira Flaherty [address] [place], [place] 4165002-27-2023 15:10-0500Blood Pressure LocationMichael Cooper [address] [place], [place] 4165002-27-2023 15:10-0500Body jftklirrbuz27.52 [degF]Amira Cooper [address] [place], [place] 4165002-27-2023 14:24-0500Heart rate89 /minMichael Cooper [address] [place], [place] 4165002-27-2023 14:24-0519JiM6% (BldA) [Mass fraction]100 %Amira Cooper [address] [place], [place] 4165002-27-2023 14:23-0500 Diastolic blood abssssrx52 mm[Hg]Amira Cooper [address] [place], [place] 4165002-27-2023 14:23-0500Mean blood otigtfpp316 mm[Hg]Amira Cooper [address] [place], [place] 4165002-27-2023 14:23-0500 Systolic blood gfzkjvas378 mm[Hg]Amira Cooper [address] [place], [place] 4165002-27-2023 14:23-0500Body otuuxihofte23.7 [degF]Amira Cooper [address] [place], [place] 4165002-27-2023 14:17-0500Blood Pressure LocationMicesme Cooper [address] [place], [place] 4165002-27-2023 14:17-0500Body diipimihpev39.52 [degF]Amira Cooper [address] [place], [place] 4165002-27-2023 14:17-0500Mean blood plfwekva00 mm[Hg]Amira Cooper [address] [place], [place] 4165002-27-2023 14:17-0500 Respiratory rate10 /minMichael Flaherty [address] [place], [place] 4165002-27-2023 14:08-0500Blood Pressure LocationMicesme Flaherty [address] [place], [place] 4165002-27-2023 14:08-0500Mean blood yawtfjvi767 mm[Hg]Amira Flaherty [address] [place], [place] 4165002-27-2023 14:08-0500 Respiratory rate10 /minMichael Flaherty [address] [place], [place] 3762002-27-2023 13:53-0500Mean blood xlqyvqhr02 mm[Hg]Amira Flaherty [address] [place], [place] 4165002-27-2023 13:53-0500 Respiratory rate12 /minMichael Flaherty [address] [place], [place] 4165002-27-2023 13:23-0500Body wveamkyrttd84.34 [degF]Amira Flaherty [address]02-27-2023 13:20-0500 Respiratory rate7 /minMichael Flaherty [address] [place], [place] 3762002-27-2023 13:15-0500 Respiratory rate8 /minMichael Flaherty [address] [place], [place] 4165002-27-2023 09:45-0500Heart rate88 /minMichael Flaherty [address] [place], [place] 4165002-27-2023 09:38-0500Body fobsioinjmg35.88 [degF]Amira Flaherty [address]02-06-2023 07:53-0500 Diastolic blood yukvedjq38 mm[Hg]Amira Flaherty [address] [place], [place] 4165002-06-2023 07:53-0500Heart rate72 /minMichael Flaherty [address] [place], [place] 4165002-06-2023 07:53-0500Mean blood mm[Hg]Amira Flaherty [address] [place], [place] 4165002-06-2023 07:53-0500 Systolic blood ggpjqkbo642 mm[Hg]Amira Flaherty [address]02-06-2023 07:53-0500Heart rate92 /minMichael Cooper [address] [place], [place] 4165002-06-2023 07:53-7905XlG4% (BldA) [Mass fraction]97 %Amira Cooper [address] [place], [place] 4165002-06-2023 07:53-0500Blood Pressure LocationMicesme Flaherty [address]02-06-2023 07:53-0500Body iypwbvxutrv17.88 [degF]Amira Cooper [address]02-06-2023 07:52-0500 Diastolic blood mm[Hg]Amira Cooper [address] [place], [place] 3762002-06-2023 07:52-0500Mean blood mm[Hg]Amira Cooper [address]02-06-2023 07:52-0500 Systolic blood okljfoju683 mm[Hg]Amira Cooper [address]02-06-2023 07:52-0500 Respiratory rate16 /minMichael Cooper [address] [place], [place] 4165002-06-2023 07:52-0500Blood Pressure LocationMicesme Flaherty [address] [place], [place] 4165002-06-2023 07:31-0500Body klmikkfwems32.88 [degF]Amira Cooper [address] [place] [address] Encounters Encounter DateEncounter TypeCare ProviderFacilityStart: 05-26-2025 End: 13-66-1763kerrgkwiwqFMKFGD J HEMEYERNot AvailableStart: 05-02-2025 End: 18-50-7700Frvgasisrael Ferraro MD Work Phone: [facility] [address] Family MedicineStart: 05-02-2025 End: 95-37-7604Jtrggjisrael Ferraro MD Work Phone: [facility] [address] [facility] MedicineStart: 05-02-2025 End: 52-60-4503Yhdvap outpatient visit 15 minutesShawn Ferraro MD Work Phone: [facility] [address] [facility] MedicineComment on above:Acute right ankle pain; Right ankle swellingStart: 05-02-2025 End: 41-57-9213cybxeytjrpLOYVWD J HEMEYERNot AvailableStart: 12-08-2024 End: 75-77-9463Jstjie flowsheetFelicia C Windnagel SEDIMENT REMEDIATION CONSULTANT Work Phone: noms BM NEUROLOGYStart: 12-08-2024 End: 95-26-0403Trhzbt flowsheetFelicia C Windnagel SEDIMENT REMEDIATION CONSULTANT Work Phone: noms NEUROLOGYStart: 12-08-2024 End: 50-45-4513Vcgzkk outpatient visit 15 minutesFelicia C Windnagel SEDIMENT REMEDIATION CONSULTANT Work Phone: [facility]oms SWS NEURComment on above:Parkinson's disease 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 (CMS/HCC) (Primary Dx); PHN (postherpetic neuralgia) (CMS/HCC)Start: 12-08-2024 End: 35-38-9942tkokkmcchuGEOBRED C WINDNAGELNot AvailableStart: 11-03-2024 End: 48-08-4922Mihvpn outpatient visit 25 minutesFelicia C Windnagel SEDIMENT REMEDIATION CONSULTANT Work Phone: [facility]oms SWS NEURComment on above:PHN (postherpetic neuralgia) (CMS/HCC) (Primary Dx); Parkinson's disease 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 (CMS/HCC) Start: 11-03-2024 End: 68-99-3886lwveknubaeDXFFMRY C WINDNAGELNot AvailableStart: 10-14-2024 End: 12-87-2811Dfzipv flowsheetMichael T Flaherty DO Work Phone: noms ORTHOStart: 10-14-2024 End: 81-96-2664Hvkmnm flowsheetMichael T Flaherty DO Work Phone: noMS ORTHOStart: 10-14-2024 End: 86-02-0828Zciaiol encounter procedureAmira Walsh Flaherty DO Work Phone: [facility]oms NB ORTHOComment on above:Left knee pain, unspecified chronicity (Primary Dx); History of total right knee replacementStart: 10-14-2024 End: 10-90-8185qtvzusbveiBSVVLOH Nico POWERSNot AvailableStart: 10-10-2024 End: 27-94-4146Zzbfighup encounterLyn Villalobos SEDIMENT REMEDIATION CONSULTANT Work Phone: [facility] NEURO 210Start: 09-27-2024 End: 91-65-9218Uzyozw outpatient visit 25 minutesBrekeshawn Bain MD Work Phone: [facility] SWS NEURComment on above:PHN (postherpetic neuralgia) (CMS/HCC) (Primary Dx)Start: 09-27-2024 End: 98-38-4227gfykvtqqctMZAABVM W BAUERNot AvailableStart: 09-27-2024 End: 92-90-5693Casxcn flowsDinorah Bain MD Work Phone: noms NEUROLOGYStart: 09-27-2024 End: 29-34-7841Wmvqor flowsDinorah Bain MD Work Phone: noms NEUROLOGYStart: 09-22-2024 End: 51-35-3721Sgfqgkvvx department patient visitJared Jessica DO Work Phone: [facility]-Emergency Room Work Phone: Start: 09-20-2024 End: 35-17-3679Iqysuqqfz encounterLyn Villalobos SEDIMENT REMEDIATION CONSULTANT Work Phone: noms [facility] NEURO 210Start: 09-14-2024 End: 58-03-7130Tppnai flowsShanel Ferraro MD Work Phone: [facility] CI FM 100Start: 09-14-2024 End: 17-25-6656Bqfrns Tennille Ferraro MD Work Phone: [facility] CI FM 100Start: 09-14-2024 End: 94-45-6106Ioaerx outpatient visit 25 minutesShawn Ferrrao MD Work Phone: [facility] CI FM 100Comment on above:Post herpetic neuralgia (CMS/HCC) (Primary Dx); Herpes zoster iritis of left eye; Body mass index (BMI) 22.0-22.9, adultStart: 09-14-2024 End: 64-95-9794fdqzhfzuscVZOSII J HEMEYERNot AvailableStart: 08-29-2024 End: 84-72-4001Mxcbqamlb department patient visitJaandre Lopez DO Work Phone: [facility]-Emergency Room Work Phone: Start: 60-87-7279Obi-patient / Non-visitJared Jessica DO Work Phone: [facility] Work Phone: Start: 08-27-2024 End: 79-07-2281Cyiogwgcq department patient visitJaandre Lopez DO Work Phone: [facility]-Emergency Room Work Phone: Start: 08-04-2024 End: 06-98-9267Hmvxwo Merlyn Bain MD Work Phone: noms NEUROLOGYStart: 08-04-2024 End: 26-27-9214Mvjpev Merlyn Bain MD Work Phone: noms NEUROLOGYStart: 08-04-2024 End: 27-39-1615Hpnaat outpatient visit 25 minutesSamantha Bain MD Work Phone: [facility] SWS NEURComment on above:Primary osteoarthritis of right foot (Primary Dx); Parkinson's disease 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 (CMS/HCC) Start: 08-04-2024 End: 39-32-5496cnrfrxxvdgDDKCHJC W BAUERNot AvailableStart: 06-09-2024 End: 28-59-2462Boxmmf Merlyn Bain MD Work Phone: noms NEUROLOGYStart: 06-09-2024 End: 62-70-5098Ivoiwx Merlyn Bain MD Work Phone: noms NEUROLOGYStart: 06-09-2024 End: 18-14-0693Fabpkl outpatient visit 25 minutesSamantha Bain MD Work Phone: [facility] SWS NEURComment on above:Parkinson's disease 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 (CMS/HCC)Start: 06-09-2024 End: 95-72-3155afzaejteewLVZTTFF W BAUERNot AvailableStart: 05-02-2024 End: 56-26-3691ByzyfbVxcavqn W Bauer MD Work Phone: [facility] SWS NEURComment on above:Parkinson's disease 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 (CMS/HCC)Start: 04-09-2024 End: 61-69-1060Zgntsp outpatient new 45 minutesSamantha Bain MD Work Phone: [facility] SWS NEURComment on above:Parkinson's disease 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 (CMS/HCC) (Primary Dx); Right-sided muscle weaknessStart: 10-21-2022 End: 97-42-6267wjjidbzmgkZkwdmbt T PowersFacility:FTMCStart: 10-21-2022 End: 22-34-0043Qwnjillia to same day surgery centerAmira T Cooper [facility] Start: 53-80-2255fhgfynawxdWvneumh T Flaherty Facility:FTMCStart: 09-30-2022 End: 64-51-4821nuntauskneNrrsjra T PowersFacility:FTMCStart: 09-30-2022 End: 34-24-4827Iuqnexj encounter procedureAmira T GreenSQL [facility] Start: 06-10-2022 End: 16-66-0567Fdq-admission assessmentBrennan Limon [facility] Start: 12-14-2020 End: 77-82-6697zayqnaapqhFM AMANDA ALMARAZFacility:H1 Procedures DateProcedureProcedure DetailPerforming ClinicianStart: 10-14-2024 End: 25-92-5026Fcjzxijngn examination knee 3 viewsMichael T [employer]SQL DO Work Phone: Start: 65-54-1691UZ of head without contrastJared Jessica DO Work Phone: Start: 50-44-9894Hgkdd chest X-rayJared Jessica DO Work Phone: Start: 27-40-3298Mynqk knee replacementMichael GreenSQL ColonoscopyMicBrandYourself Plan of Treatment DateCare ActivityDetailAuthorStart: 17-36-1480Qmitkhawwkzo Vaccine: 65+ Years (1 of 1 - PCV)Pneumococcal Vaccine: 65+ Years (1 of 1 - PCV)[facility] HealthcareComment on above:Postponed from 1997 (Patient Refused)Start: 97-34-5215Uvthjspfx vaccinationInfluenza Vaccine (#1)[facility] HealthcareComment on above:Postponed from 04/25/2025 (Patient Refused)Start: 06-09-2025 End: 79-80-4074Oordqfx encounter procedureNOMS SWS NEURStart: 05-02-2025 End: 95-45-1752Rxkwmbd encounter /08/2025 10:45 AM EDT Office Visit NADEEN Downing [facility] Medicine [address] [place] [address] Shawn Ferraro MD [address] [facility] [address] [place], [place] [phone] (Work) (Fax) ArrivedNOMS [place] 100 Family MedicineComment on above:ArrivedStart: 56-72-7198Knmwdnuvd vaccinationLAKEVIEW HOSPITAL HealthcareStart: 12-08-2024 End: 88-73-0904Exdyryj encounter procedureNOMS [facility] NEURComment on above:Arrived Start: 11-03-2024 End: 16-43-5699Ngzfjph encounter tgjuloxdp21/12/2025 8:30 AM EDT Office Visit [facility] NEUR [address] [facility] [address] [place] [address] Raimundo Lomax SEDIMENT REMEDIATION CONSULTANT [address] [facility] [address] [place] [id number] [facility] NEURStart: 10-14-2024 End: 07-79-3917Bizmwiw encounter procedureNOMS NB ORTHOComment on above:History of total right knee replacement (Primary Dx)Start: 09-27-2024 End: 08-76-6326Wqxaaex encounter eljpjphrj61/03/2025 3:20 PM EST Office Visit [facility] NEUR [address] [facility] [address] [place] [address] Samantha Bain MD [address] [facility] [address], [place] [id number] ArrivedNOSCRIPPS [facility] NEURComment on above: ArrivedStart: 13-68-7386Uczad [facility] Daytontart: 89-35-7914Lerkmvoz identified in Urine by CultureUrine [facility] Centertart: 09-14-2024 End: 04-71-1564Szqqwoc encounter kyziayfbd19/21/2025 11:45 AM EST Office Visit [facility] [address] [place] [address] Shawn Ferraro MD [address] [place] [address] (Fax) ArrivedNOMS CI FM 100Comment on above: ArrivedStart: 31-52-0298Bmjrv chest X-rayXR chest 1V portableTriHealthtart: 77-40-9528YM Chest Single viewTriHealthtart: 08-04-2024 End: 85-56-2004Ydqalwt encounter procedureNOMS SWS NEURComment on above:Arrived Start: 06-09-2024 End: 53-29-8094Ykxpdgu encounter procedureNOMS SWS NEURComment on above:Arrived Start: 61-00-9197Xmynvtmtt vaccinationInfluenza Vaccine (#1)[facility] Start: 04-15-2024 End: 51-98-1368Ldohvdfkoffo / ancillary services jgxistnnbi90/22/2024 8:00 AM EDT Ancillary Procedure [facility] FNR MR [address] [place] [address] CWAQ FNR MRStart: 04-09-2024 End: 95-44-1634XL Brain WO and W contrast IVMR brain w and wo contrast routine Imaging Routine Right-sided muscle weakness Parkinson's disease 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 Expected: 04/09/2024, Expires: 04/09/2025[facility] Work Phone: Comment on above:Expected: 04/09/2024, Expires: 04/09/2025Start: 87-06-6787Tqmqnqraqfhs Vaccine: 65+ Years (1 of 1 - PCV) Pneumococcal Vaccine: 65+ Years (1 of 1 - PCV)[facility] HealthcareStart: 1997 Pneumococcal Vaccine: 65+ Years (1 of 1 - PCV)Pneumococcal Vaccine: 65+ Years (1 of 1 - PCV)[facility] HealthcarePatient EducationSub[facility] Work Phone: Patient referralSub[facility] Work Phone: Payers DatePayer CategoryPayerPolicy [id number] 2024Medicare (Managed Care) [id number] HEALTH [facility] [id number] 2023-Present [address] [address] [place] [id number] [id number] Health [id number] [id number] 2.16.840.1.020306.3.57[id number] 2..840.1.762494.3.57[id number] 2..840.1.758406.3.57[id number] 2.16.840.1.051864.3.57[id number] 2..840.1.175453.3.57[id number] 2.16.840.1.596572.3.57[id number] 2.16.840.1.790685.3.57[id number] 2.16.840.1.572428.3.57[id number] 2.16.840.1.439005.3.57[id number] 2.16.840.1.738871.3.57[id number] 2.16.840.1.643168.3.57[id number] 2.840.1.910087.3.57[id number] 2.840.1.642158.3.57[id number] 2.840.1.475191.3.57[id number] 2.840.1.56[id number] 2.840.1.351563.3.579.2.531 [id number] 2.840.1.6[id number] 2.0.1.470173.3.579.2.531 Social History DateTypeDetailFacilityTobacco smoking statusTrumbull Regional Medical Centertart: 09-04-2023 End: 99-85-5277Imb Assigned At BirthFemalOhioHealth Grady Memorial Hospitaltart: 02-20-2023 End: 14-86-9966Pxgoern smoking status NHISNever smoked tobaccoLAKEVIEW HOSPITAL Healthcare Start: 67-14-0487Eoctmgs use and exposureSmokeless tobacco non-userNOMI HealthcareStart: 04-09-2024 End: 36-06-0539Pzzownfsp beverage intakeLifetime non-drinker (finding)[facility] HealthcareStart: 09-04-2023 End: 91-55-9849Vwkvnpk of Social functionNOMS HealthcareHow often to you have a drink containing alcohol?NeverN[facility]S HealthcareHow many standard drinks containing alcohol do you have on a typical day?1 or 2N[facility] HealthcareStart: 09-03-2023 Alcohol CommentCaffeine intake : 1 coffee per weekNOMI HealthcareStart: 48-99-3566Yfv assigned at birthNot on fileNOMI HealthcareStart: 08-27-2024 End: 35-37-7379DjxLzzjac (finding)TriHealthtart: 67-73-6260Vtq Assigned At [facility] Medical Equipment Procedure CodeEquipment CodeEquipment Original TextEquipment IdentifierDatesKNEE TOTAL ARTHROPLASTY Amira Flaherty DO 10/21/22 Non Biological Knee R {[id number]{[id number]{[id number] FDAStart: 10-21-2022 Functional Status YhlxGglxhxfdzpDbrlsrTfvemxdv50-07-6960Eegewgr Health Questionnaire 2 item (PHQ- 2) [Reported][facility] Yusodpdjzl29-05-2013Umcwztslkf StatusMetroHealth [facility] Clinical Notes 05-27-2022 to 05-02-2025 Note Date & HyqzMdzcZapnpxej42-83-1910 History of Present illness Narrative* Shawn Ferraro MD - 05/02/2025 10:45 AM EDT Images from the original note were not included. Patient ID: Gela Fenton is a 80 y.o. female who presents for: Ankle Pain Patient complains of right ankle pain. Onset of the symptoms was several days ago. Inciting event: none known. Current symptoms include: ability to bear weight, but with some pain, stiffness, swelling, and worsening symptoms after a period of activity. Patient has had no prior ankle problems. Previous visits for this problem: none. Evaluation to date: none. Treatment to date: none. Review of Systems No numbness or tingling. Objective The patient is pleasant and in no acute distress The patient has good eye contact and clear speech The right ankle does not demonstrate any significant swelling, calor or rubor. She does walk with aminimal limp. The calf is nontender. The Achilles is intact and nontender. There is some minimal tenderness at the insertion of the Achilles that is not consistent with the pain she is complaining of. Compression of both malleoli is nontender. Compression of the forefoot is nontender palpation of the base of the5th metatarsal is nontender. Working around the lateral ankle is nontender medially she has some tenderness. She has a little bit of tenderness to Tinel's over the tarsal tunnel, but no neurologic sensation or radiation. There are some varicose veins in this region. No tenderness in the bottom of the heel. Dorsiflexion and plantar flexion were nontender. Inversionand eversion were essentially nontender. She is otherwise grossly cardiovascular intact. 12/08/2024 8:14 AM 11/03/2024 8:31 AM 10/14/2024 7:56 AM 09/28/2024 7:59 AM Vitals BMI 21.36 kg/m2 20.92 kg/m2 21.35 kg/m2 20.6 kg/m2 BSA (m2) 1.52 m2 1.51 m2 1.49 m2 1.46 m2 Systolic 158 142 128 Diastolic 70 80 82 Height (in) 5' 2 5' 2 5' 1 5' 1 Weight (lb) 116.8 114.4 113 109 Visit Report Report Report Report No Known Allergies Current Outpatient Medications on File Prior to Visit Medication Sig Dispense Refill Ascorbic Acid (vitamin C) 1000 MG tablet 1 (one) time each day at the same time atropine 1 % ophthalmic solution Administer 1 drop into the left eye in the morning and 1 drop before bedtime. b complex vitamins capsule Take 1 capsule by mouth Daily calcium citrate (Calcitrate) 950 (200 Ca) MG tablet Take 475 mg by mouth in the morning and 475 mg before bedtime. carBAMazepine XR (TEGretol XR) 100 MG 12 hr tablet Take 1 tablet (100 mg) by mouth in the morning and 1 tablet (100 mg) before bedtime. Do not crush, chew, or split.. (Patient not taking: Reported on12/08/2024) 60 tablet 2 carbidopa-levodopa (Sinemet) 10-100 MG tablet Take 1 tablet by mouth in the morning and 1 tablet inthe evening and 1 tablet before bedtime. 90 tablet 11 cholecalciferol (Vitamin D-3) 125 MCG (5000 UT) capsule Take 5,000 Units by mouth Daily dexAMETHasone (Decadron) 2 MG tablet Take 1 tablet (2 mg) by mouth Daily for 7 days (Patient not taking: Reported on 12/08/2024) 7 tablet 0 difluprednate (Durezol) 0.05 % ophthalmic solution Administer 1 drop into the left eye (Patient nottaking: Reported on 12/08/2024) erythromycin (Romycin) 5 MG/GM ophthalmic ointment Apply to left eye 3 (three) times a day (Patientnot taking: Reported on 12/08/2024) KRILL OIL PO Take 1 capsule by mouth Daily moxifloxacin (Vigamox) 0.5 % ophthalmic solution Administer 1 drop into the left eye in the morningand 1 drop at noon and 1 drop in the evening and 1 drop before bedtime. (Patient not taking: Reported on 12/08/2024) Multiple Vitamin (Multivitamin Adult) tablet 1 (one) time each day at the same time Polyvinyl Alcohol-Povidone (Clear Eyes Natural Tears) 5-6 MG/ML solution Administer 2 drops into affected eye(s) every 4 (four) hours if needed (dry eye) 15 mL 3 prednisoLONE acetate (Pred-Forte) 1 % ophthalmic suspension Administer 1 drop into the left eye Seeadministration instructions Every 2 hours pregabalin (Lyrica) 25 MG capsule Take 1 capsule (25 mg) by mouth in the morning and 1 capsule (25 mg) before bedtime. (Patient not taking: Reported on 12/08/2024) 60 capsule 3 thiamine (Vitamin B-1) 100 MG tablet Take 1 tablet (100 mg) by mouth Daily 90 tablet 3 No current facility-administered medications on file prior to visit. 1. Acute right ankle pain Acute problem without known specific injury. The swelling component does seem to be improving per the patient. We did discuss further diagnostic evaluation versus conservative therapy and she would prefer conservative therapy for now. She knows in the next week or 2 if she is just not improving shecan call for x-ray. She has not really been taking the meloxicam. I have asked her to restart that and take it for 2 full weeks regularly. We discussed being careful in what she is walking and she does have good shoes on today but barefoot and sandals may worsen her pain. 2. Right ankle swelling As above Please Note: Portions of this chart may have been created using voice recognition software. Occasionally a wrong-word or sound-like substitutions may have occurred due to inherent limitations of the voice recognition software. Please read the chart carefully and recognize, using context, where the substitutions may have occurred. documented in this encounterCitizens Memorial [id number] History of Present illness Narrative* Amira Flaherty DO - 10/14/2024 8:00 AM EST Post op right TKA annual visit: The patient is seen and evaluated for annual total knee arthroplasty visit. Did well with the hospital stay. No anesthesia problems reported. Happy with the care provided by staff, physical therapy and our office. Pain is appropriately controlled. Denies chest pain or shortness of breath or palpitations. Continues to be consistent and diligent with home exercise program as well as physical therapy modalities. Physical therapy reports are reviewed. Physical Exam: The total knee is clean, dry and intact. Mild swelling as expected. Has a stable arc of motion without mechanical symptoms. No instability of the prosthesis. No rash, infection or DVT. The calf is supple. Gait is assisted with stiffness with mild antalgic component. Image Results: Xrays taken in the office today saved to the permanent record, AP, sunrise and lateral weightbearing films, show stable position and alignment of the right TKA prosthesis. No sign of loosening, fracture or infection. Left knee moderate OA Assessment: S/P right total knee arthroplasty-annual post-operative visit Left knee oa Treatment Plan: The nature of the findings were discussed at length. Continuance of regular exercise, weight management and fall precautions reviewed. assistant terminal manager antibiotic prophylaxis for dental or invasive work were reviewed. Numerous questions were answered. Follow-up in 1 year for repeat xray and exam, sooner if concerned. The patient is discharged in stable condition. documented in this encounterCitizens Memorial [id number] Telephone encounter Note* Telephone Encounter - Lyn Villalobos NP - 10/10/2024 8:11 PM EST Daughter calls stating that mom/patient still not able to open her eye from her shingles. Asking about PT. Concerned about her mental health. She is keeping her eyes closed day and night. Asking for suggestions. Pain is less after block given at last appointment. Less severe pain, still achy pain but she can live with that. [facility] Work Phone: [phone] 187-971102-16-2025 Miscellaneous Notes* Telephone Encounter - Lyn Villalobos NP - 10/10/2024 8:11 PM EST Daughter calls stating that mom/patient still not able to open her eye from her shingles. Asking about PT. Concerned about her mental health. She is keeping her eyes closed day and night. Asking for suggestions. Pain is less after block given at last appointment. Less severe pain, still achy pain but she can live with that. documented in this encounterCitizens Memorial [id number] History of Present illness Narrative* Samantha Bain MD - 09/27/2024 3:20 PM EST Images from the original note were not included. CHIEF COMPLAINT REASON FOR VISIT: Follow up HPI: Gela Fenton is a 79 y.o. female who presents for a follow up. She has not been able to openher eyes much. States she has been in bed a lot of the time. Has not noticed much of the shakiness.But hard to tell. States she does not have any shingles on her cornea anymore. States the eye doctor does not see a clinical reason why she cannot open her eyes. States she does not have the severe pain like she did. She had the burning pain but has not had it lately. She has used tylenol PM to help. States she is not at the itching stage. She is still on the sinement 1/2 tablet TID and eye drops. No other medications. CURRENT MEDICATIONS: ALLERGIES/DISCONTINUE MEDICATIONS Current Outpatient Medications Medication Instructions Ascorbic Acid (vitamin C) 1000 MG tablet Every 24 hours atropine 1 % ophthalmic solution 1 drop, 2 times daily b complex vitamins capsule 1 capsule, Daily calcium citrate (CALCITRATE) 475 mg, 2 times daily carbidopa-levodopa (Sinemet) 10-100 MG tablet 1 tablet, Oral, 3 times daily cholecalciferol (VITAMIN D-3) 5,000 Units, Daily difluprednate (Durezol) 0.05 % ophthalmic solution 1 drop erythromycin (Romycin) 5 MG/GM ophthalmic ointment 3 times daily KRILL OIL PO 1 capsule, Daily moxifloxacin (Vigamox) 0.5 % ophthalmic solution 1 drop, 4 times daily Multiple Vitamin (Multivitamin Adult) tablet Every 24 hours prednisoLONE acetate (Pred-Forte) 1 % ophthalmic suspension 1 drop, See admin instructions pregabalin (LYRICA) 25 mg, Oral, 2 times daily No Known Allergies There are no discontinued medications. PAST MEDICAL HISTORY: SURGICAL/SOCIAL/FAMILY HISTORY DEPRESSION SCREEN: Past Medical History: Diagnosis Date Osteopenia per dexascan Right-sided Perez's palsy Skin cancer 10/21/2022 [facility] Past Surgical History: Procedure Laterality Date SKIN CANCER EXCISION 2014 Facial SKIN CANCER EXCISION 06/2023 Facial, TOTAL KNEE ARTHROPLASTY Right 10/21/2022 [facility] [place] History Tobacco Use Smoking status: Never Smokeless tobacco: Never Vaping Use Vaping status: Never Used Substance Use Topics Alcohol use: Never Comment: Caffeine intake : 1 coffee per week Drug use: Never Family History Problem Relation Name Age of Onset Colon cancer Father No Known Problems Sister No Known Problems Brother No Known Problems Daughter No Known Problems Son Diabetes type II Maternal Grandfather Depression: Not at risk (09/04/2023) PHQ-2 PHQ-2 Score: 0 REVIEW OF SYMPTOMS: Review of Systems Constitutional: Negative for chills, diaphoresis, fatigue and fever. HENT: Negative for ear pain, tinnitus and trouble swallowing. Eyes: Negative for photophobia and visual disturbance. Respiratory: Negative for cough and shortness of breath. Cardiovascular: Negative for palpitations and leg swelling. Gastrointestinal: Negative for abdominal pain and nausea. Genitourinary: Negative for difficulty urinating and urgency. Musculoskeletal: Negative for arthralgias, back pain, myalgias, neck pain and neck stiffness. Neurological: Positive for tremors. Negative for weakness, light-headedness and numbness. Psychiatric/Behavioral: Negative for agitation, confusion and suicidal ideas. OBJECTIVE: 09/28/2024 7:59 AM 09/14/2024 11:49 AM 08/04/2024 8:43 AM Vitals BMI 20.6 kg/m2 22.48 kg/m2 22.48 kg/m2 BSA (m2) 1.46 m2 1.52 m2 1.52 m2 Systolic 128 130 Diastolic 82 82 Height (in) 5' 1 5' 1 5' 1 Weight (lb) 109 119 119 Visit Report Report Report EXAM: Neurological Exam Mental Status Awake, alert and oriented to person, place and time. Oriented to person, place and time. Recent andremote memory are intact. Speech is normal. Language is fluent with no aphasia. Attention and concentration are normal. Cranial Nerves CN II: Visual acuity is normal. Visual walker full to confrontation. CN III, IV, : Extraocular movements intact bilaterally. Normal lids and orbits bilaterally. Pupils equal round and reactive to light bilaterally. CN V: Facial sensation is normal. CN VII: Full and symmetric facial movement. CN VIII: Hearing is normal. CN XII: Tongue midline without atrophy or fasciculations. Motor Normal muscle bulk throughout. Normal muscle tone. Right Left Wrist flexion 5 5 Wrist extension 5 5 Right Left Deltoid 5 5 Biceps 5 5 Triceps 5 5 Wrist flexor 5 5 Wrist extensor 5 5 Glutei 5 5 Iliopsoas 5 5 Quadriceps 5 5 Gastrocnemius 5 5 Anterior tibialis 5 5 Posterior tibialis 5 5 Sensory Light touch is normal in upper and lower extremities. Pinprick is normal in upper and lower extremities. Vibration is normal in upper and lower extremities. Reflexes Right Left Brachioradialis 2+ 2+ Biceps 2+ 2+ Patellar 2+ 2+ Achilles 2+ 2+ Right Plantar: downgoing Left Plantar: downgoing Right pathological reflexes: Manolo's absent. Ankle clonus absent. Left pathological reflexes: Manolo's absent. Ankle clonus absent. Coordination Gvzsgj-zh-coyd, rapid alternating movements and omrj-ko-gwla normal bilaterally without dysmetria. Gait Normal casual, toe, heel and tandem gait. Romberg is absent. PROCEDURE: NONE ASSESSMENT AND PLAN: Gela Fenton is a 79 y.o. female who presents with tremor in the right upper & lower extremity. Possible etiologies include benign essential tremor, extrapyramidal symptoms secondary to medications, or a neurodegenerative process such as Parkinson's disease. An additional consideration would be tremor secondary to a metabolic process or a psychogenic tremor from stress. Diagnoses and all orders for this visit: PHN (postherpetic neuralgia) ([facility]) - pregabalin (Lyrica) 25 MG capsule; Take 1 capsule (25 mg) by mouth in the morning and 1 capsule (25 mg) before bedtime. documented in this encounterCitizens Memorial [id number] Radiology Diagnostic study [facility] [place] [address] [place] [address] CT Scan Report Signed Patient: Gela Fenton MR#: [id number] : 1945 Acct:[id number] Age/Sex: 79 / F ADM Date: 5 Loc: ER Room: Type: [facility] ER Attending Dr: Copies to: Amira Sparks MD~ Ordering Provider: Amira Sparks MD Date of Service: 09/22/24 CT/CT head/brain wo con: altered mental status Unenhanced head CT TECHNIQUE: Contiguous axial imaging of the head. The CT exam was performed usingone or more the following dose reduction techniques: Automated exposure control,adjustment of the MA and/or Kv according to patient size, or use of the iterative reconstruction technique. COMPARISON: None HISTORY: Altered mental status. VENTRICLES: Within normal limits ATROPHY: None BRAIN PARENCHYMA: Adequate rg-white matter differentiation identified. HEMORRHAGE: None HERNIATION: No mass effect or herniation INFARCTION: No recent vascular distribution infarction is seen. EXTRA-AXIAL FLUID COLLECTIONS None MIDBRAIN: Unremarkable CLINTON: Unremarkable MEDULLA: Unremarkable SINUSES: Unremarkable ORBITS: Grossly unremarkable MASTOIDS: Unremarkable BONY STRUCTURES Intact ADDITIONAL FINDINGS: CT/CT head/brain wo con IMPRESSION: No acute findings. Impression dictated by: Lawson Mckeon M.D.09/22/2024 4:32 PM Dictation Location: [place] [address] Transcribed By: [facility] 09/22/24 1632 Dictated By: Lawson Mckeon DO 09/22/24 1631 Signed By: 09/22/24 [facility]01-27-2025 Telephone encounter Note* Telephone Encounter - Lyn Villalobos, PINO - 09/20/2024 9:09 PM EST Daughter calls, Kiersten. My phone number is [phone] Bain and she was diagnosed august 25 with shingles and we are running into some issues. We do not know if the Parkinson's medicine that she is on would interfere or is causing anything, you know, bad combination with thethis anti viral that she is on, the antiviral is Valcyclovir 1gm tablet. She is supposed to be taking these 3 times a day and we have noticed that she is having some hallucinations going on. Sometimes there is some slurred speech we have been to her family . He put her on some pain meds to help with the the shingles pain because it is on the left side of her face and it was in her eye, but the eye drNatalio has cleared her of any vision problems and any lesions on the eye. So any insight into this would be greatly appreciate it. Thank you. [facility] Work Phone: [phone] 284-718701-27-2025 Miscellaneous Notes* Telephone Encounter - Lyn Villalobos NP - 09/20/2024 9:09 PM EST Daughter calls, Kiersten. My phone number is [phone] Bain and she was diagnosed august 25 with shingles and we are running into some issues. We do not know if the Parkinson's medicine that she is on would interfere or is causing anything, you know, bad combination with thethis anti viral that she is on, the antiviral is Valcyclovir 1gm tablet. She is supposed to be taking these 3 times a day and we have noticed that she is having some hallucinations going on. Sometimes there is some slurred speech we have been to her family . He put her on some pain meds to help with the the shingles pain because it is on the left side of her face and it was in her eye, but the eye has cleared her of any vision problems and any lesions on the eye. So any insight into this would be greatly appreciate it. Thank you. documented in this encounterCitizens Memorial [id number] History of Present illness Narrative* Shawn Ferraro MD - 09/14/2024 11:45 AM EST Images from the original note were not included. Patient ID: Gela Fenton is a 79 y.o. female who presents for: She has 2 family members with her. Pt has shingles in her left eye. She has been following with [facility]. I have pulled in her new meds. She is on antiviral for an additional 14 days. She is having pretty severe and sharp pain on the left side of her forehead. She states the face will get really hot as well. She also describes the pain is burning. Review of Systems Constitutional: Negative for chills and fever. Respiratory: Negative for cough, shortness of breath and wheezing. Cardiovascular: Negative for chest pain and palpitations. Gastrointestinal: Negative for abdominal pain. Genitourinary: Negative for frequency and urgency. Objective The patient is pleasant and in no acute distress , but obviously in pain. The patient has Poor eye contact due to the burning in her eyes she keeps her eyes closed. She willlook at me if directed. She does have clear and appropriate speech The left forehead and down into the upper eyelid has a violaceous this from the healing shingles. Idid not examine the eye formally as she is under Ophthalmology is care. The occipital notches are nontender to palpation. Visit Vitals Ht 5' 1 Wt 119 lb BMI 22.48 kg/m OB Status Postmenopausal Smoking Status Never BSA 1.52 m PDMP reviewed, Shawn Ferraro MD on 09/14/2024 12:13 PM Appears as expected. No Known Allergies Current Outpatient Medications on File Prior to Visit Medication Sig Dispense Refill carbidopa-levodopa (Sinemet) 10-100 MG tablet Take 1 tablet by mouth in the morning and 1 tablet inthe evening and 1 tablet before bedtime. 90 tablet 11 erythromycin (Romycin) 5 MG/GM ophthalmic ointment Apply to left eye 3 (three) times a day moxifloxacin (Vigamox) 0.5 % ophthalmic solution Administer 1 drop into the left eye in the morningand 1 drop at noon and 1 drop in the evening and 1 drop before bedtime. prednisoLONE acetate (Pred-Forte) 1 % ophthalmic suspension Administer 1 drop into the left eye Seeadministration instructions Every 2 hours valACYclovir (Valtrex) 1 g tablet Take 1,000 mg by mouth in the morning and 1,000 mg in the eveningand 1,000 mg before bedtime. Ascorbic Acid (vitamin C) 1000 MG tablet 1 (one) time each day at the same time. (Patient not taking: Reported on 09/14/2024) b complex vitamins capsule Take 1 capsule by mouth Daily (Patient not taking: Reported on 09/14/2024) calcium citrate (Calcitrate) 950 (200 Ca) MG tablet Take 475 mg by mouth in the morning and 475 mg before bedtime. (Patient not taking: Reported on 09/14/2024) cholecalciferol (Vitamin D-3) 125 MCG (5000 UT) capsule Take 5,000 Units by mouth in the morning. (Patient not taking: Reported on 09/14/2024) KRILL OIL PO Take 1 capsule by mouth Daily (Patient not taking: Reported on 09/14/2024) Multiple Vitamin (Multivitamin Adult) tablet 1 (one) time each day at the same time. (Patient not taking: Reported on 09/14/2024) [DISCONTINUED] amoxicillin-clavulanate (Augmentin) 875-125 MG tablet Take 875 mg by mouth in the morning and 875 mg before bedtime. [DISCONTINUED] meloxicam (Mobic) 7.5 MG tablet Take 1 tablet (7.5 mg) by mouth Daily 30 tablet 1 [DISCONTINUED] ondansetron (Zofran) 4 MG tablet Take 4 mg by mouth every 8 (eight) hours if needed for nausea or vomiting No current facility-administered medications on file prior to visit. 1. Herpes zoster iritis of left eye Currently under of the apologies care. 2. Body mass index (BMI) 22.0-22.9, adult 3. Post herpetic neuralgia (CMS/HCC) (Primary) Acute problem. I have known this lady for some time and she has always seem to be a fairly stoic individual, of the amount of pain she is having is fairly obvious in her demeanor. We talked about some ways to treat her pain. We discussed that sometimes this pain will resolve on its own and other times it can be permanent. We discussed how the gabapentin in the tramadol actually work. We discussed the major side effects. I explained to them how I wanted them to titrate the gabapentin. We also discussed that with the tramadol state Medical board considers at an opioid pain medication. We do have controlled substance rules to follow in the 1st supply can not be anymore than1 week. Since we are starting 2 new medications I am going to start low with the tramadol and the gabapentin have her ease into those medications. I specifically note the patient has one or more high risk medications that is a chronic problem that specifically increases complexity of decision making and complicates all prescribing including prescription renewal consistent with a moderate or complex degree of decision making. A high-risk medicine is one that may cause serious health problems if not taken the correct way, ortaken with another drug or food item that it may interact with. If the high-risk medication includes a controlled or reportable substance, The OARRS and NARX scores were reviewed and seem to be consistent with their prescribing pattern. Treatment regimens are increasingly complex and potentially harmful, and people with high risk medications need regular reviewand prescribing optimization. - gabapentin (Neurontin) 100 MG capsule; Titrate from 1 to 4 capsules three times daily as needed for pain Dispense: 100 capsule; Refill: 0 - traMADol (Ultram) 50 MG tablet; Take 1 tablet (50 mg) by mouth 3 (three) times a day as needed for moderate pain for up to 7 days Dispense: 21 tablet; Refill: 0 documented in this encounterCitizens Memorial [id number] History of Present illness Narrative* Samantha Bain MD - 08/04/2024 8:40 AM EST Images from the original note were not included. CHIEF COMPLAINT REASON FOR VISIT: Parkinsons HPI: Gela Fenton is a 79 y.o. female who presents for a follow up. She states she is still taking the sinemet. She states it has helped with the tremors. She takes her 1st dose 6 am , 2nd at 12 pm, and third at 6 pm. Denies any new symptoms. She states that she still gets pain in the right foot.She states it is right on the inside of the foot and sometimes on the outer part of the foot. She states if she is in the car and then gets out to stand it will be painful. CURRENT MEDICATIONS: ALLERGIES/DISCONTINUE MEDICATIONS Current Outpatient Medications Medication Instructions Ascorbic Acid (vitamin C) 1000 MG tablet Every 24 hours b complex vitamins capsule 1 capsule, Oral, Daily calcium citrate (CALCITRATE) 475 mg, Oral, 2 times daily carbidopa-levodopa (Sinemet) 10-100 MG tablet 1 tablet, Oral, 3 times daily cholecalciferol (VITAMIN D-3) 5,000 Units, Oral, Daily KRILL OIL PO 1 capsule, Oral, Daily Multiple Vitamin (Multivitamin Adult) tablet Every 24 hours No Known Allergies There are no discontinued medications. PAST MEDICAL HISTORY: SURGICAL/SOCIAL/FAMILY HISTORY DEPRESSION SCREEN: Past Medical History: Diagnosis Date Osteopenia per dexascan Right-sided Perez's palsy Skin cancer 10/21/2022 [facility] Past Surgical History: Procedure Laterality Date SKIN CANCER EXCISION 2014 Facial SKIN CANCER EXCISION 06/2023 Facial, TOTAL KNEE ARTHROPLASTY Right 10/21/2022 [facility] [place] Tobacco Use Smoking status: Never Smokeless tobacco: Never Vaping Use Vaping status: Never Used Substance Use Topics Alcohol use: Never Comment: Caffeine intake : 1 coffee per week Drug use: Never Family History Problem Relation Name Age of Onset Colon cancer Father No Known Problems Sister No Known Problems Brother No Known Problems Daughter No Known Problems Son Diabetes type II Maternal Grandfather Depression: Not at risk (09/04/2023) PHQ-2 PHQ-2 Score: 0 REVIEW OF SYMPTOMS: Review of Systems Constitutional: Negative for chills, diaphoresis, fatigue and fever. HENT: Negative for ear pain, tinnitus and trouble swallowing. Eyes: Negative for photophobia and visual disturbance. Respiratory: Negative for cough and shortness of breath. Cardiovascular: Negative for palpitations and leg swelling. Gastrointestinal: Negative for abdominal pain and nausea. Genitourinary: Negative for difficulty urinating and urgency. Musculoskeletal: Positive for gait problem. Negative for arthralgias, back pain, myalgias, neck pain and neck stiffness. Neurological: Positive for tremors. Negative for weakness, light-headedness and numbness. Psychiatric/Behavioral: Negative for agitation, confusion and suicidal ideas. OBJECTIVE: 08/04/2024 8:43 AM 06/09/2024 8:51 AM 04/09/2024 9:48 AM Vitals BMI 22.48 kg/m2 21.92 kg/m2 22.3 kg/m2 BSA (m2) 1.52 m2 1.5 m2 1.52 m2 Systolic 130 124 Diastolic 82 82 Height (in) 5' 1 5' 1 5' 1 Weight (lb) 119 116 118 Visit Report Report Report Report EXAM: Neurological Exam Mental Status Awake, alert and oriented to person, place and time. Oriented to person, place and time. Recent andremote memory are intact. Speech is normal. Language is fluent with no aphasia. Attention and concentration are normal. Cranial Nerves CN II: Visual acuity is normal. Visual walker full to confrontation. CN III, IV, : Extraocular movements intact bilaterally. Normal lids and orbits bilaterally. Pupils equal round and reactive to light bilaterally. CN V: Facial sensation is normal. CN VII: Full and symmetric facial movement. CN VIII: Hearing is normal. CN XII: Tongue midline without atrophy or fasciculations. Motor Normal muscle bulk throughout. Normal muscle tone. Right Left Wrist flexion 5 5 Wrist extension 5 5 Right Left Deltoid 5 5 Biceps 5 5 Triceps 5 5 Wrist flexor 5 5 Wrist extensor 5 5 Glutei 5 5 Iliopsoas 5 5 Quadriceps 5 5 Gastrocnemius 5 5 Anterior tibialis 5 5 Posterior tibialis 5 5 Sensory Light touch is normal in upper and lower extremities. Pinprick is normal in upper and lower extremities. Vibration is normal in upper and lower extremities. Reflexes Right Left Brachioradialis 2+ 2+ Biceps 2+ 2+ Patellar 2+ 2+ Achilles 2+ 2+ Right Plantar: downgoing Left Plantar: downgoing Right pathological reflexes: Manolo's absent. Ankle clonus absent. Left pathological reflexes: Manolo's absent. Ankle clonus absent. Coordination Tqsxfn-yp-dyie, rapid alternating movements and obeo-da-rpbz normal bilaterally without dysmetria. Gait Normal casual, toe, heel and tandem gait. Romberg is absent. PROCEDURE: NONE ASSESSMENT AND PLAN: Gela Fenton is a 79 y.o. female who presents with tremor in the right upper & lower extremity. Possible etiologies include benign essential tremor, extrapyramidal symptoms secondary to medications, or a neurodegenerative process such as Parkinson's disease. An additional consideration would be tremor secondary to a metabolic process or a psychogenic tremor from stress. Diagnoses and all orders for this visit: Primary osteoarthritis of right foot Start meloxicam (Mobic) 7.5 MG tablet; Take 1 tablet (7.5 mg) by mouth Daily to help relieve pain & stiffness. Parkinson's disease 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 (CMS/HCC) Continue carbidopa-levodopa (Sinemet) 10-100 MG tablet; Take 1 tablet by mouth in the morning and 1tablet in the evening and 1 tablet before bedtime to reduce tremors. I counseled the patient on the possible side effects and interactions of medications. Follow up 3 months. documented in this encounterCitizens Memorial [id number] History of Present illness Narrative* Samantha Bain MD - 06/09/2024 8:40 AM EDT Images from the original note were not included. CHIEF COMPLAINT REASON FOR VISIT: tremor HPI: Gela Fenton is a 79 y.o. female who presents for a follow up. She does want to go over MRI results. She states she is still taking the carbidopa 3 times a day. She states she still has the tremor in the right upper and lower extremity. She states she thinks the medication is helping some. She states she only notices the tremors when she is more anxious/stressed. She states she does think her hand writing has gotten better. She states she does have good and bad days with sleep. She feelslike that is normal. Denies any new symptoms or concerns at this time. CURRENT MEDICATIONS: ALLERGIES/DISCONTINUE MEDICATIONS Current Outpatient Medications Medication Instructions Ascorbic Acid (vitamin C) 1000 MG tablet Every 24 hours b complex vitamins capsule 1 capsule, Oral, Daily calcium citrate (CALCITRATE) 475 mg, Oral, 2 times daily carbidopa-levodopa (Sinemet) 10-100 MG tablet 1 tablet, Oral, 3 times daily cholecalciferol (VITAMIN D-3) 5,000 Units, Oral, Daily KRILL OIL PO 1 capsule, Oral, Daily Multiple Vitamin (Multivitamin Adult) tablet Every 24 hours No Known Allergies Medications Discontinued During This Encounter Medication Reason carbidopa-levodopa (Sinemet) 10-100 MG tablet Reorder PAST MEDICAL HISTORY: SURGICAL/SOCIAL/FAMILY HISTORY DEPRESSION SCREEN: Past Medical History: Diagnosis Date Osteopenia per dexascan Right-sided Perez's palsy Skin cancer 10/21/2022 [facility] Past Surgical History: Procedure Laterality Date SKIN CANCER EXCISION 2014 Facial SKIN CANCER EXCISION 06/2023 Facial, TOTAL KNEE ARTHROPLASTY Right 10/21/2022 [facility] [place] Tobacco Use Smoking status: Never Smokeless tobacco: Never Vaping Use Vaping status: Never Used Substance Use Topics Alcohol use: Never Comment: Caffeine intake : 1 coffee per week Drug use: Never Family History Problem Relation Name Age of Onset Colon cancer Father No Known Problems Sister No Known Problems Brother No Known Problems Daughter No Known Problems Son Diabetes type II Maternal Grandfather Depression: Not at risk (09/04/2023) PHQ-2 PHQ-2 Score: 0 REVIEW OF SYMPTOMS: Review of Systems Constitutional: Negative for chills, diaphoresis, fatigue and fever. HENT: Negative for ear pain, tinnitus and trouble swallowing. Eyes: Negative for photophobia and visual disturbance. Respiratory: Negative for cough and shortness of breath. Cardiovascular: Negative for palpitations and leg swelling. Gastrointestinal: Negative for abdominal pain and nausea. Genitourinary: Negative for difficulty urinating and urgency. Musculoskeletal: Negative for arthralgias, back pain, myalgias, neck pain and neck stiffness. Neurological: Positive for tremors. Negative for weakness, light-headedness and numbness. Psychiatric/Behavioral: Negative for agitation, confusion and suicidal ideas. OBJECTIVE: 06/09/2024 8:51 AM 04/09/2024 9:48 AM 01/12/2024 4:02 PM Vitals BMI 21.92 kg/m2 22.3 kg/m2 22.3 kg/m2 BSA (m2) 1.5 m2 1.52 m2 1.52 m2 Systolic 124 Diastolic 82 Height (in) 5' 1 5' 1 5' 1 Weight (lb) 116 118 118 Visit Report Report Report Report EXAM: Neurological Exam Mental Status Awake, alert and oriented to person, place and time. Oriented to person, place and time. Recent andremote memory are intact. Speech is normal. Language is fluent with no aphasia. Attention and concentration are normal. Cranial Nerves CN II: Visual acuity is normal. Visual walker full to confrontation. CN III, IV, : Extraocular movements intact bilaterally. Normal lids and orbits bilaterally. Pupils equal round and reactive to light bilaterally. CN V: Facial sensation is normal. CN VII: Full and symmetric facial movement. CN VIII: Hearing is normal. CN XII: Tongue midline without atrophy or fasciculations. Motor Normal muscle bulk throughout. Normal muscle tone. Right Left Wrist flexion 5 5 Wrist extension 5 5 Right Left Deltoid 5 5 Biceps 5 5 Triceps 5 5 Wrist flexor 5 5 Wrist extensor 5 5 Glutei 5 5 Iliopsoas 5 5 Quadriceps 5 5 Gastrocnemius 5 5 Anterior tibialis 5 5 Posterior tibialis 5 5 Sensory Light touch is normal in upper and lower extremities. Pinprick is normal in upper and lower extremities. Vibration is normal in upper and lower extremities. Reflexes Right Left Brachioradialis 2+ 2+ Biceps 2+ 2+ Patellar 2+ 2+ Achilles 2+ 2+ Right Plantar: downgoing Left Plantar: downgoing Right pathological reflexes: Manolo's absent. Ankle clonus absent. Left pathological reflexes: Manolo's absent. Ankle clonus absent. Coordination Letafu-gj-kqki, rapid alternating movements and nnnp-ga-rorx normal bilaterally without dysmetria. Gait Normal casual, toe, heel and tandem gait. Romberg is absent. PROCEDURE: NONE ASSESSMENT AND PLAN: Diagnoses and all orders for this visit: Parkinson's disease 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 (CMS/HCC) Increase carbidopa-levodopa (Sinemet) 10-100 MG tablet; Take 1 tablet by mouth in the morning and 1tablet in the evening and 1 tablet before bedtime for tremors. Total time 20 minutes spent reviewing records, performing medically appropriate exam, counseling , education, ordering medication, tests, and/or procedures, documenting health information into the health record, communicating results to the patient, and coordinating care. Follow up 8 weeks. documented in this encounterCitizens Memorial [id number] History of Present illness Narrative* Samantha Bain MD - 04/09/2024 9:40 AM EDT Images from the original note were not included. CHIEF COMPLAINT REASON FOR VISIT: Right sided weakness, tremors HPI: Gela Fenton is a 79 y.o. female who presents for a new patient consult referred by Dr. Ferraro. She states she does have right sided weakness. She states she has sore ness in her right foot. She states anytime she steps down and puts weight on it, it will hurt on the bottom of the foot but it will go away. She states she did have knee done two years ago in September. She did think her weakness got worse after that. But she did have symptoms prior to the surgery. She states she has trouble bending her toes/foot back. She does have some trouble with lifting the legs. She does get tremorsin he right leg. She states it is more stuff. She states her arm does not swing naturally. States she holds it but when she thinks about it she can swing it. She states the tremors goes in spurts. She does exercise 4 times a week. She does do exercises at home and goes to different exercises programs. She denies any changes in taste or smell. Denies any other symptoms. CURRENT MEDICATIONS: ALLERGIES/DISCONTINUE MEDICATIONS Current Outpatient Medications Medication Instructions Ascorbic Acid (vitamin C) 1000 MG tablet Every 24 hours b complex vitamins capsule 1 capsule, Oral, Daily calcium citrate (CALCITRATE) 475 mg, Oral, 2 times daily cholecalciferol (VITAMIN D-3) 5,000 Units, Oral, Daily KRILL OIL PO 1 capsule, Oral, Daily Multiple Vitamin (Multivitamin Adult) tablet Every 24 hours No Known Allergies There are no discontinued medications. PAST MEDICAL HISTORY: SURGICAL/SOCIAL/FAMILY HISTORY DEPRESSION SCREEN: Past Medical History: Diagnosis Date Osteopenia per dexascan Right-sided Perez's palsy [facility] Past Surgical History: Procedure Laterality Date SKIN CANCER EXCISION 2014 Facial SKIN CANCER EXCISION 06/2023 Facial, TOTAL KNEE ARTHROPLASTY Right 10/21/2022 [facility] [place] Tobacco Use Smoking status: Never Smokeless tobacco: Never Vaping Use Vaping status: Never Used Substance Use Topics Alcohol use: Never Comment: Caffeine intake : 1 coffee per week Drug use: Never Family History Problem Relation Name Age of Onset Colon cancer Father No Known Problems Sister No Known Problems Brother No Known Problems Daughter No Known Problems Son Diabetes type II Maternal Grandfather Depression: Not at risk (09/04/2023) PHQ-2 PHQ-2 Score: 0 REVIEW OF SYMPTOMS: Review of Systems Constitutional: Negative for chills, diaphoresis, fatigue and fever. HENT: Negative for ear pain, tinnitus and trouble swallowing. Eyes: Negative for photophobia and visual disturbance. Respiratory: Negative for cough and shortness of breath. Cardiovascular: Negative for palpitations and leg swelling. Gastrointestinal: Negative for abdominal pain and nausea. Genitourinary: Negative for difficulty urinating and urgency. Musculoskeletal: Positive for gait problem. Negative for arthralgias, back pain, myalgias, neck pain and neck stiffness. Neurological: Positive for tremors and weakness. Negative for light-headedness and numbness. Psychiatric/Behavioral: Negative for agitation, confusion and suicidal ideas. OBJECTIVE: 04/09/2024 9:48 AM 01/12/2024 4:02 PM 10/14/2023 8:17 AM Vitals BMI 22.3 kg/m2 22.3 kg/m2 22.07 kg/m2 BSA (m2) 1.52 m2 1.52 m2 1.51 m2 Temp 97.8 F Height (in) 5' 1 5' 1 5' 1 Weight (lb) 118 118 116.8 Visit Report Report Report Report EXAM: Neurological Exam Mental Status Awake, alert and oriented to person, place and time. Oriented to person, place and time. Recent andremote memory are intact. Speech is normal. Language is fluent with no aphasia. Attention and concentration are normal. Cranial Nerves CN II: Visual acuity is normal. Visual walker full to confrontation. CN III, IV, : Extraocular movements intact bilaterally. Normal lids and orbits bilaterally. Pupils equal round and reactive to light bilaterally. CN V: Facial sensation is normal. CN VII: Full and symmetric facial movement. CN VIII: Hearing is normal. CN XII: Tongue midline without atrophy or fasciculations. Motor Normal muscle bulk throughout. Normal muscle tone. Right Left Wrist flexion 5 5 Wrist extension 5 5 Right Left Deltoid 5 5 Biceps 5 5 Triceps 5 5 Wrist flexor 5 5 Wrist extensor 5 5 Glutei 5 5 Iliopsoas 5 5 Quadriceps 5 5 Gastrocnemius 5 5 Anterior tibialis 5 5 Posterior tibialis 5 5 Sensory Light touch is normal in upper and lower extremities. Pinprick is normal in upper and lower extremities. Vibration is normal in upper and lower extremities. Reflexes Right Left Brachioradialis 2+ 2+ Biceps 2+ 2+ Patellar 2+ 2+ Achilles 2+ 2+ Right Plantar: downgoing Left Plantar: downgoing Right pathological reflexes: Manolo's absent. Ankle clonus absent. Left pathological reflexes: Manolo's absent. Ankle clonus absent. Coordination Rsopdm-kx-tfna, rapid alternating movements and alqs-ua-pctl normal bilaterally without dysmetria. Gait Normal casual, toe, heel and tandem gait. Romberg is absent. PROCEDURE: NONE ASSESSMENT AND PLAN: Gelaleanna Fenton is a 79 y.o. female who presents with tremor in the right lower extremity. Possible etiologies include benign essential tremor, extrapyramidal symptoms secondary to medications, or a neurodegenerative process such as Parkinson' s disease. An additional consideration would be tremor secondary to a metabolic process or a psychogenic tremor from stress.I will obtain an MRI of thebrain to assess for an intracranial process which may be contributing to the patient's symptoms including stiffness and tremors in the lower right extremity. Diagnoses and all orders for this visit: Parkinson's disease 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 (CMS/HCC) Right-sided muscle weakness I will order MR brain w and wo contrast routine; Future to be done at [facility] Start carbidopa-levodopa (Sinemet) 10-100 MG tablet; Take 0.5 tablets by mouth in the morning and 0.5 tablets in the evening and 0.5 tablets before bedtime. Follow up 8 weeks. documented in this encounterCitizens Memorial [id number] NotePT evaluation completed with an -[facility] six clicks score of 20/24. Pt. able to complete bed mobilityand sit<>stand transfers at Mod I level. Pt. able to ambulate 88 ft. with FWW, WBAT R LE withCGA progressing to close supervision. No knee buckling or loss of balance with level surface ambulation at this time. Pt. able to negotiate 2 steps safely with CGA using SPC and L hand rail to ascendstairs. Pt. would be functionally safe to return home once medically stable with family assist and Ortho 360 to follow.[facility]02-27-2023 Evaluation + Plan noteExtracted from:Title:ANES Post-operative Note - GeneralAuthor:Juan Jose Lucero Jr., DO GDate:10/21/22 Plan Transfer/Discharge: Transfer/Discharge Discharge when meets criteria ( From PACU to Ambulatory Surgery Unit, and To home ). Extracted from:Title:ANEElisabeth Pre-operative Note - AdultAuthor:Juan Jose Lucero Jr., DOate:10/21/22 Plan [place] [employer] (ASA) physical status classification: Class III. Anesthetic Preoperative Plan: Anesthesia General. Regional Adductor canal block.[facility]02-27-2023 Hospital Discharge instructions Patient Education 10/21/2022 08:49:18 [facility] - Total Knee Arthroplasty (Custom) [place], [place] [facility] DISCHARGE INSTRUCTIONS TOTAL KNEE ARTHROPLASTY INCISION CARE: Aquacell dressing can get wet with showers. Please remove 10 days after surgery per instruction sheet. If zaire present, please coordinate removal 14 days after surgery with office staff. Please notify the office if any increase in redness, tenderness, drainage, fever, or wound separation is noted beyond this point. Compression stockings may be helpful if any significant or uncomfortable swelling in the legs is noted postoperatively. Use and removal instructions should be given by physical therapy. If the swelling is below the knee, knee high compression stockings may suffice. If this does cause swelling into the thigh region, waist high compression stockings may be beneficial as well. These can be obtained from most pharmacies, or can be obtained from the hospital or through Home Health. The mild grade compression stockings are best used initially. MEDICATIONS: You may resume your home medications at the time of discharge. Aspirin 325 mg EC oral twice a day for 4 weeks for blood clot prevention with meals. Please notify your doctor if you have a stomach sensitivity to Aspirin or history of previous stomach ulcers. Pain medication has been prescribed as well. You may continue to use the pain medication every fourhours as needed. Any narcotic pain medication can cause side effects including stomach upset, constipation, or light-headedness. You should not drive or operate machinery, or use alcohol while using the narcotic pain medication. You should not use other pain medications with this prescription pain medication unless further directed by your physician. PHYSICAL THERAPY: Continue the range of motion and strengthening exercises initiated in Physical Therapy in the hospital. [facility] Discharge Instructs for TKAPage 2 Physical Therapy Cont. Continue weight bearing, as ordered, to the operated knee for four to six weeks as directed in Physical Therapy, or until your strength is improved and Physical Therapy will then allow you to progress to full weight. This will be with the use of a walker or crutches initially. After four or six weeks you may then progress to the use of one crutch, or a cane. A quad-cane is preferred as this is more stable. Physical therapy as begun in the hospital will continue at home, possible with the housekeeper/laundry assistant of Home Health Physical Therapy or in the hospital as an outpatient. When you have become independent withthe physical therapy program, this will then be discontinued as a supervised program and you will be instructed to continue the physical therapy exercises at home. Your exercises are alba to successful rehabilitation. You should gain full extension first, hopefully before hospital discharge, then continue to do the exercises to maintain this, and gain 90 degreesflexion by one month post-op. Do the exercises daily, twice if preferred. DRIVING: Please do not drive for 4-6 weeks pending therapy progress. 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 It is therefore advised not to drive until after yourfirst office visit following surgery FOLLOW-UP OFFICE VISIT: Amira Flaherty, DO [facility] [address] [place] [id number] Reviewed: 11-3010/21/2022 08:42:46 Knee Cryocuff Patient Instructions - FT (CUSTOM) 10/21/2022 08:42:46 Post Op Patient Instructions - FT (CUSTOM) Follow Up Care 08/30/2022 12:15:23 With:Amira Flaherty Address: [address] [place] [phone] (1) When:11/19/2022 13:30:00 Comments:Keep scheduled appointment [facility]02-23-2023 Note [id number]:127[facility] 05-27-2022 NoteCLINICAL HISTORY: Pain, Traumatic bone density evaluation COMPARISON: NONE. FINDINGS: Bone density measurements for the right femoral neck are BMD 0.542g/cm2 Tscore -2.8 Age-matched Z score -0.7 Bone density measurements for the left femoral neck are BMD 0.542g/cm2 Tscore -2.8 Age-matched Z score -0.7 Bone density measurements for the lumbar spine (L1-L4) are BMD 0.688g/cm2 Tscore -3.3 Age-matched Z score -0.9 IMPRESSION: The bone density may measurements listed above for the bilateral femoral necks in the lumbar spine indicate OSTEOPOROSIS. This places the patient at a significant increased risk for fracture. Recommend follow-up exam in one year, sooner as clinically necessary. Note World Health Organization definition of osteoporosis and osteopenia for women: Normal = T score at or above -1.0 SD Osteopenia = T score between -1.0 and -2.5 SD Osteoporosis = T score at or below -2.5 SD Report reported and signed by PHILOMENA HAYS on 05/27/2022 [id number] No data available for this section [facility] Future Appointments Appointment Date:10/14/2022 08:00:00 AM Scheduled Provider: Location:[facility] Appointment Type:Surgery PAT COVID Testing Appointment Date:10/21/2022 12:30:00 PM Scheduled Provider: Location:[facility] Appointment Type:Surgery FT Diagnostic Tests Pending * Urine Culture [facility]30[facility]22 [facility] Diagnosis Parkinson's disease 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 (CMS/HCC) documented in this encounter [facility]* Diagnosis Primary osteoarthritis of right foot- Primary Parkinson's disease 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 documented in this encounter [facility]* Diagnosis Left knee pain, unspecified chronicity- Primary History of total right knee replacement documented in this encounter [facility]* Diagnosis PHN (postherpetic neuralgia) (CMS/HCC)- Primary 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 disease 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 (CMS/HCC) documented in this encounter [facility]* Diagnosis Parkinson's disease 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 (CMS/HCC) - Primary PHN (postherpetic neuralgia) ([facility]/HCC) Herpes zoster with other nervous system complications documented in this encounter [facility] note* Diagnosis Acute right ankle pain Right ankle swelling Effusion of ankle and foot joint documented in this encounter [facility] Discharge instructions No data available for this section [facility] Additional Instructions Follow-up with your primary care doctor Return to ED if develop worsening symptoms or concerns You have COVID, it is a virus, you need to drink plenty of fluids, rest, tylenol and or motrin for pain if you can take this medicationMercy Health St. [facility] Work Phone: Hospital Discharge instructions Additional Instructions Take the valacyclovir 1000 mg by mouth 3 times a day for the next 7 days. Take mozy-fuh-krycczi Tylenol/Motrin as needed for any fever or discomfort. May apply ointment for discomfort. Follow-up with ophthalmology referral to Dr. Deutsch's office. Return here if symptoms persist or worsen.[facility] Work Phone: Hospital Discharge instructions Additional Instructions Stop gabapentin and tramadolMercy Health St. [facility] Work Phone: Progress note No data available for this section [facility] for [facility] Narrative* Consultation (Routine) - ClosedSpecialtyDiagnoses / ProceduresReferred By ContactReferred To Contact Neurology Diagnoses Right-sided muscle weakness Tremor due to disorder of central nervous system Procedures OR OFFICE/OUTPATIENT [facility] 60 MINUTES Shawn Ferraro MD [address] [place] [address] Samantha Bain MD [address] [facility] [address] [place] [address] Referral IDStatusReasonStart DateExpiration DateVisits RequestedVisits [id number] Specialty Services Required / [facility] Summary Purpose Family History No Family History Records FoundNo Family History Records FoundNo Family History Records FoundNo Family History Records FoundNo Family History Records Found Advance Directives No Advanced Directives Records FoundDocuments on File TypeDate RecordedPatient RepresentativeExplanationAdvance Directives and Living Will Advance DirectivesTypeDate RecordedPatient Operating Room Rn ExplanationAdvance Directives and Living Will Advance Directives Advance Directive Response Recorded Date/ Time Advance Directives No August 27, 2024 6:31am Reason for Referral SpecialtyDiagnoses / ProceduresReferred By ContactReferred To ContactRadiology Diagnoses Right-sided muscle weakness Tremor due to disorder of central nervous system Procedures MR brain w and wo contrast routine Samantha Bain MD [address] [facility] [address], [place] [address] [employer] Fnr Mr [address] [facility] [address] [place] [address] Referral IDStatusReasonStart DateExpiration DateVisits RequestedVisits [id number]/ Chief Complaint and Reason for Visit Chief Complaint Admit Date sob, covid + August 27, 2024 5: 42am Chief Complaint Admit Date sob, covid + August 27, 2024 5: 42am lt eye swelling August 29, 2024 1: 01pm Chief Complaint Admit Date sob, covid + August 27, 2024 5: 42am lt eye swelling August 29, 2024 1: 01pm lt eye issues September 22, 2024 2 :20pm Additional Source Comments INFORMATION SOURCE (unrecogn ized section and content) DATE CREATED AUTHOR 12/19/2020 [facility] DATE CREATED AUTHOR AUTHOR'S ORGANIZ ATION 05/28/2022 [facility] [employer] DATE CREATED AUTHOR AUTHOR'S ORGANIZ ATION 11/06/2022 [facility] DATE CREATED AUTHOR AUTHOR'S ORGANIZ ATION 10/03/2024 [facility] DATE CREATED AUTHOR AUTHOR'S ORGANIZ ATION 05/30/2025 [facility] EPIC Patient Care team informatio n (unrecognized section and content) Team MemberRelationshipSpecialtyStart DateEnd Date Shawn Ferraro MD [address] [place] [address] (Fax) PCP - [facility]02/20/23 Shawn Ferraro MD [address] [place] [address] (Fax) PCP - [facility]08/25/23Team MemberRelationshipSpecialtyStart DateEnd Date Shawn Ferraro MD [address] [place] [address] (Fax) PCP - [facility] Medicine02/20/23 Shawn Ferraro MD [address] [place] [address] (Fax) PCP - [facility]08/25/23Team MemberRelationshipSpecialtyStart DateEnd Date Shawn Ferraro MD [address] [place] [address] (Fax) PCP - Generalmi Medicine02/20/23 Shawn Ferraro MD [address] [place] [address] (Fax) PCP - [facility]08/25/2411Team MemberRelationshipSpecialtyStart DateEnd Date Shawn Ferraro MD [address] [place] [address] (Fax) PCP - GeneralFamily Medicine02/20/23 Shawn Ferraro MD [address] [place] [address] (Fax) PCP - [facility]08/25/2411Team MemberRelationshipSpecialtyStart DateEnd Date Shawn Ferraro MD [address] [place] [facility] [place] [address] (Fax) [facility]/20/23 Shawn Ferraro MD [address] [place] [facility] [place] [address] (Fax) PCP - [facility]08/25/23Team MemberRelationshipSpecialtyStart DateEnd Date Shawn Ferraro MD [address] [place] [facility] [place] [address] (Fax) [facility] - [facility]02/20/23 Shawn Ferraro MD [address] [place] [facility] [place] [address] (Fax) PCP - [facility]08/25/23 Team Status: Active Member Role Status Dates Shawn Ferraro MD Primary Care Provider Active Team Status: Inactive Member Role Status Dates Anthony Lopez DO Emergency Provider Active Sta rt: August 27, 2024 End: August 27, 2024Falguni Terrell Care ProviderActiveStart: August 27, 2024 End: August 27, 2024 Team Status: Inactive Member Role Status Dates Shawn Ferraro MD Primary Care Provider Active Start: August 29, 2024 End: August 29Margot Drake ProviderActiveStart: August 29, 2024 End: August 29, 2024Team MemberRelationshipSpecialtyStart DateEnd Date Shawn Ferraro MD [address] [place] [address] (Fax) PCP - GeneralFamily Medicine02/20/23Team MemberRelationshipSpecialtyStart DateEnd Date Shawn Freraro MD [address] [place] [address] (Fax) [facility] - [facility]02/20/23Team MemberRelationshipSpecialtyStart DateEnd Date Shawn Ferraro MD [address] [place] [address] (Fax) PCP - GeneralFami Medicine02/20/23 Team Status: Active Member Role Status Dates Shawn Ferraro MD Primary Care Provider Active Start: August 28, 2024 Franny Hodge ProviderActiveStart: August 28, 2024 Team Status: Inactive Member Role Status Dates Shawn Ferraro MD Primary Care Provider Active Start: September 22, 2024 End: September 22, 2024Imani Cook ProviderActiveStart: September 22, 2024 End: September 22, 2024Team MemberRelationshipSpecialtyStart DateEnd Date Shawn Ferraro MD [address] [place] [address] (Fax) PCP - [facility]02/20/23Team MemberRelationshipSpecialtyStart DateEnd Date Shawn Ferraro MD [address] [place] [address] (Fax) PCP - GeneralFamily Medicine02/20/23Team MemberRelationshipSpecialtyStart DateEnd Date Shawn Ferraro MD [address] [place] [address] (Fax) PCP - GeneralFamily Medicine02/20/23Team MemberRelationshipSpecialtyStart DateEnd Date Shawn Ferraro MD [address] [place] [address] (Fax) PCP - GeneralFamily Medicine02/20/23Team MemberRelationshipSpecialtyStart DateEnd Date Shawn Ferraro MD [address] [place] [address] (Fax) PCP - GeneralFamily Medicine02/20/23 Ruthy Cortes, CLARITY DEVELOPER [facility]11/02/24Team MemberRelationshipSpecialtyStart DateEnd Date Shawn Ferraro MD [address] [place] [address] (Fax) PCP - GeneralFamily Medicine02/20/23 Shawn Ferraro MD [address] [place] [address] (Fax) PCP - Medical [place] MA08/25/2511Team MemberRelationshipSpecialtyStart Date End Date Shawn Ferraro MD [address] [place] [address] (Fax) PCP - GeneralFamily Medicine02/20/23 Shawn Ferraro MD [address] [place] [address] PCP - Medical [place] 08/25/2511 Reason for Visit (unrecogniz ed section and content) ReasonCommentsMed Change RequestReasonCommentsFollow-upReasonCommentsPainReason CommentsAnkle Pain Goals (unrecognized section and content) Goals may be documented in a n alternate section FOR RECORDS PERTAINING TO PATIENTS WHO ARE OR HAVE BEEN ENROLLED IN A CHEMICAL DEPENDENCY/SUBSTANCEABUSE PROGRAM, SOME INFORMATION MAY BE OMITTED. This clinical summary was aggregated from multiple sources. Caution should be exercised in using it in the provision of clinical care. This summary normalizes information from multiple sources, and as a consequence, information in this document may materially change the coding, format and clinical context of patient data. In addition, data may be omitted in some cases. CLINICAL DECISIONS SHOULD BE BASED ON THE PRIMARY CLINICAL RECORDS. [employer] [facility]. provides no warranty or guarantee of the accuracy or completeness of information in this document.
== END 2025-06-17 20:13 | disposition home or self-care (01) ==
PROVIDERS: Emergency Provider Internal Medicine; PCP Family Medicine
DX: S93.401A Sprain of unspecified ligament of right ankle, initial encounter (principal); X58.XXXA Exposure to other specified factors, initial encounter; M79.661 Pain in right lower leg
CPT/HCPCS: 93971; 99284